=== PATIENT | female | born 2000 | race Caucasian/White ===

== ENCOUNTER 2022-11-09 03:56 | Emergency (ER) | payer OTHER, MEDICAID, SELFPAY ==
[2022-11-09 04:00] VITALS: BP 136/91; PULSE 86; RESP 16; TEMP 36.8; O2SAT 97; BMI 44.7
[2022-11-09] MEDS: FLUORESCEIN SODIUM 1 MG STRIP (04:51)
--- NOTE | 2022-11-09 05:26 | ED_ITS ---
HPI - General Adult General Chief complaint: Eye Problems Stated complaint: BWC, EYE FOREIGN BODY Time Seen by Provider: 11/09/22 05:06 Source: patient Mode of arrival: walk-in Limitations: no limitations History of Present Illness HPI narrative: Patient is a 22-year-old female who is presenting to the Emergency Room with chief concern of having fiberglass shavings in her eyes. 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 Patient was wearing her safety goggles. Patient feels like fiberglass pieces at the factory were blown into her eyes. Patient has very sharp sensation to both arise. Patient irrigated her eyes in the bathroom at work with eyewash and the water in the sink. Patient drove to the Emergency Room for evaluation. Patient was glasses and no contacts. Patient has no loss of vision, blurred vision or double vision. No other acute complaints. This is a worker's comp injury. No drainage or redness noted to the eyes. No obvious foreign bodies noted. Related Data Previous Rx's Medication Instructions Recorded erythromycin 5 mg/gram (0.5 %) eye 0.5 inch ophthalmic (eye) Q4H 1/2 11/09/22 ointment ribbon to each eye every 4 hours x 7-10 days #3.5 grams Allergies Allergy/AdvReac Type Severity Reaction Status Date / Time No Known Drug Allergies Allergy Verified 11/09/22 04:05 Review of Systems ROS Narrative All systems are negative except as noted/marked. All systems reviewed and otherwise negative. PFSH PFS Social History Smoking status: Never smoker Exam Narrative Exam Narrative: Nurses note and vital signs reviewed and patient is not hypoxic. General: The patient appears well and in no apparent distress. Patient is resting comfortably on cart. Patient is not toxic, lethargic, or listless Skin: Warm, dry, no pallor noted. There is no rash noted. No petechiae, purpura. Head: Normocephalic, atraumatic Eye: Normal conjunctiva, no drainage, EOMI. PERRL. see eye exam, see visual acuity chart. Ears, Nose, Mouth, and Throat: oral mucosa is moist. Cardiovascular: Regular Rate and Rhythm, no murmur, gallop, rub Respiratory: Patient is in no distress, no accessory muscle use, lungs are clear to auscultation, no wheezing, rales or rhonchi Musculoskeletal: Patient has full range of motion of all of the extremities, no motor, sensory, or focal neurological deficits Neurological: A&O x3, normal speech Psychiatric: Cooperative Constitutional Vital Signs - 24 hr 11/09/22 04:00 Temperature 98.3 F Pulse Rate [Monitor] 86 Respiratory Rate 16 Blood Pressure [Left Arm] 136/91 H Pulse Oximetry 97 Oxygen Delivery Method Room Air Course Vital Signs Vital signs: Vital Signs Temperature 98.3 F 11/09/22 04:00 Pulse Rate 86 11/09/22 04:00 Respiratory Rate 16 11/09/22 04:00 Blood Pressure 136/91 H 11/09/22 04:00 Pulse Oximetry 97 11/09/22 04:00 Oxygen Delivery Method Room Air 11/09/22 04:00 Temperature 98.3 F 11/09/22 04:00 Pulse Rate 86 11/09/22 04:00 Respiratory Rate 16 11/09/22 04:00 Blood Pressure 136/91 H 11/09/22 04:00 Pulse Oximetry 97 11/09/22 04:00 Oxygen Delivery Method Room Air 11/09/22 04:00 Medical Decision Making MDM Narrative Medical decision making narrative: See eye exam. Visual acuity showed no acute changes. Patient only wears glasses. Patient has no corneal abrasion, ulceration or abrasions noted. Patient was sent home with a home pack for erythromycin ointment. Patient has to drive back to work and the paperwork and then she is going home. Patient will apply eye ointment when she gets home before she goes the bed. Work restrictions were given. Patient will follow-up with occupational health And her own eye physician as well as needed. This is a Worker's Comp. case, patient was referred occupational health Discharge Plan Discharge Chief Complaint: Eye Problems Clinical Impression: Eye foreign bodies Patient Disposition: Home, Self-Care Condition: Fair Prescriptions / Home Meds: New erythromycin 5 mg/gram (0.5 %) ointment 0.5 inch ophthalmic (eye) Q4H Qty: 3.5 0RF Instructions: Eye Foreign Body (ED) Additional Instructions: Follow-up with occupational therapy, name and number provided on paperwork. Stand Alone Forms: Portal Instructions Referrals: Occupational health clinic, [facility] [Other] - As soon as possible Tino Laogs MD [Primary Care Provider] - 1 week Procedures ED Procedure Instructions Procedures Procedures: Eye exam: See visual acuity that was done. Patient had 3 drops of tetracaine placed to both eyes. Patient had good pain relief with tetracaine was placed. Patient had fluorescein stain to both eyes, no ulcerations or foreign bodies or abrasions were noted. Patient had 40 mL of normal saline that was used to flush each eye, Yasmin Godfrey RN was a bedside for assistance. Patient had a procedure well without difficulty. No foreign bodies were noted. No drainage. No redness to the eyes. Upper and lower eyelid were both inverted, no foreign bodies noted.
== END 2022-11-09 05:52 | disposition home or self-care (01) ==
PROVIDERS: Emergency Provider Emergency Medicine; PCP Family Medicine
DX: T15.92XA Foreign body on external eye, part unspecified, left eye, initial encounter (principal); T15.91XA Foreign body on external eye, part unspecified, right eye, initial encounter
CPT/HCPCS: 99283

== ENCOUNTER 2023-02-23 03:02 | Emergency (ER) | payer MEDICAID, SELFPAY ==
[2023-02-23] VITALS (11 sets, daily range): BP systolic 140; BP diastolic 90; PULSE 62–77; RESP 13–26; TEMP 36.5; O2SAT 97; BMI 39.3
--- NOTE | 2023-02-23 03:19 | ECG_ITS ---
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
--- NOTE | 2023-02-23 03:21 | ED.DIZZY1 ---
HPI - Dizziness General Chief Complaint: Dizziness Stated Complaint: n/a Time Seen by Provider: 02/23/23 03:19 Source: patient Mode of arrival: ambulance Limitations: no limitations History of Present Illness HPI Narrative: This 23-year-old female is brought to the emergency department by EMS from work. The patient states that she was feeling fine earlier tonight. She took her lunvh break earlier and went back to her job and then felt dizzy. 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 She states that every time she moves her head she feels dizzy. She does not have a headache. She is not a sore throat. She did have some indigestion type of chest pain. She denies any nausea or vomiting. She has no focal weakness numbness or tingling. She has not fallen. She has been at this job for the past 6 months. 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 She does not smoke. She is not on control. She has no abdominal pain. She has no upper or lower extremity pain or swelling. He has no headache or ear pain. She has not had any upper respiratory symptoms. Does have a history of anxiety and has medication to take if she feels like she is going to have an anxiety attack but states that she does not feel particularly anxious and she has never had an anxiety attack that included dizziness. MD elicited complaint: Reports dizziness Related Data Previous Rx's Medication Instructions Recorded erythromycin 5 mg/gram (0.5 %) eye 0.5 inch ophthalmic (eye) Q4H /2 11/09/22 ointment ribbon to each eye every 4 hours x 7-10 days #3.5 grams Allergies Allergy/AdvReac Type Severity Reaction Status Date / Time No Known Drug Allergies Allergy Verified 02/23/23 03:13 Review of Systems ROS Status of ROS 10 or more systems reviewed and unremarkable except as noted in history and below PFSH PFSH Social History Smoking status: Former smoker Exam Narrative Exam Narrative: Nurses note and vital signs reviewed and patient is not hypoxic. General: Overweight female resting comfortably on a stretcher, GCS 15, no respiratory distress Skin: Warm, dry, no pallor noted. There is no rash noted. Head: Normocephalic, atraumatic Eye: Normal conjunctiva, no drainage, EOMI. PERRL, Vision is grossly normal, no nystagmus noted however the patient did become dizzy with eye movement. Ears, Nose, Mouth, and Throat: oral mucosa is moist. Nares patent. No facial droop Cardiovascular: Regular Rate and Rhythm One S2, no murmurs rubs or gallops appreciated pulses are brisk and equal bilaterally Respiratory: Patient is in no distress, no accessory muscle use, lungs are clear to auscultation, no wheezing, rales or rhonchi Back: non-tender, no CVA tenderness bilaterally to percussion. GI: Normal bowel sounds, no tenderness to palpation, no masses appreciated. No rebound, guarding, or rigidity noted. 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 Psychiatric: Cooperative Constitutional Vital Signs, click to edit/add: Last Vital Signs Temp 97.7 F 02/23/23 03:13 Pulse 65 02/23/23 05:00 Resp 20 02/23/23 05:00 BP 140/90 02/23/23 03:13 Pulse Ox 97 02/23/23 03:13 O2 Del Method Room Air 02/23/23 03:13 Course Vital Signs Vital signs: Vital Signs Temperature 97.7 F 02/23/23 03:13 Pulse Rate 70 02/23/23 03:13 Respiratory Rate 18 02/23/23 03:13 Blood Pressure 140/90 02/23/23 03:13 Pulse Oximetry 97 02/23/23 03:13 Oxygen Delivery Method Room Air 02/23/23 03:13 Temperature 97.7 F 02/23/23 03:13 Pulse Rate 65 02/23/23 05:00 Respiratory Rate 20 02/23/23 05:00 Blood Pressure 140/90 02/23/23 03:13 Pulse Oximetry 97 02/23/23 03:13 Oxygen Delivery Method Room Air 02/23/23 03:13 MDM - Dizziness MDM Narrative Medical decision making narrative: This 23-year-old female with a history of anxiety is brought emergency department from work by EMS for evaluation of dizziness that started during her shift after her break. She complained of some mild left-sided chest pain that was nonradiating. There was no shortness of breath. She does not smoke. She is not on control. She had no nausea or vomiting. Her physical exam and neuro exam are normal. She did have dizziness upon sitting up when I was listening to her lungs and also when I was checking her extraocular muscles. Clinically she has a case of vertigo. She was medicated with IV fluids, meclizine and Valium. EKG done upon arrival was a normal sinus rhythm with no acute changes. Routine labs are ordered and are normal. On reevaluation she had developed hiccups but her dizziness was improving. She did recently see her doctor because she had fluid in her ears and was given a nasal spray likely Flonase. She was given a trial of ambulation but had recurrent room spinning sensation and was put back in the bed. We will remedicate her with zofran and an additional dose of meclizine and continue to monitor. On re-evaluation, she is feeling better still with mild dizziness with change of position, but otherwise feeling better, She will be discharged home with Rx for meclizine and zofran Lab Data Labs: Lab Results 02/23/23 Range/Units 03:40 WBC 10.7 (4.0-11.0) 10^3/uL RBC 4.92 (4.20-5.40) 10^6/uL Hgb 13.6 (12.0-16.0) g/dL Hct 41.3 (36.0-48.0) % MCV 83.9 (81.0-99.0) fL MCH 27.6 (26.7-34.0) pg MCHC 32.9 (29.9-35.2) g/dL RDW 13.0 (11.0-15.0) % Plt Count 281 (150-450) 10^3/uL MPV 10.0 (9.5-13.5) fL Neut % (Auto) 71.3 (43.0-75.0) % Lymph % (Auto) 21.3 (20.5-60.0) % [place] % (Auto) 5.6 (1.7-12.0) % Eos % (Auto) 0.6 L (0.9-7.0) % Baso % (Auto) 0.8 (0.2-2.0) % Neut # (Auto) 7.6 H (1.4-6.5) 10^3/uL Lymph # (Auto) 2.3 (1.2-3.8) 10^3/uL [place] # (Auto) 0.6 (0.3-0.8) 10^3/uL Eos # (Auto) 0.1 (0.0-0.7) 10^3/uL Baso # (Auto) 0.1 (0.0-0.1) 10^3/uL Abs Immat Gran (auto) 0.04 H (0.00-0.03) 10^3/uL Imm/Tot Granulo (auto) 0.4 (0.0-0.5) % Sodium 136 (136-145) mmol/L Potassium 4.0 (3.5-5.1) mmol/L Chloride 103 (98-107) mmol/L Carbon Dioxide 24.7 (21.0-32.0) mmol/L Anion Gap 12.3 BUN 17.0 (7.0-18.0) mg/dL Creatinine 0.68 (0.55-1.02) mg/dL Est GFR ( Amer) >60 (>=60) Est GFR (Non-Af Amer) >60 (>=60) BUN/Creatinine Ratio 25.0 Glucose 100 (74-106) mg/dL Calcium 8.8 (8.5-10.1) mg/dL Total Bilirubin 0.3 (0.2-1.0) mg/dL AST 26 (15-37) U/L ALT 50 (14-59) U/L Alkaline Phosphatase 59 (46-116) U/L Troponin I High Sens <4.0 L (4.0-51.3) pg/mL Total Protein 7.8 (6.4-8.2) g/dL Albumin 3.8 (3.4-5.0) g/dL Globulin 4.0 g/dL Albumin/Globulin Ratio 0.9 ECG Data Attestation: I personally reviewed and interpreted this ECG as follows: (Sinus rhythm at 70 beats for minute, normal axis, normal intervals, no acute ST segment elevation or T-wave inversion) Discharge Plan Discharge Chief Complaint: Dizziness Clinical Impression: Benign paroxysmal positional vertigo Patient Disposition: Home, Self-Care Time of Disposition Decision: 06:54 Prescriptions / Home Meds: No Action erythromycin 5 mg/gram (0.5 %) ointment 0.5 inch ophthalmic (eye) Q4H Qty: 3.5 0RF Stand Alone Forms: Portal Instructions Referrals: Tino Lagos MD [Primary Care Provider] - 1 week
[2023-02-23 03:46] LABS: Basophils Absolute Auto 0.1 10^3/uL (0.0-0.1); Basophils Percent Auto 0.8 % (0.2-2.0); Eosinophils Absolute Auto 0.1 10^3/uL (0.0-0.7); Eosinophils Percent Auto 0.6 % (0.9-7.0); Hematocrit 41.3 % (36.0-48.0); Hemoglobin 13.6 g/dL (12.0-16.0); Immature Granulocytes Abs Auto 0.04 10^3/uL (0.00-0.03); Immature Granulocytes Pct Auto 0.4 % (0.0-0.5); Lymphocytes Absolute Auto 2.3 10^3/uL (1.2-3.8); Lymphocytes Percent Auto 21.3 % (20.5-60.0); Mean Corpuscular HGB Conc 32.9 g/dL (29.9-35.2); Mean Corpuscular Hemoglobin 27.6 pg (26.7-34.0); Mean Corpuscular Volume 83.9 fL (81.0-99.0); Monocytes Absolute Auto 0.6 10^3/uL (0.3-0.8); Monocytes Percent Auto 5.6 % (1.7-12.0); Neutrophils Absolute Auto 7.6 10^3/uL (1.4-6.5); Neutrophils Percent Auto 71.3 % (43.0-75.0); Platelet Count 281 10^3/uL (150-450); Red Blood Count 4.92 10^6/uL (4.20-5.40); White Blood Count 10.7 10^3/uL (4.0-11.0)
[2023-02-23] MEDS: DIAZEPAM 5 MG TABLET PO (03:48)
[2023-02-23] MEDS: 0.9 % SODIUM CHLORIDE 1,000 ML 1000 ML IV (03:48)
[2023-02-23] MEDS: MECLIZINE HCL 12.5 MG TABLET 25 MG PO (03:49)
[2023-02-23 04:04] LABS: Anion Gap 12.3
[2023-02-23 04:05] LABS: Alanine Aminotransferase 50 U/L (14-59); Albumin Globulin Ratio 0.9; Albumin Level 3.8 g/dL (3.4-5.0); Alkaline Phosphatase 59 U/L (46-116); Aspartate Amino Transferase 26 U/L (15-37); Bilirubin Total 0.3 mg/dL (0.2-1.0); Calcium 8.8 mg/dL (8.5-10.1); Carbon Dioxide 24.7 mmol/L (21.0-32.0); Chloride 103 mmol/L (98-107); Estimated GFR (African America >60 (>=60); Estimated GFR (Non-African Ame >60 (>=60); Glucose 100 mg/dL (74-106); Sodium 136 mmol/L (136-145); Total Protein 7.8 g/dL (6.4-8.2); Troponin I High Sensitivity <4.0 pg/mL (4.0-51.3)
[2023-02-23] MEDS: MECLIZINE HCL 12.5 MG TABLET PO (06:09)
[2023-02-23] MEDS: ONDANSETRON PF 4 MG/2 ML VIAL IV (06:10)
== END 2023-02-23 07:08 | disposition home or self-care (01) ==
PROVIDERS: Emergency Provider Emergency Medicine; PCP Family Medicine
DX: H81.10 Benign paroxysmal vertigo, unspecified ear (principal); Z87.891 Personal history of nicotine dependence
CPT/HCPCS: 36415; 80053; 84484; 85025; 93005; 96361; 96374; 99285

== ENCOUNTER 2023-11-22 13:45 | Outpatient (OUT) | payer OTHER, SELFPAY ==
[2023-11-22 14:14] LABS: Basophils Absolute Auto 0.1 10^3/uL (0.0-0.1); Basophils Percent Auto 0.6 % (0.2-2.0); Eosinophils Absolute Auto 0.1 10^3/uL (0.0-0.7); Eosinophils Percent Auto 1.1 % (0.9-7.0); Hematocrit 39.8 % (36.0-48.0); Hemoglobin 12.8 g/dL (12.0-16.0); Immature Granulocytes Abs Auto 0.02 10^3/uL (0.00-0.03); Immature Granulocytes Pct Auto 0.2 % (0.0-0.5); Lymphocytes Absolute Auto 3.6 10^3/uL (1.2-3.8); Mean Corpuscular HGB Conc 32.2 g/dL (29.9-35.2); Mean Corpuscular Hemoglobin 26.9 pg (26.7-34.0); Mean Corpuscular Volume 83.8 fL (81.0-99.0); Mean Platelet Volume 9.8 fL (9.5-13.5); Monocytes Absolute Auto 0.8 10^3/uL (0.3-0.8); Monocytes Percent Auto 8.6 % (1.7-12.0); Neutrophils Absolute Auto 5.1 10^3/uL (1.4-6.5); Neutrophils Percent Auto 52.5 % (43.0-75.0); Platelet Count 276 10^3/uL (150-450); Red Blood Count 4.75 10^6/uL (4.20-5.40); Red Cell Distribution Width 13.2 % (11.0-15.0); White Blood Count 9.7 10^3/uL (4.0-11.0)
[2023-11-22 14:52] LABS: Estimated Average Glucose 111 mg/dL; Glycohemoglobin A1C 5.5 % (4.5-6.2)
[2023-11-22 16:13] LABS: Alanine Aminotransferase 44 U/L (14-59); Albumin Level 3.9 g/dL (3.4-5.0); Alkaline Phosphatase 57 U/L (46-116); Anion Gap 12.7; Aspartate Amino Transferase 22 U/L (15-37); BUN Creatinine Ratio 18.9; Bilirubin Direct 0.1 mg/dL (0.0-0.2); Bilirubin Total 0.4 mg/dL (0.2-1.0); Calcium 9.5 mg/dL (8.5-10.1); Carbon Dioxide 26.1 mmol/L (21.0-32.0); Chloride 104 mmol/L (98-107); Chol HDL Ratio 3.2; Cholesterol 139 mg/dL (<=200); Estimated GFR (African America >60 (>=60); Estimated GFR (Non-African Ame >60 (>=60); Globulin 3.9 g/dL; Glucose 90 mg/dL (74-106); HDL Cholesterol 44 mg/dL (40-60); LDL Cholesterol Calculated 79.4 mg/dL; Potassium 3.8 mmol/L (3.5-5.1); Sodium 139 mmol/L (136-145); Thyroid Stimulating Hormone 7.069 uIU/mL (0.358-3.740); Total Protein 7.8 g/dL (6.4-8.2); Triglycerides 78 mg/dL (<=150); VLDL CHOLESTEROL 15.6 mg/dL
== END 2023-11-22 13:46 | disposition home or self-care (01) ==
LOC: LAB 13:55
PROVIDERS: PCP Family Medicine; Visit Provider Family Medicine
DX: Z00.00 Encounter for general adult medical examination without abnormal findings (principal); E55.9 Vitamin D deficiency, unspecified
CPT/HCPCS: 36415; 80048; 80061; 80076; 82306; 83036; 84443; 85025

== ENCOUNTER 2024-08-14 14:16 | Outpatient (OUT) | payer BC, SELFPAY ==
[2024-08-14 15:10] LABS: Thyroid Stimulating Hormone 1.002 uIU/mL (0.358-3.740)
[2024-08-14 15:37] LABS: Free T4 0.94 ng/dL (0.76-1.46)
== END 2024-08-14 14:17 | disposition home or self-care (01) ==
PROVIDERS: PCP Family Medicine; Visit Provider Family Medicine
DX: E03.9 Hypothyroidism, unspecified (principal)
CPT/HCPCS: 36415; 84439; 84443

== ENCOUNTER 2024-12-25 11:24 | Outpatient (OUT) | payer BC, SELFPAY ==
--- OUTSIDE RECORDS SUMMARY | 2024-12-25 11:42 | XMS_ITS | CCD ---
Author Organization [facility] Care Team Providers Care Job Boss Name Role Phone DEANNE YE Admitting Unavailable DEANNE YE Consulting Unavailable NADEREReji, DR TINO Batista Primary Care Unavailable DEANNE YE Attending Unavailable LUPIS TORREZ Consulting Unavailable NADERER, DR TINO Batista Consulting Unavailable NADEREReji, DR TINO Batista Attending Unavailable NADERER, DR TINO Batista Admitting Unavailable NADERER, DR TINO Batista Primary Care Unavailable Elo Harmon Unavailable NILL, Willie Mendoza Attending Unavailable NILL, Willie Mendoza Admitting Unavailable NILL, Willie Mendoza Referring Unavailable NILL, Willie Mendoza Attending Unavailable NILL, Willie Mendoza Attending Unavailable NILL, Willie Mendoza Admitting Unavailable NILL, Willie Mendoza Referring Unavailable NILL, Willie Mendoza Attending Unavailable Tino Bowen MD Primary Care Provider Dmitriy VILLASEÑOR, Mark Attending Provider Tino Bowen MD Primary Care Provider [phone] Mark Perry MD Attending Provider Tino Bowen MD Primary Care Provider Mark Perry Attending Unavailable Tino Bowen Primary Care Unavailable Mark Perry Admitting Unavailable PerryMark grant Attending Unavailable Tino Bowen Primary Care Unavailable Mark Perry Admitting Unavailable Tino Bowen MD Unavailable TINO BOWEN Attending Unavailable MARK SHIPLEY Attending Unavailable TION BOWEN Referring Unavailable TINO BOWEN Attending Unavailable PERRYMARK BLANCO Attending Unavailable TINO BOWEN Attending Unavailable TINO BOWEN Attending Unavailable TINO BOWEN Attending Unavailable SANGEETA MILLIGAN Attending Unavailable SANGEETA MILLIGAN Attending Unavailable TINO BOWEN Referring Unavailable SRINI, SANGEETA Referring Unavailable JESSIKA ARMSTRONG Attending Unavailable TINO BOWEN Attending Unavailable TINO BOWEN Attending Unavailable Allergies Allergy Classification Reported Allergen(s) Allergy Type Date of Onset Reaction(s) Facility (2 sources) traMADol; Translations: [traMADol] Drug Allergy [facility] Repository (1 source) Naproxen; Translations: [naproxen] Drug Allergy [facility] Repository (20 sources) traMADol Drug Allergy 3 GI intolerance, Nausea Only [facility] (1 source) traMADol Drug Allergy 5 [facility] Repository Medications Current Medications Medication Drug Class(es) Dates Sig (Normalized) Sig (Original) acetaminophen 325 mg / HYDROcodone bitartrate 5 mg oral tablet (8 sources) Opioid Agonist Start: 08-15-2024 take 1 tablet by mouth every six hours as needed for pain Hydrocodone-Aceta minophen 5-325 mg tablet Active 1 TAB PO Q6H as needed for pain 30 12August 15, 2024 Start: 04-25-2024 End: 04-30-2024 take 1 tablet by mouth four times daily as needed for pain HYDROcodone-acetaminophen ([place]) 5-325 MG tablet Indications: Calculus of gallbladder without cholecystitis without obstruction Take 1 tablet by mouth 4 (four) times a day as needed for severe pain or moderate pain for up to 5 days 20 tablet 04/25/2024 04/30/2024 Active Start: 01-30-2024 End: 02-05-2024 take 1 tablet by mouth four times daily as needed for pain HYDROcodone-acetaminophen ([place]) 5-325 MG tablet Indications: Calculus of gallbladder without cholecystitis without obstruction Take 1 tablet by mouth 4 (four) times a day as needed for severe pain or moderate pain for up to 5 days 20 tablet 01/31/2024 02/05/2024 Active [id number] 200 actuat albuterol 0.09 mg/actuat metered dose inhaler (20 sources) beta2-Adrenergic Agonist Start: 08-01-2024 take 1 puff(s) by inhalation every four hours as needed for wheezing Albuterol Sulfate 90 mcg/actuation HFA aerosol inhaler Active 2 PUFF INHALATION Every 4 hours as needed for wheezing August 01, 2024 1:00am Start: 05-01-2024 End: 11-13-2024 take 2 puff(s) by inhalation every four hours for wheezing albuterol HFA 90 mcg/act inhaler Indications: SOB (shortness of breath) Inhale 2 puffs every 4 (four) hours if needed for wheezing 18 g 2 11/13/2024 Active allopurinol 300 mg oral tablet (20 sources) Xanthine Oxidase Inhibitor Start: 08-30-2023 End: 06-10-2024 take 1 tablet by mouth once daily allopurinol (Zyloprim) 300 MG tablet Indications: Gouty arthritis Take 1 tablet (300 mg) by mouth Daily 30 tablet 5 06/10/2024 Active take 1 tablet by mouth once naman y Allopurinol 300 MG TAKE 1 TABLET BY MOUTH EVERY DAY Oral for 30 Days Active ALPRAZolam 0.5 mg oral tablet (20 sources) Benzodiazepine Start: 08-08-2024 End: 12-23-2024 take 1 tablet by mouth three times daily as needed for anxiety ALPRAZolam (Xanax) 0.5 MG tablet Indications: MARIELOS (generalized anxiety disorder) Take 1 tablet (0.5 mg) by mouth 3 (three) times a day as needed for anxiety 60 tablet 1 11/13/2024 Active Start: 01-11-2024 End: 06-10-2024 take 1 tablet by mouth three times daily as needed for anxiety ALPRAZolam (Xanax) 0.5 MG tablet Indications: MARIELOS (generalized anxiety disorder) ([facility]) Take 1 tablet (0.5 mg) by mouth 3 (three) times a day as needed for anxiety for up to 20 days 60 tablet 1 01/11/2024 06/10/2024 Discontinued bacillus coagulans [id number] unt / inulin 250 mg oral capsule (2 sources) Start: 12-25-2024 take 1 capsule by mouth once daily Bacillus Coagulans-Inulin (Probiotic) 1-250 BILLION-MG capsule Indications: Functional diarrhea Take 1 capsule by mouth Daily 30 capsule 5 12/25/2024 Active Start: 12-25-2024 take 1 capsule by mo [facility] once daily Bacillus Coagulans-Inulin (Probiotic) 1-250 BILLION-MG capsule Indications: Functional diarrhea Take 1 capsule by mouth Daily 30 capsule 5 12/25/2024 Active cefdinir 300 mg oral capsule (3 sources) Cephalosporin Antibacterial Start: 06-03-2024 End: 06-13-2024 take 1 capsule by mouth in the morning cefdinir (Omnicef) 300 MG capsule Indications: Upper respiratory tract infection, unspecified type Take 1 capsule (300 mg) by mouth in the morning and 1 capsule (300 mg) before bedtime. Do all this for 10 days. 20 capsule 06/03/2024 06/10/2024 Discontinued cholecalciferol 0.05 mg oral tablet (20 sources) Vitamin D Start: 01-03-2024 End: 11-13-2024 take 1 tablet by mouth once daily cholecalciferol (Vitamin D-3) 50 MCG (2000 UT) tablet Indications: Vitamin D deficiency Take 1 tablet (50 mcg) by mouth Daily 30 tablet 5 11/13/2024 Active cholestyramine resin 4000 mg powder for oral suspension (2 sources) Bile Acid Sequestrant Start: 12-25-2024 take 1 dose by mouth in the morning cholestyramine (Questran) 4 GM/DOSE powder Indications: Functional diarrhea Take 1 packet (4 g) by mouth in the morning and 1 packet (4 g) in the evening. Take with meals. 60 packet 5 12/25/2024 Active Start: 12-25-2024 take 1 dose by mouth in the morning cholestyramine (Questran) 4 GM/DOSE powder Indications: Functional diarrhea Take 1 packet (4 g) by mouth in the morning and 1 packet (4 g) in the evening. Take with meals. 60 packet 5 12/25/2024 Active esomeprazole 40 mg delayed release oral capsule (2 sources) Proton Pump Inhibitor Start: 04-27-2024 End: 07-11-2024 take 1 capsule by mouth once daily esomeprazole (NexIUM) [address] capsule Take 40 mg by mouth Daily 04/27/2024 07/11/2024 Discontinued etonogestrel 68 mg drug implant (20 sources) Progestin Start: 01-18-2024 End: 01-17-2027 etonogestrel-eluti ng 68 mg contraceptive implant 1 each fluticasone propionate 0.05 mg/actuat metered dose nasal spray (1 source) Corticosteroid take 2 spray(s) nasal route once daily Fluticasone Propionate 50 MCG/ACT USE 2 SPRAYS IN EACH NOSTRIL DAILY Nasal for 30 Days Active hydrOXYzine hydrochloride 25 mg oral tablet (3 sources) Antihistamine Start: 08-01-2024 take 1 tablet by mouth four times daily as needed Hydroxyzine Hcl 25 mg tablet Active 25 MG PO Four times daily as needed for anxiety August 01, 2024 1:00am FreeTextSig: TAKE 1 TABLET BY MOUTH FOUR TIMES A DAY NEEDED Oral; Note: Source Status: Taking; Refills: 1; Qty: 60 Each; Provider: JESSI HOPE take 1 tablet by brandi th four times daily as needed hydrOXYzine HCl 25 MG TAKE 1 TABLET BY OUT FOUR TIMES A DAY NEEDED Oral for 15 Days Active levoFLOXacin 750 mg oral tablet (2 sources) Quinolone Antimicrobial Start: 06-10-2024 End: 06-17-2024 take 1 tablet by mouth once daily levoFLOXacin (Levaquin) 750 MG tablet Indications: Upper respiratory tract infection, unspecified type Take 1 tablet (750 mg) by mouth Daily for 7 days 7 tablet 06/10/2024 06/17/2024 Active levothyroxine sodium 0.075 mg oral tablet (20 sources) l-Thyroxine Start: 11-23-2023 End: 11-13-2024 take 1 tablet by mouth before mealtime levothyroxine (Synthroid) 75 MCG tablet Indications: Adult hypothyroidism Take 1 tablet (75 mcg) by mouth in the morning. Take before meals. 30 tablet 3 11/13/2024 Active LORazepam 0.5 mg oral tablet (3 sources) Benzodiazepine Start: 08-01-2024 take 1 tablet by mouth three times daily as needed Lorazepam 0.5 mg tablet Active 0.5 MG PO Three times daily as needed for anxiety August 01, 2024 1:00am FreeTextSig: TAKE 1 TABLET BY MOUTH THREE TIMES A DAY NEEDED Oral; Note: Source Status: Taking; Refills: 0; Qty: 30 Each; Provider: JESSI HOPE take 1 tablet by brandi th three times daily as needed LORazepam 0.5 MG TAKE 1 TABLET BY MOUTH THREE TIMES A DAY NEEDED Oral for 10 Days Active meclizine hydrochloride 25 mg oral tablet (5 sources) Antiemetic take 1 tablet by mouth three times daily as needed for dizziness meclizine (Antivert) 25 MG tablet Take 25 mg by mouth 3 (three) times a day as needed for dizziness Active montelukast 10 mg oral tablet (14 sources) Leukotriene Receptor Antagonist Start: End: take 1 tablet by mouth at bedtime montelukast (Singulair) 10 MG tablet Indications: Chronic rhinosinusitis Take 1 tablet (10 mg) by mouth at bedtime 30 tablet 5 07/11/2024 11/13/2024 Discontinued Multi For Her (1 source) Multi For Her Ac tive Multivitamin (Daily Multi-Vitamin) tablet (1 source) Start: take 1 tablet by mouth once daily Multivitamin (Daily Multi-Vitamin) tablet Active 1 TAB PO Daily August 15, 2024 12:00am pantoprazole 40 mg delayed release oral tablet (20 sources) Proton Pump Inhibitor Start: End: take 1 tablet by mouth in the morning pantoprazole (Protonix) 40 MG EC tablet Indications: Hiatal hernia with GERD and esophagitis Take 1 tablet (40 mg) by mouth in the morning and 1 tablet (40 mg) before bedtime. Do not crush, chew, or split. 60 tablet 5 11/13/2024 Active PARoxetine hydrochloride 40 mg oral tablet (1 source) Serotonin Reuptake Inhibitor take 1 tablet by mouth once daily PARoxetine HCl 40 MG TAKE 1 TABLET BY MOUTH EVERY DAY Oral for 30 Days Active phentermine hydrochloride 37.5 mg oral tablet (20 sources) Sympathomimetic Amine Anorectic Start: take 40-44.9 tablets by mouth before mealtime phentermine (Adipex-P) 37.5 MG tablet Indications: Class 3 severe obesity due to excess calories with serious comorbidity and body mass index (BMI) of 40.0 to 44.9 in adult ([facility]) Take 1 tablet (37.5 mg) by mouth in the morning. Take before meals. 30 tablet 12/25/2024 Active Start: 12-25-2024 take 40-44.9 tablets by mouth before mealtime phentermine (Adipex-P) 37.5 MG tablet Indications: Class 3 severe obesity due to excess calories with serious comorbidity and body mass index (BMI) of 40.0 to 44.9 in adult ([facility]) Take 1 tablet (37.5 mg) by mouth in the morning. Take before meals. 30 tablet 12/25/2024 Active Start: 01-03-2024 End: 12-25-2024 take 40-44.9 tablets by mouth before mealtime phentermine (Adipex-P) 37.5 MG tablet Indications: Class 3 severe obesity due to excess calories with serious comorbidity and body mass index (BMI) of 40.0 to 44.9 in adult (CMS-HCC) Take 1 tablet (37.5 mg) by mouth in the morning. Take before meals. 30 tablet 11/13/2024 12/25/2024 Discontinued (Reorder) predniSONE 50 mg oral tablet (3 sources) Start: 07-11-2024 End: 07-17-2024 take 1 tablet by mouth once daily predniSONE (Deltasone) 50 MG tablet Indications: Chronic rhinosinusitis Take 1 tablet (50 mg) by mouth Daily for 6 days 6 tablet 07/11/2024 07/17/2024 Active Start: 10-11-2022 take 1 tablet by brandi th every twelve hours predniSONE 20 MG 1 tablet Orally bid for 5 day(s) October, Active sertraline 50 mg oral tablet (20 sources) Serotonin Reuptake Inhibitor Start: 12-25-2024 take 1 tablet by mouth once daily sertraline (Zoloft) 50 MG tablet Indications: MARIELOS (generalized anxiety disorder) Take 1 tablet (50 mg) by mouth Daily 30 tablet 5 12/25/2024 Active Start: 12-25-2024 take 1 tablet by brandi th once daily sertraline (Zoloft) 50 MG tablet Indications: MARIELOS (generalized anxiety disorder) Take 1 tablet (50 mg) by mouth Daily 30 tablet 5 12/25/2024 Active Start: 08-08-2024 End: 12-25-2024 take 1 tablet by mouth once daily sertraline (Zoloft) 25 MG tablet Indications: MARIELOS (generalized anxiety disorder) Take 1 tablet (25 mg) by mouth Daily 30 tablet 3 11/13/2024 12/25/2024 Discontinued (Reorder) Start: 11-23-2023 End: 06-10-2024 take 1 tablet by mouth once daily sertraline (Zoloft) 25 MG tablet Indications: MDD (major depressive disorder), single episode, mild (HCC) (CMS/HCC) Take 1 tablet (25 mg) by mouth Daily 30 tablet 3 11/23/2023 06/10/2024 Discontinued triamcinolone acetonide 0.055 mg/actuat metered dose nasal spray (7 sources) Corticosteroid Start: 08-08-2024 End: 11-13-2024 take 2 spray(s) nasal route once daily triamcinolone (Nasacort) 55 MCG/ACT nasal inhaler Indications: Chronic rhinosinusitis Administer 2 sprays into each nostril Daily 16.5 g 3 08/08/2024 11/13/2024 Discontinued Completed/Discontinued Medications Medication Drug Class(es) Dates Sig (Normalized) Sig (Original) Toradol 30 mg/ml (1 source) Start: 10-11-2022 Toradol 30 mg/ml October, 30 mg Problems Active Problems Problem Classification Problem Date Documented Da te Episodic/Chronic Abdominal hernia (20 sources) Gastroesophageal reflux disease with hiatal hernia; Translations: [Diaphragmatic hernia without obstruction or gangrene] Onset: 5 06-10-2024 Episodic Abdominal pain (20 sources) Right upper quadrant pain; Translations: [Right upper quadrant pain] Onset: 4 Resolved: 5 03-04-2024 Episodic Anxiety disorders (20 sources) Generalized anxiety disorder; Translations: [Generalized anxiety disorder] Onset: 4 08-28-2023 Chronic Gout and other crystal arthropathies (20 sources) Gouty arthropathy; Translations: [Gout, unspecified] Onset: 4 08-28-2023 Chronic Menstrual disorders (20 sources) Dysmenorrhea; Translations: [Dysmenorrhea, unspecified] Onset: 4 09-26-2023 Chronic Miscellaneous mental health disorders (20 sources) Primary insomnia; Translations: [Primary insomnia] Onset: 4 08-28-2023 Chronic Mood disorders (20 sources) Mild major depression, single episode; Translations: [Major depressive disorder, single episode, mild] Onset: 4 08-28-2023 Chronic Nutritional deficiencies (20 sources) Vitamin D deficiency; Translations: [Vitamin D deficiency, unspecified] Onset: 4 08-28-2023 Chronic Other aftercare (2 sources) Long-term current use of drug therapy; Translations: [Other termite control technician (current) drug therapy] 12-25-2024 Episodic Other gastrointestinal disorders (2 sources) Functional diarrhea; Translations: [Functional diarrhea] 12-25-2024 Episodic Other gastrointestinal disorders (2 sources) Diarrhea; Translations: [Diarrhea, unspecified] Onset: 5 12-25-2024 Episodic Other lower respiratory disease (7 sources) Dyspnea; Translations: [Shortness of breath] Onset: 5 11-13-2024 Episodic Other nervous system disorders (1 source) Acute postoperative pain; Translations: [Other acute postprocedural pain] 08-15-2024 Episodic Other non-traumatic joint disorders (1 source) Pain in right shoulder Episodic Other nutritional; endocrine; and metabolic disorders (13 sources) Morbid obesity; Translations: [Morbid (severe) obesity due to excess calories] Onset: 4 03-28-2024 Chronic Other nutritional; endocrine; and metabolic disorders (20 sources) Severe obesity; Translations: [Class 3 severe obesity due to excess calories with serious comorbidity and body mass index (BMI) of 40.0 to 44.9 in adult ([facility])] Onset: 4 06-10-2024 Chronic Other upper respiratory disease (15 sources) Allergic rhinitis due to pollen; Translations: [Allergic rhinitis due to pollen] Onset: 4 08-28-2023 Chronic Other upper respiratory infections (19 sources) Chronic sinusitis, unspecified; Translations: [Chronic rhinitis] Onset: 4 07-11-2024 Chronic Other upper respiratory infections (2 sources) Upper respiratory infection; Translations: [Acute upper respiratory infection, unspecified] 06-10-2024 Episodic Sprains and strains (1 source) Strain of unspecified muscle, fascia and tendon at shoulder and upper arm level, right arm, initial encounter Episodic Thyroid disorders (20 sources) Hypothyroidism; Translations: [Hypothyroidism, unspecified] Onset: 4 11-23-2023 Chronic Unclassified (1 source) CONTACT W/AND (SUSP) EXPOS COVID-19; Translations: [CONTACT W/AND (SUSP) EXPOS COVID-19] Onset: 2 Past or Other Problems Problem Classification Problem Date Documented Date Episodic/Chronic Biliary tract disease (20 sources) Cholelithiasis without obstruction; Translations: [Calculus of gallbladder without cholecystitis without obstruction] Onset: 01-30-2024 Resolved: 11-13-2024 01-30-2024 Episodic Conditions associated with dizziness or vertigo (20 sources) Labyrinthitis of bilateral inner ears; Translations: [Labyrinthitis, bilateral] Onset: 09-26-2023 Resolved: 11-23-2023 11-23-2023 Episodic Fever of unknown origin (1 source) Fever, unspecified; Translations: [FEVER UNSPECIFIED] Onset: 05-10-2022 Episodic Nonspecific chest pain (4 sources) Other chest pain; Translations: [OTHER CHEST PAIN] Onset: 05-09-2022 Episodic Other skin disorders (20 sources) Acne vulgaris; Translations: [Acne vulgaris] Onset: 08-28-2023 08-28-2023 Episodic Other upper respiratory disease (1 source) Acute bronchospasm; Translations: [ACUTE BRONCHOSPASM] Onset: 05-10-2022 Episodic Results Test Name Value Interpretation Reference Range Facility Alkaline Phosphataseon 08-15 ALP [Catalytic activity/Vol] 54 U/L Normal 34-104 [facility] Comment on above: Performed By: #### B ILTD, ALP, LIPASE, RODNEY #### [facility] [address] Alkaline phosphataseon 08-15 ALP [Catalytic activity/Vol] 54 U/L 34 - 104 U/L [facility] Alkaline phosphatase [Enzyma tic activity/volume] in Serum or PlasmaOrdered By: Mark Perry on 08-15-2024 ALP [Catalytic activity/Vol] Alkaline phosphatase [Enzymatic activity/volume] in Serum or Plasma 34-104 [facility] Amylaseon 08-15-2024 Amylase [Catalytic activity/Vol] 37 U/L 29 - 103 U/L [facility] Amylase [Catalytic activity/Vol] 37 U/L Normal 29-103 [facility] Comment on above: Performed By: #### B ILTD, ALP, LIPASE, RODNEY #### [facility] [address] Amylase [Enzymatic activity/ volume] in Serum or PlasmaOrdered By: Mark Perry on 08-15-2024 Amylase [Catalytic activity/Vol] Amylase [Enzymatic activity/volume] in Serum or Plasma 29-103 [facility] Bilirubin, Total and Directo n 08-15-2024 Bilirubin [Mass/Vol] 0.4 mg/dL Normal 0.3-1.0 [facility] Comment on above: Performed By: #### B ILTD, ALP, LIPASE, RODNEY #### [facility] [address] Bilirubin,Indirect 0.3 mg/dL Normal [facility] Comment on above: Performed By: #### B ILTD, ALP, LIPASE, RODNEY #### [facility] [address] Bilirubin.indirect [Mass/Vol] 0.10 mg/dL Normal 0.03-0.18 [facility] Comment on above: Performed By: #### B ILTD, ALP, LIPASE, RODNEY #### [facility] [address] Bilirubin, total and directo n 08-15-2024 Bilirubin [Mass/Vol] 0.4 mg/dL 0.3 - 1 .0 mg/dL [facility] Bilirubin.indirect [Mass/Vol] 0.1 mg/dL 0.03 - 0.18 mg/dL [facility] Magnesium [Mass/Vol] 0.3 mg/dL [facility] Bilirubin.direct [Mass/volum e] in Serum or PlasmaOrdered By: Mark Perry on 08-15-2024 Bilirubin.direct [Mass/Vol] Bilirubin.direct [Mass/volume] in Serum or Plasma 0.03-0.18 [facility] Bilirubin.total [Mass/volume ] in Serum or PlasmaOrdered By: Mark Perry on 08-15-2024 Bilirubin [Mass/Vol] Bilirubin.total [Mass/volume] in Serum or Plasma 0.3-1.0 [facility] HCG ( test) Tony gore Ql (U)Ordered By: NEGRO BRINK on 08-15-2024 HCG ( test) Ql (U) Urine human chorionic gonadotropin (hCG) detection by immunoassay [facility] HCG,Urineon 08-15-2024 Beta HCG ( test) Ql (U) Negative Normal [facility] Comment on above: Result Comment: PERF ORMED BY: [facility] [address] [id number] PATHOLOGIST SENIOR STAFF ACCOUNTANT TRACI BEARDEN M.D. Performed By: #### U HCG #### [facility] [address] [place] [id number] [facility] 08-15-2024 L ---- Specimen: [id number] Received: 08/16/24 Status: ECHO Joseph Num: [id number] Spec Type: Surgical Subm Dr: Mark Perry MD Tissues: A Gallbladder (GALLBLADDER) Procedures: Annabel MILNER/Raza L3 Age/ Patient Sex Location Account Attending Physician Armando Mcrae / [place] [id number] Mark Perry MD SPEC NUM: [id number] RECD: 08/16/24 STATUS: ECHO JOSEPH NUM: [id number] ROBIN: 08/15/24 [facility] DR: Mark Perry MD ENTERED: 08/16/[address] [facility] [address]: JOEL TYPE: Surgical DEPT: S ORDERED: HE, Gross/Micro L3 ORDERED: HE, Gross/Micro L3 Pathological Diagnosis Gallbladder, cholecystectomy: -Severe cholelithiasis with mildly associated calculus chronic cholecystitis -Severe cholesterolosis -Occasional mild pyloric metaplasia, otherwise without malignancy, intestinal metaplasia, or glandular dysplasia identified Clinical Information Cholelithiasis Gross Description Part A is received in formalin labeled with the patients name, date of , and gallbladder is a collapsed and disrupted gallbladder, 6.3 x 2.8 x 1.3 cm, with a 0.3 cm in greatest dimension cystic duct closed by a silver metallic staple. A periductal lymph node is not identified. The serosa is rosas-blue, smooth and glistening; the hepatic bed is rough and irregular with a 0.4 cm in greatest dimension transmural defect. The gallbladder is open to exude a obrien-green, viscous bile with 4 obrien-yellow, multifaceted calculi, ranging from 0.7 to 1 cm in greatest dimension. The mucosa is obrien-green and velvety with yellow striations. The wall the gallbladder ranges from 0.1 to 0.2 cm in thickness. Saw Straightener sections are submitted in a single cassette. (1, , [id number]) BENJAMIN Specimen: [id number] Received: 08/16/24 Status: ECHO Joseph Num: [id number] Spec Type: Surgical Subm Dr: Mark Perry MD Tissues: A Gallbladder (GALLBLADDER) Procedures: Annabel MILNER/Raza L3 Patient: ThorArmando L [id number] (Continued) Specimen: [id number] Received: 08/16/24 (Continued) Signed (signature on file) Yadi Almonte MD 08/19/24 1534 Specimen: [id number] Received: 08/16/24 Status: ECHO Joseph Num: [id number] Spec Type: Surgical Subm Dr: Mark Perry MD Tissues: A Gallbladder (GALLBLADDER) Procedures: Krys MILNER Patient: Armando Mcrae [id number] (Continued) Specimen: [id number] Received: 08/16/24 (Continued) Microscopic Description Microscopic examination is performed CPT Codes 09022 Specimen: [id number] Received: 08/16/24 Status: ECHO Joseph Num: [id number] Spec Type: Surgical Subm Dr: Mark Perry MD Tissues: A Gallbladder (GALLBLADDER) Procedures: ANNIA, Gross/Micro L3 Patient: Armando Mcrae [id number] (Continued) Signed (signature on file) Henrique-Kalyan Almonte MD 08/19/24 1534 Normal [facility] Lipaseon 08-15-2024 Lipase [Catalytic activity/Vol] 14 U/L 11.0 - 82.0 U/L [facility] Lipase [Catalytic activity/Vol] 14.0 U/L Normal 11.0-82.0 [facility] Comment on above: Result Comment: PERF ORMED BY: [place] [address] PATHOLOGIST SENIOR STAFF ACCOUNTANT TRACI BEARDEN M.D. Performed By: #### B ILTD, ALP, LIPASE, RODNEY #### [facility] [address] Lipase [Enzymatic activity/v olume] in Serum or PlasmaOrdered By: Mark Perry on 08-15-2024 Lipase [Catalytic activity/Vol] Lipase [Enzymatic activity/volume] in Serum or Plasma 11.0-82.0 [facility] No Panel Informationon 08-15 [facility] Serum or plasma non-glucuron idated bilirubin measurement (mass/volume)Ordered By: Mark Perry on 08-15-2024 Bilirubin.indirect [Mass/Vol] Serum or plasma non-glucuronidated bilirubin measurement (mass/volume) [facility] ALL THYROID STIM HORMONEon 0 08-14-2024 TSH Qn 1.002 m[IU]/L [facility] CLINISYNC [facility] Ambulatory Visit Summaryon 1 Ambulatory Visit Summary Ambulatory Visit Summary ARMANDO MCRAE :2000 Visit Date:03/19/2024 Ambulatory Visit Instructions Your Diagnosis Hiatal hernia with GERD and esophagitis Gastro-esophageal reflux disease with esophagitis, without bleeding Your Care Team Attending Physician - EMERSON VILLASEÑOR, Willie Mendoza Primary Care Physician - JESSI VILLASEÑOR, TINO This Is Your Medications List Contact prescribing physician if questions or concerns allopurinol (allopurinol 300 mg Tab) alprazolam (alprazolam 0.5 mg Tab) etonogestrel (Nexplanon) levothyroxine (levothyroxine 75 mcg (0.075 mg) Tab) pantoprazole (Protonix 40 mg Tab-DR) phentermine (Adipex-P 37.5 mg Tab) sertraline (Zoloft 25 mg Tab) Procedures Performed EGD - esophagogastroduodenosco py (03/08/2024). Medications What How Much When Why Instructions Unchanged allopurinol (allopurinol 300 mg Tab) 1 Tablets By Mouth Every day Contact prescribing physician if questions or concerns Unchanged alprazolam (alprazolam 0.5 mg Tab) 1 Tablets By Mouth 3 times a day as needed for for anxiety Contact prescribing physician if questions or concerns Unchanged etonogestrel (Nexplanon) Contact prescribing physician if questions or concerns Unchanged levothyroxine (levothyroxine 75 mcg (0.075 mg) Tab) 1 Tablets By Mouth Every day Contact prescribing physician if questions or concerns Unchanged pantoprazole (Protonix 40 mg Tab-DR) 1 Tablets By Mouth Every day Hiatal hernia with gastroesophageal reflux disease and esophagitis Contact prescribing physician if questions or concerns Unchanged phentermine (Adipex-P 37.5 mg Tab) 1 Tablets By Mouth Every day Contact prescribing physician if questions or concerns Unchanged sertraline (Zoloft 25 mg Tab) 1 Tablets By Mouth Every day Contact prescribing physician if questions or concerns Allergies naproxen (Gastrointestinal upset) traMADol (Nausea) Problems Ongoing - Any problem that you are currently receiving treatment for. Acne vulgaris Benign paroxysmal positional vertigo BMI 40.0-44.9, adult Cholelithiasis Epigastric pain MARIELOS (generalized anxiety disorder) Gouty arthritis Hiatal hernia with GERD and esophagitis Hypothyroidism Insomnia MDD (major depressive disorder) Morbid obesity Right upper quadrant pain Seasonal allergic reaction Historical - Any problem that you are no longer receiving treatment for. None Patient Survey You may receive a survey via text or e-mail asking about your office visit. Please share your experience with us by completing your survey. We appreciate your feedback and thank you for choosing us for your care. Normal [facility] CT Abdomen/Pelvis w/ Contras ton 03-19-2024 CT Abdomen/Pelvis w/ Contrast Exam Date/Time: 03/13/2024 11:11 EDT Reason for Exam: R10.13;Pain Report IMPRESSION: NO ACUTE FINDINGS. CT of the abdomen and pelvis with intravenous contrast medium. History: Pain, R10.13. . Hernia. Technical Factors: CT imaging of the abdomen and pelvis were obtained and formatted as 5 mm contiguous axial images from the domes of the diaphragm to the symphysis pubis. Sagittal and coronal reconstructions were also obtained. Oral contrast medium: Barium sulfate, 900 mL. Intravenous contrast medium: Isovue-300, 100 mL. Comparison: None Findings: Lower chest cardiac size normal. No pericardial effusion. No coronary artery calcification. Lung bases clear. No hiatal hernia. Liver: Normal in size, shape, and attenuation. Bile Ducts: Normal in caliber. Gallbladder: No stones or wall thickening. Pancreas: Normal without masses, cysts, ductal dilatation or calcification. Spleen: Normal in size without masses or calcifications. No splenules. Kidneys: Normal in size and enhancement. No hydronephrosis, masses, or stones. Adrenals: Normal. Small bowel: Normal in caliber. Appendix: Normal. Colon: Normal in caliber. Peritoneum: No ascites, free air, or fluid collections. Vessels: Aorta normal in course and caliber. Portal vein, splenic vein, superior Report mesenteric vein are patent. Lymph nodes: Retroperitoneal: No enlarged retroperitoneal lymph nodes. Mesenteric: No enlarged mesenteric lymph nodes. Pelvic: No enlarged pelvic lymph nodes. Ureters: Normal in course and caliber. No calcifications. Bladder: No wall thickening. Reproductive organs: No pelvic masses. Abdominal Wall: No hernia identified. No diastasis of rectus musculature. No edema or masses. Bones: No bone lesions. No degenerative changes. No post operative changes. All CT scans at this facility use dose modulation, iterative reconstruction, and/or weight based dosing when appropriate to reduce radiation dose to as low as reasonably achievable. Ordering Provider: Willie ALEX FINAL REPORT Dictated: 03/19/2024 12:13 pm Jude Solis MD Signed (Electronic Signature): 03/19/2024 12:13 pm Signed by: Jude Solis MD Transcribed by: BEAU Technologist: OMAR Technical Comments GFR (mL/min/1/73m2) age Contrast: Isovue 300 Contrast amount in ml's: 100 Oral contrast amount in ml's: 900 Normal [facility] General Surgery Office/Clini c Noteon 03-19-2024 General Surgery Office/Clinic Note General Surgery Office/Clinic Note Chief Complaint post operative follow up HPI Staff 11 day post operative follow up post EGD. Prescribed Protonix 40mg daily, she believes this is causing nausea and headaches. CT ABD/pelvis completed 03/13. History of Present Illness s/p EGD due to upper abd pain; evidence of small sliding hiatal hernia and moderate distal esophagitis; no ulcers or gastritis; begun on Protonix daily; patient reports headaches with Protonix and intermittent nausea; no emesis; pain improved; abd/pelvic ct scan completed, not read; images reviewed, gallbladder without distension, no inflammation or ductal dilation. possible thickening of distal small bowel. Review of Systems ROS - Provider Constitutional: no fever, no sweats, no weight loss. Eyes: no glasses, no blurred vision, no visual loss. ENMT: no dentures, no hoarseness, no swallowing difficulties, no hearing loss, no ear infection(s), no nose bleeds. Cardiovascular: normal blood pressure, no chest pain, regular heartbeat, no heart murmur. Respiratory: no shortness of breath, no cough, no asthma, no wheezing. Gastrointestinal: no nausea, no vomiting, no diarrhea, no constipation, no blood in stool, no change in bowel habits, no abdominal pain, no hepatitis. Genitourinary: no kidney stones, no urine infection, no dysuria. Musculoskeletal: no pain, no weakness. Skin: no changing moles, no rash, no skin lumps. Neurologic: no seizures, no epilepsy, no headache. Psychiatric: no emotional or psychiatric problem. Heme/Lymph: no bleeding problems, no anemia, no blood clots, no transfusions. Allergy/Immunologic: no swollen lymph nodes/glands, no IV drug abuse. Other: Additional ROS info: Except as noted in the above Review of Systems and in the History of Present Illness, all other systems have been reviewed and are negative or noncontributory. Assessment/Plan 1. Hiatal hernia with GERD and esophagitis (K44.9: Diaphragmatic hernia without obstruction or gangrene) will change PPI to Nexium daily; will call patient with abd/pelvic ct scan results; no evidence of acute gallbladder problem; symptoms not consistent with biliary colic; call sooner if problems/questions. Ordered: esomeprazole, 40 mg, Oral, Daily, Pharmacy may substitue PPI covered by insurance [employer], X 3 months, # 30 cap(s), Refills(s) 3, Pharmacy: [facility], 165, cm, 03/08/24 7:49:00 EDT, Height/Length Dosing, 113.9, kg, 03/08/24 7:49:00 EDT, Weight Dosing 2. Epigastric pain (R10.13: Epigastric pain) see # 1 3. Right upper quadrant pain (R10.11: Right upper quadrant pain) see # 1 Gastro-esophageal reflux disease with esophagitis, without bleeding (K21.00: Gastro-esophageal reflux disease with esophagitis, without bleeding) Ordered: esomeprazole, 40 mg, Oral, Daily, Pharmacy may substitue PPI covered by insurance [employer], X 3 months, # 30 cap(s), Refills(s) 3, Pharmacy: [facility], 165, cm, 03/08/24 7:49:00 EDT, Height/Length Dosing, 113.9, kg, 03/08/24 7:49:00 EDT, Weight Dosing Follow-up No qualifying data available Problem List/Past Medical History Ongoing Acne vulgaris Benign paroxysmal positional vertigo BMI 40.0-44.9, adult Cholelithiasis Epigastric pain MARIELOS (generalized anxiety disorder) Gouty arthritis Hiatal hernia with GERD and esophagitis Hypothyroidism Insomnia MDD (major depressive disorder) Morbid obesity Right upper quadrant pain Seasonal allergic reaction Historical None Procedure/Surgical History EGD - esophagogastroduodenosco py (03/08/2024). Medications Adipex-P 37.5 mg Tab, 37.5 mg= 1 tab(s), Oral, Daily allopurinol 300 mg Tab, 300 mg= 1 tab(s), Oral, Daily alprazolam 0.5 mg Tab, 0.5 mg= 1 tab(s), Oral, TID, PRN levothyroxine 75 mcg (0.075 mg) Tab, 75 mcg= 1 tab(s), Oral, Daily Nexium 40 mg Cap-EC, 40 mg, Oral, Daily, 3 refills Nexplanon Protonix 40 mg Tab-DR, 40 mg= 1 tab(s), Oral, Daily, 1 refills Zoloft 25 mg Tab, 25 mg= 1 tab(s), Oral, Daily Allergies naproxen (Gastrointestinal upset) traMADol (Nausea) Social History Alcohol - Denies Alcohol Use, 09/14/2011 Substance Abuse - Denies Substance Abuse, 09/14/2011 Tobacco - Denies Tobacco Use, 09/14/2011 Former smoker, quit more than 30 days ago Tobacco Use:. Smokeless tobacco user within last 30 days Smokeless Tobacco Use:. Cigarettes, Vaping, Started age 20.0 Years. Stopped age 21 Years., 02/22/2024 Family History Asthma: Brother. Immunizations Vaccine Date Status SARS-CoV-2 (COVID-19) mRNA-1273 vaccine 12/17/2020 Recorded SARS-CoV-2 (COVID-19) mRNA-1273 vaccine 11/19/[address] [facility] Comment on above: Result Comment: Elec tronically Signed By: Willie ALEX MD\.br\Date and Time Signed: 03/19/24 10:52 EDT Main OR Intraoperative Recor don 03-12-2024 Main OR Intraoperative Record Main OR Intraoperative Record IntraOp Document Type FT Summary Primary Physician: Willie ALEX MD Finalized Date/Time: 03/12/24 08:34:10 Pt. Name: ARMANDO MCRAE D.O.B./Sex: 2000 Female Med Rec #: [id number] Physician: Willie ALEX MD Financial #: [id number] Pt. 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 - Primary Registered Nurse Step Down - Primary Time In 03/08/24 08:54:00 03/08/24 08:54:00 03/08/24 08:54:00 Time Out 03/08/24 09:04:00 03/08/24 09:04:00 03/08/24 09:04:00 Procedure EGD(.) EGD(.) EGD(.) Comments Last Modified By: Henry HOGAN, Maria Luisa Figueroa RN, Maria Luisa Barksdale RN 03/08/24 09:04:46 03/08/24 09:04:46 03/08/24 09:04:46 Entry 4 Case Attendee Mohinder Barrett Role Performed Scrub - Primary Time In 03/08/24 08:54:00 Time Out 03/08/24 09:04:00 Procedure EGD(.) Comments Last Modified By: Maria Luisa Figueroa RN 03/08/24 09:04:46 Perioperative Protocols FT Pre-Care Text: Implements protective measures prior to operative or invasive procedure, confirms identity before the operative or invasive procedure, verifies operative procedure, surgical site, and laterality Entry 1 Procedure(s) EGD(.) Patient Identity Birthday, ID Band Verified (select at Check, Patient least 2): Participation Consents / H and P Anesthesia Consent, Operative Site N/A Verified H&P, Surgery/Procedure Marking Verified Consent Surgical Site No Laterality Verified n/a Verified Procedure Verified Yes Correct Patient Yes Position Verified Availability Equipment, Medication Prep Dry n/a Verified (If Applicable) PreOp Antibiotic No Time Out Lynn BANSAL CRNA, EMERSON Pozo MD, Henry Gaitan RN, Nena Glass Micala E Time Out Complete 03/08/24 08:56:00 Outcomes Met? Yes Last Modified By: Maria Luisa Figueroa RN 03/08/24 08:57:31 Post-Care Text: The patient is free from signs and symptoms of injury caused by extraneous objects Allergy Information FT Pre-Care Text: Verifies allergies Entry 1 Allergies Reviewed? Yes Allergies Reviewed Self/Patient With Outcomes Met? Yes Last Modified By: Maria Luisa Figueroa RN 03/08/24 08:58:00 Post-Care Text: The patient received appropriate medication(s) safely administered during the perioperative period Surgical Procedures FT Entry 1 Procedure Description Procedure EGD Modifiers . Surgeon Description EGD Primary Procedure Yes Primary Surgeon Willie ALEX MD Start 03/08/24 08:58:00 Stop 03/08/24 09:02:00 Anesthesia Type General Surgical Service General Wound Class 2 - Clean-Contaminated Last Modified By: Maria Luisa Fgiueroa RN 03/08/24 09:02:42 General Case Data FT Pre-Care Text: Classifies surgical wound, implements aseptic technique, initiates traffic control Entry 1 Case Information OR ENDO 2 FT Case Level Level 2 Wound Class 2 - Clean-Contaminated Specialty General ASA Class 3 Preop Diagnosis RUQ PAIN Postop Same As Preop No Postop Diagnosis Small hiatal hernia, Outcomes Met? Yes esophagitis Last Modified By: Maria Luisa Figueroa RN 03/08/24 09:02:57 Post-Care Text: The patient is free from signs and symptoms of infection Skin Assessment (Pre Procedure) FT Pre-Care Text: Implements protective measures to prevent skin/ tissue injury due to thermal or mechanical sources Evaluates for signs and symptoms of physical injury to skin and tissue Entry 1 Skin Integrity Intact, Boley, Warm, & Skin Abnormality No Dry Outcomes Met? Yes Last Modified By: Maria Luisa Figueroa RN 03/08/24 09:03:03 Post-Care Text: The patient is free from signs and symptoms of injury caused by extraneous objects Patient Positioning FT Pre-Care Text: Identifies physical alterations that require additional precautions for procedure-specific positioning, verifies presence of prosthetics or corrective devices, positions the patient, evaluates the patient for signs and symptoms of injury as a result of positioning Entry 1 Procedure EGD(.) Body Position Lateral, right side up Feet Uncrossed? Yes Left Arm Position Resting at Side Right Arm Position Resting at Side Left Leg Position Extended Right Leg Position Extended Positioning Device Safety Strap, Pillow Under Head Large Press Points Checked Yes By Maria Luisa Figueroa RN Outcomes Met? Yes Last Modified By: Maria Luisa Figueroa RN 03/08/24 09:03:10 Post-Care Text: The (more content not included)... Normal [facility] Discharge Instructionson Discharge Instructions Discharge Instrjohn bonilla ARMANDO MCRAE :2000 Visit Date:03/08/2024 Inpatient Discharge Instructions Your Care Team Admitting Physician - Willie ALEX MD Referring Physician - EMERSON VILLASEÑOR, Willie Mendoza Reason for Your Visit RUQ PAIN Your Diagnosis Gastro-esophageal reflux disease with esophagitis, without bleeding Hiatal hernia with gastroesophageal reflux disease and esophagitis This Is Your Medications List allopurinol (allopurinol 300 mg Tab) alprazolam (alprazolam 0.5 mg Tab) etonogestrel (Nexplanon) levothyroxine (levothyroxine 75 mcg (0.075 mg) Tab) pantoprazole (Protonix 40 mg Tab-DR) phentermine (Adipex-P 37.5 mg Tab) sertraline (Zoloft 25 mg Tab) Procedure History None. Discharge Vitals Temperature (Temporal Artery) 37.1 ?C Heart Rate (Monitored) 123 Respiratory Rate 12 Blood Pressure 139/89 Height 165 cm Weight 113.9 kg BMI 41.84 What to do next Instructions From Your Doctor Event Name Event Result Discharge Activity Resume normal activities in 24 hours, Arrange for a responsible adult supervision for 24 hours Discharge Restrictions No driving for 24 hrs, Do not operate machinery or tools, Do not make important decisions for 24 hours, Do not drink alcoholic beverages for 24 hours Discharge Diet(s) Regular Call Your Doctor For Persistent or heavy bleeding, Temperature above 101.5 degrees, Redness, swelling, or pus at operative site, Severe pain at the operative site, Persistent vomiting Discharge Instructions Discharge Instructions Previously Scheduled Follow-Up Appointments Monday 11:00 AM EDT Where: [facility] New Follow Up Appointments after Discharge Follow Up with Willie ALEX When: Within 1 to 2 weeks Where: [facility] [place], [address] [address]- Business (1) Medications What How Much When Why Instructions Next Dose New pantoprazole (Protonix 40 mg Tab-DR) 1 Tablets By Mouth Every day Hiatal hernia with gastroesophageal reflux disease and esophagitis Refills: [address] [facility] Unchanged allopurinol (allopurinol 300 mg Tab) 1 Tablets By Mouth Every day Unchanged alprazolam (alprazolam 0.5 mg Tab) 1 Tablets By Mouth 3 times a day as needed for for anxiety Unchanged etonogestrel (Nexplanon) Unchanged levothyroxine (levothyroxine 75 mcg (0.075 mg) Tab) 1 Tablets By Mouth Every day Unchanged phentermine (Adipex-P 37.5 mg Tab) 1 Tablets By Mouth Every day Unchanged sertraline (Zoloft 25 mg Tab) 1 Tablets By Mouth Every day Pharmacy Information [facility]: [address] [place], [place] [id number] [phone] Test Results No qualifying data available. Allergies naproxen (Gastrointestinal upset) traMADol (Nausea) Problems Ongoing - Any problem that you are currently receiving treatment for. Acne vulgaris Benign paroxysmal positional vertigo BMI 40.0-44.9, adult Cholelithiasis Epigastric pain MARIELOS (generalized anxiety disorder) Gouty arthritis Hypothyroidism Insomnia MDD (major depressive disorder) Morbid obesity Right upper quadrant pain Seasonal allergic reaction Historical - Any problem that you are no longer receiving treatment for. None Education Materials Hiatal Hernia A hiatal hernia occurs when part of the stomach slides above the muscle that separates the abdomen from the chest (diaphragm). A person can be born with a hiatal hernia (congenital), or it may develop over time. In almost all cases of hiatal hernia, only the top part of the stomach pushes through the diaphragm. Many people have a hiatal hernia with no symptoms. The larger the hernia, the more likely it is that you will have symptoms. In some cases, a hiatal hernia allows stomach acid to flow back into the tube that carries food from your mouth to your stomach (esophagus). This may cause heartburn symptoms. The development of heartburn symptoms may mean that you have a condition called gastroesophageal reflux disease (GERD). What are the causes? This condition is caused by a weakness in the opening (hiatus) where the esophagus passes through the diaphragm to attach to the upper part of the stomach. A person may be born with a weakness in the hiatus, or a weakness can develop over time. What increases the risk? This condition is more likely to develop in: ? Older people. Age is a major risk factor for a hiatal hernia, especially if you are over the age of 50. ? women. ? People who are overweight. ? People who have frequent constipation. What are the signs or symptoms? Symptoms of this condition usually develop in the form of GERD symptoms. Symptoms include: ? Heartburn. ? Upset stomach (indigestion). ? Trouble swallowing. ? Coughing or wheezing. Wheezing is making high-pitched whistling sounds when you breathe. ? Sore thro (more content not included)... Normal [facility] Comment on above: Result Comment: Elec tronically Signed By: Alis HOGAN, Amanda\.br\Date and Time Signed: 03/08/24 09:26 EDT EGDon 03-08-2024 Esophagogastroduodenosc opy EGD Patient: ARMANDO MCRAE Age: 24 years Sex: Female : 2000 Associated Diagnoses: None Author: Willie ALEX MD Pre-Procedure Procedure Date 03/08/2024 09:10:00 . Procedure Type: Esophagogastroduodenosco py. Procedure provider Performed by Willie ALEX MD. Current history and physical Documented on chart. Pre-procedure diagnosis: Dyspepsia. Epigastric pain. ASA Classification: Class III. . Monitoring: See anesthesia record. . Procedure The procedure was performed in the hospital. See anesthesia record for sedation given during procedure. The patient was positioned starting in the left lateral decubitus position. Endoscope type used was an adult-size, introduced orally, advanced to the 2nd portion of the duodenum. No difficulty was encountered during the procedure. Views were excellent. The patient tolerated the procedure well. Findings The esophagitis was located at the distal esophagus. The affected area was exhibiting linear furrowing. Severity. The squamocolumnar junction appeared irregular. The hernia is described as a sliding hernia, small. Examination of the duodenum revealed a normal duodenum. Images Procedure images: esophagitis distal esophagus [id number] antrum duodenum . Post-Procedure Complications: none. Estimated blood loss: none. Devices/ implants: none left in place. Impression and Plan EGD: Diagnosis: Hiatal hernia with gastroesophageal reflux disease and esophagitis (AYW32-HF K44.9, Discharge, Medical). Course: Progressing as expected. Education and Follow-up: Counseled: Family. Normal [facility] Comment on above: Other Comment: Zully bautista Attachment - attachment storage system not supported [id number] Can be viewed in source system Missing Attachment - attachment storage system not supported [id number] Can be viewed in source system Missing Attachment - attachment storage system not supported [id number] Can be viewed in source system Missing Attachment - attachment storage system not supported [id number] Can be viewed in source system Missing Attachment - attachment storage system not supported [id number] Can be viewed in source system Inpatient Patient Summaryon 03-08-2024 Inpatient Patient Summary Inpatient Patient Summary [place] [id number] [facility] Clinical Discharge Instructions PERSON INFORMATION Name: ARMANDO MCRAE PHYSICIANS Admitting Physician: Willie ALEX MD Attending Physician: Willie ALEX MD PCP: TINO BOWEN MD Discharge Diagnosis: Gastro-esophageal reflux disease with esophagitis, without bleeding; Hiatal hernia with gastroesophageal reflux disease and esophagitis Comment: PATIENT EDUCATION INFORMATION Instructions: Medication Leaflets: Follow up: With: Address: When: Willie LAEX [address], [address], [place] [id number] Business (1) Within 1 to 2 weeks Type Location Start Finish State CT Abdomen/Pelvis Combo (FT) FT.CAT SCAN 03/13/2024 11:00 AM 03/13/2024 11:45 AM Confirmed MEDICATION LIST New Medications [facility], [address] [place] [phone], [phone] pantoprazole (Protonix 40 mg Tab-DR) 1 Tablets By Mouth every day. Refills: 1. Medications to Continue with No Changes Other Medications allopurinol (allopurinol 300 mg Tab) 1 Tablets By Mouth every day. alprazolam (alprazolam 0.5 mg Tab) 1 Tablets By Mouth 3 times a day as needed for anxiety. etonogestrel (Nexplanon) levothyroxine (levothyroxine 75 mcg (0.075 mg) Tab) 1 Tablets By Mouth every day. phentermine (Adipex-P 37.5 mg Tab) 1 Tablets By Mouth every day. sertraline (Zoloft 25 mg Tab) 1 Tablets By Mouth every day. Comment: Bharat [facility] Main OR PACU II Recordon Main OR PACU II Record Main OR PACU II R ecord PACU Phase II Document Type FT Summary Primary Physician: Willie ALEX MD Finalized Date/Time: 03/08/24 12:50:31 Pt. Name: THORARMANDO/Sex: 2000 Female Med Rec #: [id number] Physician: Willie ALEX MD Financial #: [id number] Pt. Type: O Room/Bed: / Admit/Disch: 03/08/24 07:34:25 - Institution: Case Times PACU II FT Pre-Care Text: Identifies barriers to communication and implements measures to provide psychological support and determines knowledge level Develops individualized plan of care, and ensures continuity of care Maintains patient's dignity and privacy, and maintains patient confidentiality Identifies and reports philosophical, cultural, and spiritual beliefs and values Identifies individual values and wishes concerning care administers prescribed antibiotic therapy and immunizing agents as ordered, Evaluates postoperative tissue perfusion Implements thermoregulation measures, and monitors body temperature Evaluates postoperative respiratory status Evaluates postoperative cardiac status Evaluates postoperative neurological status Assesses pain control, collaborated in initiating patient-controlled analgesia and implements alternative methods of pain control Verifies allergies, administers prescribed medications and solutions, evaluates response to medications Entry 1 In PACU II 03/08/24 09:06:00 Discharge from PACU 03/08/24 09:40:00 II Outcomes Met? Yes Last Modified By: Amanda Snell RN 03/08/24 12:50:25 Post-Care Text: The patient demonstrates knowledge of the expected response to the operative or invasive procedure The patient's care is consistent with the individualized perioperative plan of care The patient's right to privacy is maintained The patient's value system, lifestyle, ethnicity, and culture are considered, respected, and incorporated into the perioperative plan of care The patient participates in decisions affecting his or her perioperative plan of care. The patient is free from signs and symptoms of infection The patient has wound/tissue perfusion consistent with or improved from baseline levels established preoperatively The patient is at or returning to normothermia at the conclusion of the immediate postoperative period The patient's respiratory function is consistent with or improved from baseline levels established preoperatively The patient's cardiovascular status is consistent with or improved from baseline levels established preoperatively The patient's neurological status is consistent with or improved from baseline levels established preoperatively The patient demonstrates and/or reports adequate pain control throughout the perioperative period The patient received appropriate medication(s), safely administered during the perioperative period Finalized By: Amanda Snell RN Document Signatures Signed By: Amanda Snell RN 03/08/24 12:[address] [facility] Main OR Preoperative Recordo n 03-08-2024 Main OR Preoperative Record Main OR Preoperative Record Holding Area Document Type FT Summary Primary Physician: Willie ALEX MD Finalized Date/Time: 03/08/24 07:53:08 Pt. Name: ARMANDO MCRAE Norbert RodriguezB./Sex: 2000 Female Med Rec #: [id number] Physician: Willie ALEX MD Financial #: [id number] Pt. Type: O Room/Bed: / Admit/Disch: 03/08/24 07:34:25 - Institution: Case Times Holding FT Pre-Care Text: Verifies consent for planned procedure, identifies individual values and wishes concerning care, includes family members in perioperative teaching Secures patient's records' belongings, and valuables, maintains patient's dignity and privacy, and maintains patient confidentiality Entry 1 In Holding 03/08/24 07:43:00 Outcomes Met? Yes Last Modified By: Honey Garcia RN 03/08/24 07:52:08 Post-Care Text: The patient participates in decisions affecting his or her perioperative plan of care The patient's right to privacy is maintained Surgery Checklist FT Entry 1 Patient Birthday, ID Band Procedure Blood Consent, Surgical Identification: Check, Patient Verification: Consent, With Family Participation NPO after Midnight: Yes Personal Items: Jewelry Personal Items tounge ring Limitations: no Comment: Complaints of Pain: No Pain Comment: no Operative Site n/a Marked By: n/a Marking: Availability Equipment Verified: Does Patient Smoke No Patient states Yes Comment - Adult Brother postop adult Supervision supervision available Case Cancelled in No Holding Area see comments below for reason Last Modified By: Honey Garcia RN 03/08/24 07:53:06 Finalized By: Honey Garcia RN Document Signatures Signed By: Honey Garcia RN 03/08/24 07:[address] [facility] Outpatient Surgery Discharge Instructionon 03-08-2024 Outpatient Surgery Discharge Instruction Outpatient Surgery Discharge Instruction [place] [id number] Patient Discharge Instructions PERSON INFORMATION Name: ARMANDO MCRAE Date of : 2000 Current Date: 03/08/2024 09:07:37 PHYSICIANS Admitting Physician: Willie ALEX MD Discharge Diagnosis: Gastro-esophageal reflux disease with esophagitis, without bleeding; Hiatal hernia with gastroesophageal reflux disease and esophagitis KALLIEGISEL ARMANDO Tuossaint has been given the following list of follow-up instructions, prescriptions, and patient education materials: PATIENT FOLLOW-UP INFORMATION Diet: Regular Discharge Activity: Resume normal activities in 24 hours, Arrange for a responsible adult supervision for 24 hours Discharge Restrictions: No driving for 24 hrs, Do not operate machinery or tools, Do not make important decisions for 24 hours, Do not drink alcoholic beverages for 24 hours Call Your Doctor For: Persistent or heavy bleeding, Temperature above 101.5 degrees, Redness, swelling, or pus at operative site, Severe pain at the operative site, Persistent vomiting IF UNABLE TO CONTACT YOUR PHYSICIAN AND YOU FEEL IT IS AN EMERGENCY, GO TO THE NEAREST EMERGENCY ROOM OR CALL 911 I, ARMANDO MCRAE, have received the attached patient education materials/instructions and have verbalized understanding: May we do a follow up call? Yes No I was present when discharge instructions were given Patient Signature Date Clinican/Nurse Signature Date Follow up: With: Address: When: Willie Lundberg, [address], [facility] [address] [place] [address] Business (1) Within 1 to 2 weeks Type Location Start Finish State CT Abdomen/Pelvis Combo (FT) FT.CAT SCAN 03/13/2024 11:00 AM 03/13/2024 11:45 AM Confirmed Pharmacy Information: You may receive a survey from [facility] asking you to rate your care experience. Your feedback is important and will help us understand what we do well and how we can improve the quality of care we provide to you, your loved ones and our community. It?s an honor to serve you. Thank you for choosing [facility] HERE ARE THE MEDICATION CHANGES THAT OCCURRED DURING YOUR HOSPITAL STAY New Medications [facility], [address] [place] [id number], [phone] pantoprazole (Protonix 40 mg Tab-DR) 1 Tablets By Mouth every day. Refills: 1. Medications to Continue with No Changes Other Medications allopurinol (allopurinol 300 mg Tab) 1 Tablets By Mouth every day. alprazolam (alprazolam 0.5 mg Tab) 1 Tablets By Mouth 3 times a day as needed for anxiety. etonogestrel (Nexplanon) levothyroxine (levothyroxine 75 mcg (0.075 mg) Tab) 1 Tablets By Mouth every day. phentermine (Adipex-P 37.5 mg Tab) 1 Tablets By Mouth every day. sertraline (Zoloft 25 mg Tab) 1 Tablets By Mouth every day. PATIENT EDUCATION INFORMATION Instructions: Medication Leaflets: Bharat [facility] US PELVISon 01-26-2024 US PELVIS EXAM: Pelvic Ultraso und, Transabdominal. REASON FOR EXAM: Nexplanon. COMPARISON: None. TECHNIQUE: Grayscale and color Doppler ultrasound of the pelvis performed with spectral analysis. Transabdominal scanning. FINDINGS: The bladder is normal in configuration. Uterus/Endometrium: The uterus and endometrium are not remarkable. Endometrium is normal in thickness. Cervix: Normal. Ovaries: Normal in size with normal vascularity by Doppler US. Peritoneum: No free fluid visualized. Measurements: Uterus: 9.8 x 4.1 x 4.1 cm Endometrium: 1.1 cm Right Ovary: 4.2 x 3.1 x 1.6 cm Left Ovary: 3.0 x 2.3 x 2.2 cm IMPRESSION: Normal Pelvic Ultrasound *This report is generated using voice recognition reporting ([employer]). On occasion [employer] erroneously drops words from the report or replaces the spoken word with similar sounding words. Please call with any questions/concerns regarding this report.* Dictated and transcribed 01/26/2024/ This report has been electronically signed and approved by the interpreting radiologist. Electronically Signed Jose Serrano D.O. 2024-01-29 09:58:21 Normal Not Available Comment on above: Order Comment: Megan gould's last menstrual period was 01/05/2024. 5' 5 247 lb US RUQon 01-19-2024 US RUQ EXAM: Abdominal Ultrasound, Limited. REASON FOR EXAM: Epigastric pain. REASON FOR EXAM: No comparison. TECHNIQUE: Real-time ultrasonographic evaluation of the abdomen performed with color flow Doppler and Doppler spectral analysis. FINDINGS: Liver: The liver is of appropriate size. Increased hepatic parenchymal echotexture. There is normal hepatopetal blood flow in the portal vein by Doppler spectral analysis. Biliary tract: The gallbladder is present. It contains dependent stones measuring up to 1.1 cm. Negative for gallbladder wall thickening and no evidence of pericholecystic fluid. The common bile duct diameter is normal and there is no evidence of intrahepatic or extrahepatic biliary dilatation. Pancreas: What is seen of the pancreas is unremarkable. The tail is obscured by overlying bowel gas. Right kidney: Renal parenchymal echotexture normal. Negative for hydronephrosis, retroperitoneal mass, fluid collection or stone. Peritoneal cavity: Negative for ascites. Measurements: CBD: 0.59 cm GB wall: 0.15 cm Right kidney: 10.9 cm Liver: 17.6 cm IMPRESSION: 1. Cholelithiasis. 2. Hepatic steatosis. 3. No significant biliary ductal dilatation. *This report is generated using voice recognition reporting ([employer]). On occasion [employer] erroneously drops words from the report or replaces the spoken word with similar sounding words. Please call with any questions/concerns regarding this report.* Dictated and transcribed 01/19/2024/ This report has been electronically signed and approved by the interpreting radiologist. Electronically Signed Ava Brennan M.D. 2024-01-19 11:24:23 Normal Not Available XR shoulder RT min 2V*on XR shoulder RT min 2V* [facility] Matter and Form Other XR shoulder RT min 2V* [facility] Main [facility] Matter and Form Other XR shoulder RT min 2V* [address] [place] [address] Matter and Form Other XR shoulder RT min 2V* [place] [address] [facility] Matter and Form Other XR shoulder RT min 2V* XRay Report N [facility] Matter and Form Other XR shoulder RT min 2V* Signed [facility] Other XR shoulder RT min 2V* Patient: Armando Mcrae MR#: [id number] [facility] Matter and Form Other XR shoulder RT min 2V* 300 No rt [employer] Other XR shoulder RT min 2V* : 2000 Acct:[id number] VOYAA Other XR shoulder RT min 2V* Age/Sex: 22 / F A DM Date: 10/11/22 VOYAA Other XR shoulder RT min 2V* Loc: XDUCLY Room: Type: [facility] VOYAA Other XR shoulder RT min 2V* Attending Dr: Angy HERNANDEZ VOYAA Other XR shoulder RT min 2V* Copies to: [facility] VOYAA Other XR shoulder RT min 2V* Ordering Provider : [facility] VOYAA Other XR shoulder RT min 2V* Date of Service: 10/11/22 VOYAA Other XR shoulder RT min 2V* XR/XR shoulder RT min 2V*: Acute pain of right shoulder VOYAA Other XR shoulder RT min 2V* XR shoulder RT mi n 2V* 10/11/2022 4:18 PM VOYAA Other XR shoulder RT min 2V* SIGNS AND SYMPTOM S: Right shoulder pain VOYAA Other XR shoulder RT min 2V* PROTOCOL: Frontal , Grashey, and scapular Y views of the right shoulder VOYAA Other XR shoulder RT min 2V* COMPARISON: None VOYAA Other XR shoulder RT min 2V* FINDINGS: No rt [employer] Other XR shoulder RT min 2V* The acromioclavic ular joint and glenohumeral joint are preserved. There is no evidence of fracture VOYAA Other XR shoulder RT min 2V* or dislocation. T he visualized right hemithorax is grossly intact. VOYAA Other XR shoulder RT min 2V* 4 XR/XR shoulder RT min 2V* VOYAA Other XR shoulder RT min 2V* IMPRESSION: N [employer] Other XR shoulder RT min 2V* No acute bony inj ury or significant degenerative change. VOYAA Other XR shoulder RT min 2V* Impression dictat ed by: Ava Haro M.D.10/11/2022 4:39 PM VOYAA Other XR shoulder RT min 2V* Dictation Locatio n: RADIO-PC-13 VOYAA Other XR shoulder RT min 2V* Transcribed By: Medina LIM 10/11/22 163 VOYAA Other XR shoulder RT min 2V* Dictated By: Ava Haro II, MD 10/11/22 [facility] VOYAA Other XR shoulder RT min 2V* Signed By: No rt [employer] Other XR shoulder RT min 2V* 10/11/22 1639 VOYAA Other INSULINon 08-09-2022 Insulin 19.0 uIU/mL Normal 2.6-24.9 [facility] Comment on above: Performed By: #### I NSULIN ####[facility] [id number] [place], [place] [address]JmDr. Nestor Almonte CBC AUTO DIFFon 08-08-2022 BASO # 0.1 103/ul Normal 0.0-0.1 [facility] Comment on above: Performed By: #### C BC #### [facility] [address] [place], [place] [address] Dr. Nestor Almonte Basophils/100 WBC (Bld) 0.5 % Normal 0.2-2.0 [facility] Comment on above: Performed By: #### C BC #### [facility] [address] [place] [address] Dr. Nestor Almonte EO # 0.1 103/ul Normal 0.0-0.7 [facility] Comment on above: Performed By: #### C BC #### [facility] [address] [place] [address] Dr. Nestor Almonte Eosinophils/100 WBC (Bld) 1.3 % Normal 0.9-7.0 [facility] Comment on above: Performed By: #### C BC #### [facility] [address] [place] [address] Dr. Nestor Almonte Erythrocyte distribution width (RBC) [Ratio] 13.6 % Normal 11.0-15.0 [facility] Comment on above: Performed By: #### C BC #### [facility] [address] [place] [address] Dr. Nestor Almonte Hematocrit (Bld) [Volume fraction] 40.4 % Normal 36.0-48.0 [facility] Comment on above: Performed By: #### C BC #### [facility] [address] [place] [address] Dr. Nestor Almonte Hemoglobin (Bld) [Mass/Vol] 13.3 g/dL Normal 12.0-16.0 [facility] Comment on above: Performed By: #### C BC #### [facility] [address] [place] [address] Dr. Nestor Almonte IG # 0.02 10e3/ul Normal 0.00-0.03 [facility] Comment on above: Performed By: #### C BC #### [facility] [address] [place] [address] Dr. Nestor Almonte IG % 0.2 % Normal 0.0-0.5 [facility] Comment on above: Performed By: #### C BC #### [facility] [address] [place] [address] Dr. Nestor Almonte LYMPH # 3.1 103/ul Normal 1.2-3.8 [facility] Comment on above: Performed By: #### C BC #### [facility] [address] [place] [address] Dr. Nestor Almonte Lymphocytes/100 WBC (Bld) 31.9 % Normal 20.5-60.0 [facility] Comment on above: Performed By: #### C BC #### [facility] [address] [place] [address] Dr. Nestor Almonte MANUAL DIFF REQ NO Normal [facility] Comment on above: Performed By: #### C BC #### [facility] [address] [place] [address] Dr. Nestor Almonte MCH (RBC) [Entitic mass] 26.7 pg Normal 26.7-34.0 [facility] Comment on above: Performed By: #### C BC #### [facility] [address] [place] [address] Dr. Nestor Almonte MCHC (RBC) [Mass/Vol] 32.9 g/dL Normal 29.9-35.2 [facility] Comment on above: Performed By: #### C BC #### [facility] [address] [place] [address] Dr. Nestor Almonte MCV (RBC) [Entitic vol] 81.0 fL Normal 81.0-99.0 [facility] Comment on above: Performed By: #### C BC #### [facility] [address] [place] [address] Dr. Nestor Almonte MONO # 0.6 103/ul Normal 0.3-0.8 [facility] Comment on above: Performed By: #### C BC #### [facility] [address] [place] [address] Dr. Nestor Almonte Monocytes/100 WBC (Bld) 6.7 % Normal 1.7-12.0 [facility] Comment on above: Performed By: #### C BC #### [facility] [address] [place] [address] Dr. Nestor Almonte NEUT # 5.7 103/ul Normal 1.4-6.5 [facility] Comment on above: Performed By: #### C BC #### [facility] [address] [place] [address] Dr. Nestor Almonte Neutrophils/100 WBC (Bld) 59.4 % Normal 43.0-75.0 [facility] Comment on above: Performed By: #### C BC #### [facility] [address] [place] [address] Dr. Nestor Almonte Platelet mean volume (Bld) [Entitic vol] 9.4 fL Critically low 9.5-13.5 [facility] Comment on above: Performed By: #### C BC #### [facility] [address] [place] [address] Dr. Nestor Almonte PLT 333 103/ul Normal 150-450 [facility] Comment on above: Performed By: #### C BC #### [facility] [address] [place] [address] Dr. Nestor Almonte RBC 4.99 106/ul Normal 4.20-5.40 [facility] Comment on above: Performed By: #### C BC #### [facility] [address] [place] [address] Dr. Nestor Almonte WBC 9.6 103/ul Normal 4.0-11.0 [facility] Comment on above: Performed By: #### C BC #### [facility] [address] [place] [address] Dr. Nestor Almonte GLYCOHEMOGLOBIN A1Con 2022 ADA RECOMMENDATION SEE BELOW Normal [facility] Comment on above: Result Comment: ADA RECOMMENDED LIMIT 4.0 - 6.0 ADA THERAPEUTIC TARGET < 7.0 ACTION SUGGESTED > 7.0 Performed By: #### A 1C #### [facility] [address] [place] [address] Dr. Nestor Almonte Glucose [Mass/Vol] 117 mg/dL Normal [facility] Comment on above: Performed By: #### A 1C #### [facility] [address] [place] [address] Dr. Nestor Almonte HbA1c (Bld) [Mass fraction] 5.7 % Normal 4.5-6.2 [facility] Comment on above: Performed By: #### A 1C #### [facility] [address] [place] [address] Dr. Nestor Almonte LIPID PROFILEon 08-08-2022 CHOL-HDL RATIO NORM SEE BELOW Normal [facility] Comment on above: Result Comment: 3.3 - 4.4 LOW RISK 4.4 - 7.1 AVERAGE RISK 7.1 - 11.0 MODERATE RISK >11.0 HIGH RISK Performed By: #### B MP, LIPID, TSH, LIVER #### [facility] [address] [place] [address] Dr. Nestor Almonte Cholesterol [Mass/Vol] 155 mg/dL Normal <=200 Th [facility] Comment on above: Performed By: #### B MP, LIPID, TSH, LIVER #### [facility] [address] [place] [address] Dr. Nestor Almonte Cholesterol in HDL [Mass/Vol] 35 mg/dL Critically low 40-60 [facility] Comment on above: Performed By: #### B MP, LIPID, TSH, LIVER #### [facility] [address] [place] [address] Dr. Nestor Almonte Cholesterol in LDL [Mass/Vol] 92.2 mg/dL Normal [facility] Comment on above: Performed By: #### B MP, LIPID, TSH, LIVER #### [facility] [address] [place] [address] Dr. Nestor Almonte Cholesterol.total/Pascale sterol in HDL [Mass ratio] 4.4 {ratio} Normal [facility] Comment on above: Performed By: #### B MP, LIPID, TSH, LIVER #### [facility] [address] [place] [address] Dr. Nestor Almonte HDL NORMAL > or = 60 mg/dl - LO W CARDIOVASCULAR RISK <40 mg/dl - HIGH CARDIOVASCULAR RISK Normal [facility] Comment on above: Performed By: #### B MP, LIPID, TSH, LIVER #### [facility] [address] [place] [address] Dr. Nestor Almonte LDL CALC NORMAL SEE BELOW Normal [facility] Comment on above: Result Comment: <100 mg/dl OPTIMAL 100 - 129 mg/dl NEAR OR ABOVE OPTIMAL 130 - 159 mg/dl BORDERLINE HIGH 160 - 189 mg/dl HIGH >190 mg/dl VERY HIGH Performed By: #### B MP, LIPID, TSH, LIVER #### [facility] [address] [place] [address] [address] Nestor Almonte Triglyceride [Mass/Vol] 139 mg/dL Normal <=150 T [facility] Comment on above: Performed By: #### B MP, LIPID, TSH, LIVER #### [facility] [address] [place] [address] [address] Nestor Almonte VLDL CALC 27.8 mg/dL Normal [facility] Comment on above: Performed By: #### B MP, LIPID, TSH, LIVER #### [facility] [address] [place] [address] Dr. Nestor Almonte LIVER PROFILEon 08-08-2022 Albumin [Mass/Vol] 3.9 g/dL Normal 3.4-5.0 [facility] Comment on above: Performed By: #### B MP, LIPID, TSH, LIVER #### [facility] [address] [place] [address] [address] Nestor Almonte Albumin/Globulin [Mass ratio] 1.1 {ratio} Normal [facility] Comment on above: Performed By: #### B MP, LIPID, TSH, LIVER #### [facility] [address] [place] [address] [address] Nestor Almonte ALP [Catalytic activity/Vol] 66 U/L Normal 46-116 [facility] Comment on above: Performed By: #### B MP, LIPID, TSH, LIVER #### [facility] [address] [place] [address] [address] Nestor Almonte ALT [Catalytic activity/Vol] 55 U/L Normal 14-59 [facility] Comment on above: Performed By: #### B MP, LIPID, TSH, LIVER #### [facility] [address] [place] [address] [address] Nestor Almonte AST [Catalytic activity/Vol] 36 U/L Normal 15-37 [facility] Comment on above: Performed By: #### B MP, LIPID, TSH, LIVER #### [facility] [address] [place] [address] Dr. Nestor Almonte BILI, CONJUGATED 0.1 mg/dL Normal 0.0-0.2 [facility] Comment on above: Performed By: #### B MP, LIPID, TSH, LIVER #### [facility] [address] [place] [address] Dr. Nestor Almonte Bilirubin [Mass/Vol] 0.5 mg/dL Normal 0.2-1.0 [facility] Comment on above: Performed By: #### B MP, LIPID, TSH, LIVER #### [facility] [address] [place] [address] Dr. Nestor Almonte Globulin (S) [Mass/Vol] 3.5 g/dL Normal T [facility] Comment on above: Performed By: #### B MP, LIPID, TSH, LIVER #### [facility] [address] [place] [address] Dr. Nestor Almonte Protein [Mass/Vol] 7.4 g/dL Normal 6.4-8.2 [facility] Comment on above: Performed By: #### B MP, LIPID, TSH, LIVER #### [facility] [address] [place] [address] Dr. Nestor Almonte PROF CHEM 8 (BAS METB)on Anion gap [Moles/Vol] 12.1 mmol/L Normal [facility] Comment on above: Performed By: #### B MP, LIPID, TSH, LIVER #### [facility] [address] [place] [address] Dr. Nestor Almonte Calcium [Mass/Vol] 9.1 mg/dL Normal 8.5-10.1 [facility] Comment on above: Performed By: #### B MP, LIPID, TSH, LIVER #### [facility] [address] [place] [address] Dr. Nestor Almonte Chloride [Moles/Vol] 105 mmol/L Normal 98-107 [facility] Comment on above: Performed By: #### B MP, LIPID, TSH, LIVER #### [facility] [address] [address] [address] Nestor Almonte CO2 [Moles/Vol] 27.7 mmol/L Normal 21.0-32.0 [facility] Comment on above: Performed By: #### B MP, LIPID, TSH, LIVER #### [facility] [address] [address] [address] Nestor Almonte Creatinine [Mass/Vol] 0.68 mg/dL Normal 0.55-1.02 [facility] Comment on above: Performed By: #### B MP, LIPID, TSH, LIVER #### [facility] [address] [address] [address] Nestor Almonte EGFR-AF HONDURAN >60 Normal >=60 [facility] Comment on above: Performed By: #### B MP, LIPID, TSH, LIVER #### [facility] [address] [place] [address] Dr. Nestor Almonte EGFR-NON AF HONDURAN >60 Normal >=60 [facility] Comment on above: Performed By: #### B MP, LIPID, TSH, LIVER #### [facility] [address] [address] [address] Nestor Almonte Glucose [Mass/Vol] 92 mg/dL Normal 74-106 [facility] Comment on above: Performed By: #### B MP, LIPID, TSH, LIVER #### [facility] [address] [address] [address] Nestor Almonte Potassium [Moles/Vol] 3.8 mmol/L Normal 3.5-5.1 [facility] Comment on above: Performed By: #### B MP, LIPID, TSH, LIVER #### [facility] [address] [place] [address] Dr. Nestor Almonte Sodium [Moles/Vol] 141 mmol/L Normal 136-145 [facility] Comment on above: Performed By: #### B MP, LIPID, TSH, LIVER #### [facility] [address] [address] [address] Nestor Almonte Urea nitrogen [Mass/Vol] 5.0 mg/dL Critically low 7.0-18.0 [facility] Comment on above: Performed By: #### B MP, LIPID, TSH, LIVER #### [facility] [address] [place] [address] Dr. Nestor Almonte Urea nitrogen/Creatinine [Mass ratio] 7.4 mg/mg Normal [facility] Comment on above: Performed By: #### B MP, LIPID, TSH, LIVER #### [facility] [address] [place] [address] Dr. Nestor Almonte TSHon 08-08-2022 TSH 1.959 uIU/mL Normal 0.358-3.74 0 [facility] Comment on above: Performed By: #### B MP, LIPID, TSH, LIVER #### [facility] [address] [place] [address] Dr. Nestor Almonte CARDIAC AVA 3-6on 2 CK [Catalytic activity/Vol] 150 U/L Normal 26-192 [facility] Comment on above: Performed By: #### C MREP #### [facility] [address] [place] [address] Dr. Nestor Almonte CK.MB [Mass/Vol] ng/mL Normal <=3.60 [facility] Comment on above: Performed By: #### C MREP #### [facility] [address] [place] [address] Dr. Nestor Almonte HSTROP <4.0 Normal 4.0-51.3 [facility] Comment on above: Result Comment: CUT- OFF POINTS HAVE BEEN ESTABLISHED BASED ON THE FOURTH UNIVERSAL DEFINITIONS OF MYOCARDIAL INFARCTION. THE UPPER REFERENCE LIMIT (URL) OF TROPONIN, DEFINED THE 99TH PERCENTILE OF cTnI DISTRIBUTION IN A REFERENCE POPULATION, HAS BEEN CONFIRMED THE DECISION THRESHOLD FOR OR DIAGNOSIS. Performed By: #### C MREP #### [facility] [address] [place] [address] Dr. Nestor Almonte CARDIAC AVA ADMITon 022 CK [Catalytic activity/Vol] 165 U/L Normal 26-192 [facility] Comment on above: Performed By: #### C MADM ####[facility] [id number] [id number] Almonte CK.MB [Mass/Vol] ng/mL Normal <=3.60 [facility] Comment on above: Performed By: #### C MADM ####[facility] [id number] [address]Dr. Nestor Almonte HSTROP 4.1 pg/mL Normal 4.0-51.3 [facility] Comment on above: Result Comment: CUT- OFF POINTS HAVE BEEN ESTABLISHED BASED ON THE FOURTH UNIVERSAL DEFINITIONS OF MYOCARDIAL INFARCTION. THE UPPER REFERENCE LIMIT (URL) OF TROPONIN, DEFINED THE 99TH PERCENTILE OF cTnI DISTRIBUTION IN A REFERENCE POPULATION, HAS BEEN CONFIRMED THE DECISION THRESHOLD FOR OR DIAGNOSIS. Performed By: #### C MADM ####[facility] [id number] [address]DrNenita Almonte SHREYA 43 ng/mL Normal 9-82 [facility] Comment on above: Performed By: #### C MADM ####[facility] [id number] [address]Dr. Nestor Almonte CBC AUTO DIFFon 05-09-2022 BASO # 0.1 103/ul Normal 0.0-0.1 [facility] Comment on above: Performed By: #### C BC #### [facility] [address] [address] [address] Nestor Almonte Basophils/100 WBC (Bld) 0.6 % Normal 0.2-2.0 [facility] Comment on above: Performed By: #### C BC #### [facility] [address] [address] [address] Nestor Almonte EO # 0.1 103/ul Normal 0.0-0.7 [facility] Comment on above: Performed By: #### C BC #### [facility] [address] [address] [address] Nestor Almonte Eosinophils/100 WBC (Bld) 0.7 % Critically low 0.9-7.0 [facility] Comment on above: Performed By: #### C BC #### [facility] [address] [place] [address] Dr. Nestor Almonte Erythrocyte distribution width (RBC) [Ratio] 13.2 % Normal 11.0-15.0 [facility] Comment on above: Performed By: #### C BC #### [facility] [address] [place] [address] Dr. Nestor Almonte Hematocrit (Bld) [Volume fraction] 41.1 % Normal 36.0-48.0 [facility] Comment on above: Performed By: #### C BC #### [facility] [address] [place] [address] Dr. Nestor Almonte Hemoglobin (Bld) [Mass/Vol] 13.5 g/dL Normal 12.0-16.0 [facility] Comment on above: Performed By: #### C BC #### [facility] [address] [place] [address] Dr. Nestor Almonte IG # 0.02 10e3/ul Normal 0.00-0.03 [facility] Comment on above: Performed By: #### C BC #### [facility] [address] [place] [address] Dr. Nestor Almonte IG % 0.2 % Normal 0.0-0.5 [facility] Comment on above: Performed By: #### C BC #### [facility] [address] [place] [address] Dr. Nestor Almonte LYMPH # 1.0 103/ul Critically low 1.2-3.8 [facility] Comment on above: Performed By: #### C BC #### [facility] [address] [place] [address] Dr. Nestor Almonte Lymphocytes/100 WBC (Bld) 12.6 % Critically low 20.5-60.0 [facility] Comment on above: Performed By: #### C BC #### [facility] [address] [place] [address] Dr. Nestor Almonte MANUAL DIFF REQ NO Normal [facility] Comment on above: Performed By: #### C BC #### [facility] [address] [place] [address] Dr. Nestor Almonte MCH (RBC) [Entitic mass] 26.8 pg Normal 26.7-34.0 [facility] Comment on above: Performed By: #### C BC #### [facility] [address] [place] [address] Dr. Nestor Almonte MCHC (RBC) [Mass/Vol] 32.8 g/dL Normal 29.9-35.2 [facility] Comment on above: Performed By: #### C BC #### [facility] [address] [place] [address] Dr. Nestor Almonte MCV (RBC) [Entitic vol] 81.7 fL Normal 81.0-99.0 [facility] Comment on above: Performed By: #### C BC #### [facility] [address] [place] [address] Dr. Nestor Almonte MONO # 0.9 103/ul Critically high 0.3-0.8 [facility] Comment on above: Performed By: #### C BC #### [facility] [address] [place] [address] Dr. Nestor Almonte Monocytes/100 WBC (Bld) 11.4 % Normal 1.7-12.0 [facility] Comment on above: Performed By: #### C BC #### [facility] [address] [place] [address] Dr. Nestor Almonte NEUT # 6.0 103/ul Normal 1.4-6.5 [facility] Comment on above: Performed By: #### C BC #### [facility] [address] [place] [address] Dr. Nestor Almonte Neutrophils/100 WBC (Bld) 74.5 % Normal 43.0-75.0 [facility] Comment on above: Performed By: #### C BC #### [facility] [address] [place] [address] Dr. Nestor Almonte Platelet mean volume (Bld) [Entitic vol] 9.5 fL Normal 9.5-13.5 [facility] Comment on above: Performed By: #### C BC #### [facility] [address] [place] [address] Dr. Nestor Almonte PLT 271 103/ul Normal 150-450 [facility] Comment on above: Performed By: #### C BC #### [facility] [address] [address] [address] Nestor Almonte RBC 5.03 106/ul Normal 4.20-5.40 [facility] Comment on above: Performed By: #### C BC #### [facility] [address] [id number] [address] Nestor Almonte WBC 8.1 103/ul Normal 4.0-11.0 [facility] Comment on above: Performed By: #### C BC #### [facility] [address] [address] [address] Nestor Almonte Covid-19 PCR ([facility])on SARS-CoV-2 (COVID-19) RNA JORGITO+probe Ql (Unsp spec) Not detected Normal NOT DETECTED [facility] Comment on above: Result Comment: When diagnostic testing is negative, the possibility of a false negative should be considered in the context of a patient's recent exposures and the presence of clinical signs and symptoms consistent with SARS-CoV-2. This test is not yet approved or cleared by the [place] FDA. When there are no FDA-approved or cleared tests available, and other criteria are met, FDA can make tests available under an emergency access mechanism called an Emergency Use Authorization (EUA). The EUA for this test is supported by the [employer] of Health and Human Service's declaration that circumstances exist to justify the emergency use of in vitro diagnostics for the detection and/or diagnosis of the virus that causes COVID-19. This EUA will remain in effect for the duration of the COVID-19 declaration justifying emergency of IVDs, unless it is terminated or revoked by the FDA (after which the test may no longer be used). Performed By: #### C VDTBH ####[facility] [id number] [id number]. Nestor Almonte INFLUENZA A AND B AGon 05-09 INFLUANEGH SEE BELOW Normal [facility] Comment on above: Result Comment: Nega tive for Flu A protein angiten. Infection due to Flu A cannot be ruled out. Flu A angiten in the sample may be below the detection limit of the test. Performed By: #### I NFLUAB ####[facility] [id number] [address]Dr. Nestor Almonte INFLUBNEGH SEE BELOW Normal [facility] Comment on above: Result Comment: Nega tive for Flu B protein antigen. Infection due to Flu B cannot be ruled out. Flu B antigen in the sample may be below the detection limit of the test. Performed By: #### I NFLUAB ####[facility] [id number] [address]Dr. Nestor Almonte INFLUENZA A AG Negative Normal NEGATIVE SEE COMMENT [facility] Comment on above: Performed By: #### I NFLUAB ####[facility] [id number] [place], [place] [address]Dr. Nestor Almonte INFLUENZA B AG Negative Normal NEGATIVE SEE COMMENT [facility] Comment on above: Performed By: #### I NFLUAB ####[facility] [address] [place], [place] [address]Dr. Nestor Almonte INTERNAL CONTROLS Within Normal Limits Normal Wi thin Normal Limits [facility] Comment on above: Performed By: #### I NFLUAB ####[facility] [address] [place], [place] [address]Dr. Nestor Almonte PROF CHEM 8 (BAS METB)on Anion gap [Moles/Vol] 13.3 mmol/L Normal [facility] Comment on above: Performed By: #### B MP #### [facility] [address] [place] [address] Dr. Nestor Almonte Calcium [Mass/Vol] 9.0 mg/dL Normal 8.5-10.1 [facility] Comment on above: Performed By: #### B MP #### [facility] [address] [place] [address] Dr. Nestor Almonte Chloride [Moles/Vol] 100 mmol/L Normal 98-107 [facility] Comment on above: Performed By: #### B MP #### [facility] [address] [address] [address] Nestor Almonte CO2 [Moles/Vol] 25.4 mmol/L Normal 21.0-32.0 [facility] Comment on above: Performed By: #### B MP #### [facility] [address] [address] [address] Nestor Almonte Creatinine [Mass/Vol] 0.76 mg/dL Normal 0.55-1.02 [facility] Comment on above: Performed By: #### B MP #### [facility] [address] [address] [address] Nestor Almonte EGFR-AF HONDURAN >60 Normal >=60 [facility] Comment on above: Performed By: #### B MP #### [facility] [address] [place] [address] Dr. Nestor Almonte EGFR-NON AF HONDURAN >60 Normal >=60 [facility] Comment on above: Performed By: #### B MP #### [facility] [address] [address] [address] Nestor Almonte Glucose [Mass/Vol] 103 mg/dL Normal 74-106 [facility] Comment on above: Performed By: #### B MP #### [facility] [address] [address] [address] Nestor Almonte Potassium [Moles/Vol] 3.7 mmol/L Normal 3.5-5.1 [facility] Comment on above: Performed By: #### B MP #### [facility] [address] [address] [address] Nestor Almonte Sodium [Moles/Vol] 135 mmol/L Critically low 136-145 [facility] Comment on above: Performed By: #### B MP #### [facility] [address] [place] [address] Dr. Nestor Almonte Urea nitrogen [Mass/Vol] 10.0 mg/dL Normal 7.0-18.0 [facility] Comment on above: Performed By: #### B MP #### [facility] [address] [place] [address] Dr. Nestor Almonte Urea nitrogen/Creatinine [Mass ratio] 13.2 mg/mg Normal [facility] Comment on above: Performed By: #### B #### [facility] [address] [address] [address] Nestor Almonte XR CHEST 1 Von 05-09-2022 XR CHEST 1 V EXAM: XR CHEST 1 V 05/09/2022 12:38 AM EST OH001 CLINICAL STATEMENT: COUGH COMPARISON: No prior studies are available at the time of dictation. TECHNIQUE: Single AP radiograph of the chest is submitted. FINDINGS: There is no acute airspace disease. Enlarged cardiac silhouette. The costophrenic recesses are sharp. No pneumothorax. The bony elements are unremarkable. IMPRESSION: No acute airspace disease. Enlarged cardiac silhouette. FOLLOW-UP: Follow-up as clinically indicated. Electronically authenticated by: LUPIS TORREZ Date: 2022-05-09 01:17 Normal [facility] Vital Signs Date Time Vital Sign Value Performing Clinician Facility 12-25-2024 09:19-0400 Body height 161.3 cm Tino Bowen MD Work Phone: [facility] 12-25-2024 09:19-0400 Body mass index (BMI) [Ratio] 44.29 kg/m2 Tino Bowen MD Work Phone: [facility] 12-25-2024 09:19-0400 Body temperature 97.5 [degF] Tino Bowen MD Work Phone: [facility] 12-25-2024 09:19-0400 Body weight 115.21 kg Tino Bowen MD Work Phone: [facility] 12-25-2024 09:19-0400 Diastolic blood pressure 76 mm[Hg] Tino Bowen MD Work Phone: [facility] 12-25-2024 09:19-0400 Heart rate 68 /min Tino Bowen MD Work Phone: [facility] 12-25-2024 09:19-0400 Respiratory rate 20 /min Tino Bowne MD Work Phone: [facility] 12-25-2024 09:19-0400 SaO2% (BldA) [Mass fraction] 90 % Tino Bowen MD Work Phone: [facility] 12-25-2024 09:19-0400 Systolic blood pressure 128 mm[Hg] Tino Bowen MD Work Phone: [facility] 11-13-2024 08:50-0400 Body height 161.3 cm Tino Bowen MD Work Phone: [facility] 11-13-2024 08:50-0400 Body mass index (BMI) [Ratio] 44.64 kg/m2 Tino Bowen MD Work Phone: [facility] 11-13-2024 08:50-0400 Body temperature 97.81 [degF] Tino Bowen MD Work Phone: [facility] 11-13-2024 08:50-0400 Body weight 116.12 kg Tino Bowen MD Work Phone: [facility] 11-13-2024 08:50-0400 Diastolic blood pressure 92 mm[Hg] Tino Bowen MD Work Phone: [facility] 11-13-2024 08:50-0400 Heart rate 66 /min Tino Bowen MD Work Phone: [facility] 11-13-2024 08:50-0400 Respiratory rate 22 /min Tino Bowen MD Work Phone: [facility] 11-13-2024 08:50-0400 SaO2% (BldA) [Mass fraction] 99 % Tino Bowen MD Work Phone: [facility] 11-13-2024 08:50-0400 Systolic blood pressure 150 mm[Hg] Tino Bowen MD Work Phone: [facility] 08-15-2024 15:35-0400 Diastolic blood pressure 35 mm[Hg] Tino Bowen MD Work Phone: [facility] 08-15-2024 15:35-0400 Heart rate 94 /min Tino Bowen MD Work Phone: [facility] 08-15-2024 15:35-0400 Respiratory rate 16 /min Tino Bowen MD Work Phone: [facility] 08-15-2024 15:35-0400 SaO2% (BldA) [Mass fraction] 94 % Tino Bowen MD Work Phone: [facility] 08-15-2024 15:35-0400 Systolic blood pressure 104 mm[Hg] Tino Bowen MD Work Phone: [facility] 08-15-2024 14:15-0400 Body temperature 98 [degF] Tino Bowen MD Work Phone: [facility] 08-15-2024 14:15-0400 Inhaled oxygen flow rate 8 L/min Tino Bowen MD Work Phone: [facility] 08-15-2024 10:51-0400 Body height 162.56 cm Tino Bowen MD Work Phone: [facility] 08-15-2024 10:51-0400 Body weight 112.03 kg Tino Bowen MD Work Phone: [facility] 08-08-2024 09:29-0500 Body mass index (BMI) [Ratio] 43.94 kg/m2 Tino Bowen MD Work Phone: [facility] 08-08-2024 09:29-0500 Body temperature 98.1 [degF] Tino Bowen MD Work Phone: [facility] 08-08-2024 09:29-0500 Body weight 114.31 kg Tino Bowen MD Work Phone: [facility] 08-08-2024 09:29-0500 Diastolic blood pressure 82 mm[Hg] Tino Bowen MD Work Phone: [facility] 08-08-2024 09:29-0500 Heart rate 74 /min Tino Bowen MD Work Phone: [facility] 08-08-2024 09:29-0500 SaO2% (BldA) [Mass fraction] 99 % Tino Bowen MD Work Phone: [facility] 08-08-2024 09:29-0500 Systolic blood pressure 130 mm[Hg] Tino Bowen MD Work Phone: [facility] 07-24-2024 10:33-0500 Body height 161.3 cm Mark Zhang MD Work Phone: [facility] 07-24-2024 10:33-0500 Body mass index (BMI) [Ratio] 43.24 kg/m2 Mark Zhang MD Work Phone: [facility] 07-24-2024 10:33-0500 Body weight 112.49 kg Mark Zhang MD Work Phone: [facility] 07-24-2024 10:33-0500 Diastolic blood pressure 96 mm[Hg] Mark Zhang MD Work Phone: [facility] 07-24-2024 10:33-0500 Systolic blood pressure 138 mm[Hg] Mark Zhang MD Work Phone: [facility] 07-11-2024 09:30-0500 Body height 162.6 cm Tino Bowen MD Work Phone: [facility] 07-11-2024 09:30-0500 Body mass index (BMI) [Ratio] 44.11 kg/m2 Tino Bowen MD Work Phone: [facility] 07-11-2024 09:30-0500 Body temperature 99.81 [degF] Tino Bowen MD Work Phone: [facility] 07-11-2024 09:30-0500 Body weight 116.57 kg Tino Bowen MD Work Phone: [facility] 07-11-2024 09:30-0500 Diastolic blood pressure 78 mm[Hg] Tino Bowen MD Work Phone: [facility] 07-11-2024 09:30-0500 Heart rate 117 /min Tino Bowen MD Work Phone: [facility] 07-11-2024 09:30-0500 Respiratory rate 22 /min Tino Bowen MD Work Phone: [facility] 07-11-2024 09:30-0500 SaO2% (BldA) [Mass fraction] 99 % Tino Bowen MD Work Phone: [facility] 07-11-2024 09:30-0500 Systolic blood pressure 140 mm[Hg] Tino Bowen MD Work Phone: [facility] 06-10-2024 08:20-0500 Body height 165.1 cm Tino Bowen MD Work Phone: [facility] 06-10-2024 08:20-0500 Body mass index (BMI) [Ratio] 41.93 kg/m2 Tino Bowen MD Work Phone: [facility] 06-10-2024 08:20-0500 Body temperature 97.81 [degF] Tino Bowen MD Work Phone: [facility] 06-10-2024 08:20-0500 Body weight 114.31 kg Tino Bowen MD Work Phone: [facility] 06-10-2024 08:20-0500 Diastolic blood pressure 72 mm[Hg] Tino Bowen MD Work Phone: [facility] 06-10-2024 08:20-0500 Heart rate 103 /min Tino Bowen MD Work Phone: [facility] 06-10-2024 08:20-0500 Respiratory rate 20 /min Tino Bowen MD Work Phone: [facility] 06-10-2024 08:20-0500 SaO2% (BldA) [Mass fraction] 99 % Tino Bowen MD Work Phone: [facility] 06-10-2024 08:20-0500 Systolic blood pressure 126 mm[Hg] Tino Bowen MD Work Phone: [facility] 03-04-2024 10:02-0400 Body height 165.1 cm Tino Bowen MD Work Phone: [facility] 03-04-2024 10:02-0400 Body mass index (BMI) [Ratio] 41.77 kg/m2 Tino Bowen MD Work Phone: [facility] 03-04-2024 10:02-0400 Body temperature 97.3 [degF] Tino Bowen MD Work Phone: [facility] 03-04-2024 10:02-0400 Body weight 113.85 kg Tino Bowen MD Work Phone: [facility] 03-04-2024 10:02-0400 Diastolic blood pressure 76 mm[Hg] Tino Bowen MD Work Phone: [facility] 03-04-2024 10:02-0400 Heart rate 61 /min Tino Bowen MD Work Phone: [facility] 03-04-2024 10:02-0400 Respiratory rate 18 /min Tino Bowen MD Work Phone: [facility] 03-04-2024 10:02-0400 SaO2% (BldA) [Mass fraction] 99 % Tino Bowen MD Work Phone: [facility] 03-04-2024 10:02-0400 Systolic blood pressure 140 mm[Hg] Tino Bowen MD Work Phone: [facility] 01-31-2024 09:49-0400 Body height 165.1 cm Jessika Maxwellett Work Phone: [facility] 01-31-2024 09:49-0400 Body mass index (BMI) [Ratio] 40.77 kg/m2 Jessika Armstrong Work Phone: [facility] 01-31-2024 09:49-0400 Body weight 111.13 kg Jessika Wirama Work Phone: [facility] [employer] 01-31-2024 09:49-0400 Diastolic blood pressure 68 mm[Hg] Jessika [employer] DO Work Phone: [facility] [employer] 01-31-2024 09:49-0400 Heart rate 68 /min Jessika Wirama Work Phone: [facility] [employer] 01-31-2024 09:49-0400 Respiratory rate 16 /min Jessika Wirama Work Phone: [facility] [employer] 01-31-2024 09:49-0400 SaO2% (BldA) [Mass fraction] 99 % Jessika Wirama Work Phone: [facility] [employer] 01-31-2024 09:49-0400 Systolic blood pressure 118 mm[Hg] Jessika Wirama Work Phone: [facility] [employer] 10-11-2022 16:55-0400 Body height 165.1 cm Elo Cookmond Other [facility] Other 10-11-2022 16:55-0400 Body mass index (BMI) [Ratio] 42.3 kg/m2 Elo Eden Other [facility] Other 10-11-2022 16:55-0400 Body temperature 98.6 [degF] Elo Eden Other [facility] Other 10-11-2022 16:55-0400 Body weight 115.31 kg Elo Eden Other [facility] Other 10-11-2022 16:55-0400 Diastolic blood pressure 80 mm[Hg] Elo Eden Other [facility] Other 10-11-2022 16:55-0400 Respiratory rate 18 /min Elo Eden Other [facility] Other 10-11-2022 16:55-0400 SaO2% (BldA) [Mass fraction] 99 % Elo Harmon Other [facility] Other 10-11-2022 16:55-0400 Systolic blood pressure 127 mm[Hg] Elo Harmon Other [facility] Other Encounters Encounter Date Encounter Type Care Provider Facility Start: 12-25-2024 End: 12-25-2024 Bamboo DLCheet Tino Bowen MD Work Phone: [facility] Start: 12-25-2024 End: 12-25-2024 Wonderloopheet Tino Bowen MD Work Phone: [facility] Start: 12-25-2024 End: 12-25-2024 Office outpatient visit 25 minutes Tino Bowen MD Work Phone: [facility] Comment on above: Generalized abdomina l pain (Primary Dx); Functional diarrhea; MDD (major depressive disorder), single episode, mild ; MARIELOS (generalized anxiety disorder) ; Hiatal hernia with GERD and esophagitis; Gouty arthritis; Class 3 severe obesity due to excess calories with serious comorbidity and body mass index (BMI) of 40.0 to 44.9 in adult ([facility]); Encounter for long-term (current) use of medications; Adult hypothyroidism Start: 11-13-2024 End: 11-13-2024 Bamboo flowsheet Tino Bowen MD Work Phone: [facility] Start: 11-13-2024 End: 11-13-2024 BamLessonLabo DLCheet Tino Bowen MD Work Phone: [facility] Start: 11-13-2024 End: 11-13-2024 Office outpatient visit 25 minutes Tino Bowen MD Work Phone: [facility] Comment on above: MDD (major depressiv e disorder), single episode, mild (HCC) (CMS/HCC) (Primary Dx); MARIELOS (generalized anxiety disorder) (CMS/HCC); Gouty arthritis; Hiatal hernia with GERD and esophagitis; Adult hypothyroidism (CMS/HCC); SOB (shortness of breath); Vitamin D deficiency; Class 3 severe obesity due to excess calories with serious comorbidity and body mass index (BMI) of 40.0 to 44.9 in adult Start: 11-13-2024 End: 11-13-2024 ambulatory TINO BOWEN Not Available Start: 08-23-2024 End: 08-23-2024 ambulatory MARK PERRY V Not Available Start: 08-15-2024 End: 08-15-2024 External Result Encounter Mark Perry MD Work Phone: [facility]solicited Start: 08-15-2024 End: 08-15-2024 External Result Encounter Mark Zhang MD Work Phone: [facility] Unsolicited Start: 08-15-2024 End: 08-15-2024 Admission to same day surgery center Tino Bowen MD Work Phone: [facility] [place] Start: 08-15-2024 End: 08-15-2024 ambulatory Tino Bowen MD Work Phone: [facility] Work Phone: Start: 08-14-2024 End: 08-14-2024 Clinisync Result Encounter Tino Bowen MD Work Phone: [facility] Unsolicited Start: 08-14-2024 End: 08-14-2024 Clinisync Result Encounter Tino Bowen MD Work Phone: [facility] Unsolicited Start: 08-08-2024 End: 08-08-2024 Bamboo flowsheet Tino Bowen MD Work Phone: [facility] Start: 08-08-2024 End: 08-08-2024 Bamboo flowsheet Tino Bowen MD Work Phone: [facility] Start: 08-08-2024 End: 08-08-2024 Office outpatient visit 25 minutes iTno Bowen MD Work Phone: [facility] Comment on above: MARIELOS (generalized anx iety disorder) ([facility]) (Primary Dx); Chronic rhinosinusitis; Adult hypothyroidism ([facility]); Gouty arthritis; Hiatal hernia with GERD and esophagitis; Calculus of gallbladder without cholecystitis without obstruction; Class 3 severe obesity due to excess calories with serious comorbidity and body mass index (BMI) of 40.0 to 44.9 in adult ([facility]) Start: 08-08-2024 End: 08-08-2024 ambulatory TINO BOWEN Not Available Start: 08-01-2024 End: 08-01-2024 Departed Referred Tino Bowen MD Work Phone: [facility] [employer] [facility] Work Phone: Start: 08-01-2024 End: 08-01-2024 Patient encounter procedure Tino Bowen MD Work Phone: [facility] [employer] Work Phone: Start: 08-01-2024 End: 08-01-2024 ambulatory Tino Bowen MD Work Phone: [facility] Work Phone: Start: 07-24-2024 End: 07-24-2024 Office outpatient new 45 minutes Mark Perry MD Work Phone: [facility] Comment on above: Calculus of gallblad miguelina with chronic cholecystitis without obstruction Start: 07-24-2024 End: 07-24-2024 ambulatory MARK PERRY V Not Available Start: 07-11-2024 End: 07-11-2024 Bamboo flowsheet Tino Bowen MD Work Phone: [facility] Start: 07-11-2024 End: 07-11-2024 Bamboo flowsheet Tino Bowen MD Work Phone: [facility] Start: 07-11-2024 End: 07-11-2024 ambulatory TINO BOWEN Not Available Start: 07-11-2024 End: 07-11-2024 Office outpatient visit 25 minutes Tino Bowen MD Work Phone: [facility] Comment on above: Hiatal hernia with G ERD and esophagitis (Primary Dx); Calculus of gallbladder without cholecystitis without obstruction; Gouty arthritis; Class 3 severe obesity due to excess calories with serious comorbidity and body mass index (BMI) of 40.0 to 44.9 in adult ([facility]); Adult hypothyroidism ([facility]); Chronic rhinosinusitis Start: 06-10-2024 End: 06-10-2024 GuilleLessonLabkm DLCheet Tino Bowen MD Work Phone: [facility] Start: 06-10-2024 End: 06-10-2024 Margaret DLCheet Tino Bowen MD Work Phone: [facility] Start: 06-10-2024 End: 06-10-2024 ambulatory TINO BOWEN Not Available Start: 06-10-2024 End: 06-10-2024 Office outpatient visit 25 minutes Tino Bowen MD Work Phone: [facility] Comment on above: Hiatal hernia with G ERD and esophagitis (Primary Dx); Gouty arthritis; MDD (major depressive disorder), single episode, mild (HCC) ([facility]); MARIELOS (generalized anxiety disorder) ([facility]); Calculus of gallbladder without cholecystitis without obstruction; Class 3 severe obesity due to excess calories with serious comorbidity and body mass index (BMI) of 40.0 to 44.9 in adult ([facility]); Vitamin D deficiency; Adult hypothyroidism ([facility]); Upper respiratory tract infection, unspecified type Start: 04-25-2024 End: 04-25-2024 Refill Tino Bowen MD Work Phone: [facility] Comment on above: Calculus of gallblad miguelina without cholecystitis without obstruction Start: 03-28-2024 End: 03-28-2024 Refill Tino Bowen MD Work Phone: [facility] Comment on above: Morbid obesity due t o excess calories (CMS/HCC) Start: 03-19-2024 End: 03-19-2024 ambulatory Willie R NILL Facility:[facility] Start: 03-13-2024 End: 03-13-2024 ambulatory Willie R NILL [facility] Start: 03-08-2024 End: 03-08-2024 ambulatory Willie R NILL Facility[place] Start: 03-04-2024 End: 03-04-2024 Bamboo flowsheet Tino Bowen MD Work Phone: [facility] Start: 03-04-2024 End: 03-04-2024 Bamboo flowsheet Tino Bowen MD Work Phone: [facility] Start: 03-04-2024 End: 03-04-2024 Office outpatient visit 25 minutes Tino Bowen MD Work Phone: [facility] Comment on above: Calculus of gallblad miguelina without cholecystitis without obstruction (Primary Dx); Right upper quadrant abdominal pain; MDD (major depressive disorder), single episode, mild (HCC) (CMS/HCC); MARIELOS (generalized anxiety disorder) (CMS/HCC) Start: 03-04-2024 End: 03-04-2024 ambulatory TINO BOWEN Not Available Start: 02-22-2024 End: 02-22-2024 ambulatory Willie R NILL Facility:[facility] Start: 02-16-2024 ambulatory Willie NILL Facility:[facility] Start: 02-02-2024 ambulatory Willie NILL Facility:[facility] Start: 01-31-2024 End: 01-31-2024 Bamboo flowsheet Jessika Nathaniel DO Work Phone: [facility] Start: 01-31-2024 End: 01-31-2024 Bamboo flowsheet Jessika Nathaniel DO Work Phone: [facility] Start: 01-31-2024 End: 01-31-2024 Refill Tino Bowen MD Work Phone: [facility] Comment on above: Calculus of gallblad miguelina without cholecystitis without obstruction Start: 01-31-2024 End: 01-31-2024 Office outpatient new 45 minutes Jessika Nathaniel Work Phone: [facility] Comment on above: Biliary colic (Prima ry Dx); Symptomatic cholelithiasis Start: 01-31-2024 End: 01-31-2024 Orders Only Tino Bowen MD Work Phone: [facility] Comment on above: Calculus of gallblad miguleina without cholecystitis without obstruction (Primary Dx) Start: 01-29-2024 End: 01-29-2024 Telephone encounter Tino Bowen MD Work Phone: [facility] Start: 01-26-2024 End: 01-26-2024 ambulatory SANGEETA SRINI Not Available Start: 01-19-2024 End: 01-19-2024 ambulatory TINO BOWEN Not Available Start: 01-18-2024 End: 01-18-2024 ambulatory SANGEETA SRINI Not Available Start: 01-11-2024 End: 01-11-2024 ambulatory SANGEETA SRINI Not Available Start: 01-03-2024 End: 01-03-2024 ambulatory TINO BOWEN Not Available Start: 11-23-2023 End: 11-23-2023 ambulatory TINO BOWEN Not Available Start: 08-28-2023 Patient encounter procedure Tino Bowen MD Work Phone: [facility] Start: 10-11-2022 End: 10-11-2022 ambulatory Elo Harmon Other [facility] Other Start: 10-11-2022 Office outpatient vi sit 15 minutes Elo Harmon [facility] Start: 08-09-2022 Encounter for genera l adult medical examination without abnormal findings DR TINO BOWEN [facility] Start: 08-08-2022 End: 08-09-[address] TINO BOWEN Facility: Start: 08-08-2022 End: 08-09-2022 Encounter for general adult medical examination without abnormal findings DR TINO BOWEN Facility:[facility] Start: 05-09-2022 End: 05-09-2022 ambulatory DEANNE CASSI Facility:[facility] Procedures Date Procedure Procedure Detail Performing Clinician Start: 08-15-2024 Laparoscopic cholecystectomy Tino Bowen MD Work Phone: Start: 08-15-2024 Assay of amylase Mark Perry MD Work Phone: Start: 08-14-2024 ALL THYROID STIM HORMONE Tino Bowen MD Work Phone: Plan of Treatment Date Care Activity Detail Author Start: 02-05-2025 End: 02-05-2025 Patient encounter procedure 02/05/2025 8:30 AM EDT Office Visit [facility] [address] [place] [phone] Tino Bowen MD [address] [place] [phone] [facility] Start: 02-03-2025 Influenza vaccination [facility] Start: 12-25-2024 End: 12-25-2025 Amylase [Enzymatic activity/volume] in Serum or Plasma Amylase Lab Routine Generalized abdominal pain Expected: 12/25/2024 (Approximate), Expires: 12/25/2025 [facility] Comment on above: Expected: 12/25/2024 (Approximate), Expires: 12/25/2025 Start: 12-25-2024 End: 12-25-2025 Basic metabolic 1998 panel - Serum or Plasma Basic metabolic panel Lab Routine Encounter for long-term (current) use of medications Expected: 12/25/2024 (Approximate), Expires: 12/25/2025 [facility] Comment on above: Expected: 12/25/2024 (Approximate), Expires: 12/25/2025 Start: 12-25-2024 End: 12-25-2025 CBC W Auto Differential panel - Blood CBC and differential Lab Routine Encounter for long-term (current) use of medications Expected: 12/25/2024 (Approximate), Expires: 12/25/2025 [facility] Comment on above: Expected: 12/25/2024 (Approximate), Expires: 12/25/2025 Start: 12-25-2024 End: 12-25-2025 Hemoglobin A1c/Hemoglobin.total in Blood Hemoglobin A1c Lab Routine Class 3 severe obesity due to excess calories with serious comorbidity and body mass index (BMI) of 40.0 to 44.9 in adult ([facility]) Expected: 12/25/2024 (Approximate), Expires: 12/25/2025 [facility] Work Phone: Comment on above: Expected: 12/25/2024 (Approximate), Expires: 12/25/2025 Start: 12-25-2024 End: 12-25-2025 Hepatic function 2000 panel - Serum or Plasma Hepatic function panel Lab Routine Generalized abdominal pain Expected: 12/25/2024 (Approximate), Expires: 12/25/2025 [facility] Comment on above: Expected: 12/25/2024 (Approximate), Expires: 12/25/2025 Start: 12-25-2024 End: 12-25-2025 Lipase [Enzymatic activity/volume] in Serum or Plasma Lipase Lab Routine Generalized abdominal pain Expected: 12/25/2024 (Approximate), Expires: 12/25/2025 [facility] Comment on above: Expected: 12/25/2024 (Approximate), Expires: 12/25/2025 Start: 12-25-2024 End: 12-25-2025 Lipid 1996 panel - Serum or Plasma Lipid panel Lab Routine Class 3 severe obesity due to excess calories with serious comorbidity and body mass index (BMI) of 40.0 to 44.9 in adult ([facility]) Expected: 12/25/2024 (Approximate), Expires: 12/25/2025 [facility] Comment on above: Expected: 12/25/2024 (Approximate), Expires: 12/25/2025 Start: 12-25-2024 End: 12-25-2025 Thyrotropin [Units/volume] in Serum or Plasma TSH Lab Routine Adult hypothyroidism Expected: 12/25/2024 (Approximate), Expires: 12/25/2025 [facility] Comment on above: Expected: 12/25/2024 (Approximate), Expires: 12/25/2025 Start: 12-25-2024 End: 12-25-2025 Thyroxine (T4) free [Mass/volume] in Serum or Plasma T4, free Lab Routine Adult hypothyroidism Expected: 12/25/2024 (Approximate), Expires: 12/25/2025 [facility] Comment on above: Expected: 12/25/2024 (Approximate), Expires: 12/25/2025 Start: 12-25-2024 End: 12-25-2024 Patient encounter procedure [facility] Comment on above: Arrived Start: 11-13-2024 End: 11-13-2024 Patient encounter procedure [facility] Comment on above: Arrived Start: 08-23-2024 End: 08-23-2024 Patient encounter procedure 08/23/2024 10:30 AM EDT Office Visit [facility] [address] [phone] Mark Perry MD [address] [facility] [address] [place] [address] [facility] Start: 08-15-2024 [facility] Start: 08-15-2024 [facility] Start: 08-08-2024 End: 08-08-2024 Patient encounter procedure [facility] Comment on above: Arrived Start: 07-11-2024 End: 07-11-2024 Patient encounter procedure 07/11/2024 9:15 AM EST Office Visit [facility] [address] [place] [address] Tino Bowen MD [address] [place] [address] [facility] Start: 06-10-2024 End: 06-10-2025 Thyrotropin [Units/volume] in Serum or Plasma TSH Lab Routine Adult hypothyroidism (CMS/HCC) Expected: 06/10/2024 (Approximate), Expires: 06/10/2025 [facility] Work Phone: Comment on above: Expected: 06/10/2024 (Approximate), Expires: 06/10/2025 Start: 06-10-2024 End: 06-10-2025 Thyroxine (T4) free [Mass/volume] in Serum or Plasma T4, free Lab Routine Adult hypothyroidism (CMS/HCC) Expected: 06/10/2024 (Approximate), Expires: 06/10/2025 [facility] Comment on above: Expected: 06/10/2024 (Approximate), Expires: 06/10/2025 Start: 06-10-2024 End: 06-10-2024 Patient encounter procedure 06/10/2024 8:00 AM EST [facility] [address] [place] [address] Tino Bowen MD [address] [place] [phone] [facility] Start: 03-04-2024 End: 03-04-2024 Patient encounter procedure [facility] Comment on above: Arrived Start: 02-04-2024 Influenza vaccination Influenza Vacc ine (#1) [facility] Patient Education Hydrocodone an d Acetaminophen Cholecystectomy - Discharge instructions Know your Meds [facility] Work Phone: Patient referral [facility] Work Phone: Immunizations Immunization Date Immunization Notes Care Provider Fa cility 12-17-2020 COVID-19 mRNA-1273 (Moderna) Tino Bowen MD Work Phone: [facility] 11-19-2020 COVID-19 mRNA-1273 (Moderna) Tino Bowen MD Work Phone: [facility] Payers Date Payer Category [facility] [id number] 2024 Unknown [id number] 2023 Private Health Insurance [id number] 2023 Private Health Insurance [id number] 2022 Medicaid [id number] 2000 Unknown [id number] 2.16.840.1.204230.3.579. 2.593 2000 Unknown [id number] 2.16.840.1.065123.3.579. 2.593 2000 Unknown [id number] 2.16.840.1.049709.3.579. 2.727 2000 Unknown [id number] 2.16.840.1.824856.3.579. 2.727 2000 Unknown [id number] 2.16.840.1.127764.3.579. 2.727 2000 Unknown [id number] 2.16.840.1.846123.3.579. 2.727 2000 Unknown [id number] 2.16.840.1.818181.3.579. 2.1259 2000 Unknown [id number] 2.16.840.1.524019.3.579. 2.1259 2000 Unknown [id number] 2.16.840.1.715505.3.579. 2.1259 2000 Unknown [id number] 2.16.840.1.006101.3.579. 2.1259 2000 Unknown [id number] 2.16.840.1.233608.3.579. 2.9 2000 Unknown [id number] 2.16.840.1.165241.3.579. 2.1258 2000 Unknown [id number] 2.16.840.1.980438.3.579. 2.1258 2000 Unknown [id number] 2.16.840.1.971478.3.579. 2.1258 2000 Unknown [id number] 2.16.840.1.425890.3.579. 2.1258 2000 Unknown [id number] 2.16.840.1.702293.3.579. 2.1258 2000 Unknown [id number] 2.16.840.1.676903.3.579. 2.1258 2000 Unknown [id number] 2.16.840.1.875950.3.579. 2.1258 2000 Unknown [id number] 2.16.840.1.834754.3.579. 2.1258 2000 Unknown [id number] 2.16.840.1.436219.3.579. 2.9 1959 Self-pay Medicaid [employer] [id number] Unknown [id number] 2.16.840.1.513710.3.579. 2.531 Unknown [id number] 2.16.840.1.711821.3.579. 2.531 Social History Date Type Detail Facility Start: 03-04-2024 End: 12-25-2024 Sex Assigned At [facility] Other Start: 08-28-2023 End: 08-15-2024 Tobacco smoking status MTIS Never smoked tobacco [facility] Start: 08-28-2023 Tobacco use and exposure Smokeless tobacco non-user [facility] Start: 03-04-2024 End: 12-25-2024 History of Social function [facility] Start: 2000 Sex assigned at Not on file [facility] Start: 08-02-2024 End: 08-15-2024 Sex Female (finding) [facility] Start: 2000 Sex Assigned At Female [facility] Goals Date Patient Goal Desired Activity /State Clinical Notes 10-11-2022 to 12-25-2024 Tino Bowen MD - 12/25/2024 10:08 AM EDCynthia Bowen MD - 12/25/2024 10:08 AM Brian Bowen MD - 12/25/2024 10:08 AM EDCynthia Bowen MD - 12/25/2024 10:08 AM EDT Note Date & Type Note Facility 12-25-2024 History of Present illness Narrative Associated Problem(s): MDD (major depressive disorder), single episode, mild Symptoms slightly better but still present and increase zoloft. Warned will take 2-3 weeks to notice improvement in mood. Associated Problem(s): Hiatal hernia with GERD and esophagitis Symptoms improved with protonix and continue. Associated Problem(s): Gouty arthritis No flares and continue allopurinol. Associated Problem(s): Generalized abdominal pain Frequent pain and check labs. Associated Problem(s): MARIELOS (generalized anxiety disorder) Symptoms slightly better but still present and increase zoloft. Warned will take 2-3 weeks to notice improvement in mood. Use xanax PRN. Associated Problem(s): Diarrhea Frequent diarrhea since gallbladder surgery. Try cholestyramine and probiotic. Associated Problem(s): Class 3 severe obesity due to excess calories with serious comorbidity and body mass index (BMI) of 40.0 to 44.9 in adult ([facility]) Patient doing well with adipex and lost 2 pounds in first month. Tolerating well with only mild dry mouth. Continue with dietary changes and less calories. Need to limit snacking and smaller portions. Continue healthier choices. Need regular aerobic exercise 30 minutes at a time 5-6 days a week. Refill for another month. OARRS reviewed. Continue meds as prescribed. If develop new or worsening symptoms contact office. Images from the original note were not included. Subjective Patient ID: Armando Mcrae is a 24 y.o. female who presents for Follow-up (1m f/u). Follow up depression, anxiety, GERD, gout, and weight. Abdominal pain and symptoms returned several weeks ago. C/o severe pain and discomfort after eating. Once eat feels full and develops pain and cramping. Bowels irregular since cholecystectomy and frequent diarrhea. Depression slightly better with zoloft but still symptoms. Down, sad, and no motivation. Not want to do things or be around others. Not want to leave house. Anxiety stable. Not as stressed out or overwhelmed. Not as nervous or worry as much. Not as aguilera or irritable. Using xanax PRN and helps. GERD controlled with protonix. Denies epigastric pain or burning and not waking up with symptoms. Gout controlled with allopurinol. No joint pain or stiffness. No swelling or erythema. Taking adipex and down 2 pounds. Tolerating medication without side effects except mild dry mouth. Not as hungry with medication. Smaller portions and not snacking. Increased fruits and vegetables. Tries to limit total daily calories. Increased activity and walking almost daily. Review of Systems Respiratory: Negative for cough, shortness of breath and wheezing. Cardiovascular: Negative for chest pain and palpitations. Gastrointestinal: Negative for abdominal pain, diarrhea, nausea and vomiting. Genitourinary: Negative for dysuria. Objective Physical Exam Constitutional: General: She is not in acute distress. Appearance: Normal appearance. HENT: Head: Normocephalic. Right Ear: Tympanic membrane normal. Left Ear: Tympanic membrane normal. Eyes: Extraocular Movements: Extraocular movements intact. Pupils: Pupils are equal, round, and reactive to light. Cardiovascular: Rate and Rhythm: Normal rate and regular rhythm. Heart sounds: No murmur heard. No friction rub. No gallop. Pulmonary: Effort: Pulmonary effort is normal. Breath sounds: Normal breath sounds. No wheezing, rhonchi or rales. Abdominal: General: Bowel sounds are normal. There is no distension. Palpations: Abdomen is soft. Tenderness: There is no abdominal tenderness. There is no guarding or rebound. Musculoskeletal: Cervical back: Neck supple. Right lower leg: No edema. Left lower leg: No edema. Neurological: Mental Status: She is alert. Assessment/Plan Problem List Items Addressed This Visit MARIELOS (generalized anxiety disorder) Symptoms slightly better but still present and increase zoloft. Warned will take 2-3 weeks to notice improvement in mood. Use xanax PRN. Relevant Medications sertraline (Zoloft) 50 MG tablet Gouty arthritis No flares and continue allopurinol. MDD (major depressive disorder), single episode, mild Symptoms slightly better but still present and increase zoloft. Warned will take 2-3 weeks to notice improvement in mood. Class 3 severe obesity due to excess calories with serious comorbidity and body mass index (BMI) of 40.0 to 44.9 in adult ([facility]) Patient doing well with adipex and lost 2 pounds in first month. Tolerating well with only mild dry mouth. Continue with dietary changes and less calories. Need to limit snacking and smaller portions. Continue healthier choices. Need regular aerobic exercise 30 minutes at a time 5-6 days a week. Refill for another month. OARRS reviewed. Continue meds as prescribed. If develop new or worsening symptoms contact office. Relevant Medications phentermine (Adipex-P) 37.5 MG tablet Other Relevant Orders Hemoglobin A1c Lipid panel Adult hypothyroidism Relevant Orders TSH T4, free Hiatal hernia with GERD and esophagitis Symptoms improved with protonix and continue. Generalized abdominal pain - Primary Frequent pain and check labs. Relevant Orders Hepatic function panel Amylase Lipase Diarrhea Frequent diarrhea since gallbladder surgery. Try cholestyramine and probiotic. Relevant Medications cholestyramine (Questran) 4 GM/DOSE powder Bacillus Coagulans-Inulin (Probiotic) 1-250 BILLION-MG capsule Other Visit Diagnoses Encounter for long-term (current) use of medications Relevant Orders Basic metabolic panel CBC and differential documented in this encounter [facility] 11-13-2024 History of Present illness Narrative Associated Problem(s): MDD (major depressive disorder), single episode, mild (HCC) (CMS/HCC) Symptoms much worse without zoloft and resume. Warned will take 2-3 weeks to notice improvement in mood. Associated Problem(s): Hiatal hernia with GERD and esophagitis Symptoms worse without protonix and refill. Associated Problem(s): Gouty arthritis Recent flare and resume allopurinol. Associated Problem(s): MARIELOS (generalized anxiety disorder) ([facility]) Symptoms much worse without zoloft and resume. Warned will take 2-3 weeks to notice improvement in mood. Use xanax PRN. Associated Problem(s): Class 3 severe obesity due to excess calories with serious comorbidity and body mass index (BMI) of 40.0 to 44.9 in adult Patient overweight and difficult time losing weight. Discussed proper diet and regular aerobic exercise. Recommend Weight Watchers and need to limit calories and smaller portions. Need to increase activity and regular aerobic exercise several days a week for 30 minutes at a time. Interested in adipex and warned of potential cardiac side effects. Script written for first month and will need to recheck weight in 1 month. OARRS reviewed. Continue medications as prescribed. Associated Problem(s): Adult hypothyroidism (CMS/HCC) Resume synthroid. Images from the original note were not included. Subjective Patient ID: Armando Mcrae is a 24 y.o. female who presents for Follow-up (3m). Follow up abdominal pain, depression, anxiety, GERD, gout, and weight. Patient had lap choly few months ago and symptoms mostly resolved. Minimal abdominal pain since and doing well. Patient had problems with insurance and stopped all medication for the past few months. Mood much worse without zoloft. Down, sad, and crying. No motivation and not want to do things or be around others. Not want to leave house. Severe anxiety. Nervous and worry all the time. Stressed out and overwhelmed. Thought racing and hard to clear mind. Aguilera, irritable and snapping at others. Easily upset and overreact. GERD worse without protonix. Increased epigastric pain and burning. Frequently waking up with symptoms. Patient had gouty flare with pain in foot few days after surgery. Weight up 8 pounds. Previously did well with adipex and wants to resume. Review of Systems Respiratory: Negative for cough, shortness of breath and wheezing. Cardiovascular: Negative for chest pain and palpitations. Gastrointestinal: Negative for abdominal pain, diarrhea, nausea and vomiting. Genitourinary: Negative for dysuria. Objective Physical Exam Constitutional: General: She is not in acute distress. Appearance: Normal appearance. HENT: Head: Normocephalic. Right Ear: Tympanic membrane normal. Left Ear: Tympanic membrane normal. Eyes: Extraocular Movements: Extraocular movements intact. Pupils: Pupils are equal, round, and reactive to light. Cardiovascular: Rate and Rhythm: Normal rate and regular rhythm. Heart sounds: No murmur heard. No friction rub. No gallop. Pulmonary: Effort: Pulmonary effort is normal. Breath sounds: Normal breath sounds. No wheezing, rhonchi or rales. Abdominal: General: Bowel sounds are normal. There is no distension. Palpations: Abdomen is soft. Tenderness: There is no abdominal tenderness. There is no guarding or rebound. Musculoskeletal: Cervical back: Neck supple. Right lower leg: No edema. Left lower leg: No edema. Neurological: Mental Status: She is alert. Assessment/Plan Problem List Items Addressed This Visit MARIELOS (generalized anxiety disorder) (CMS/HCC) Symptoms much worse without zoloft and resume. Warned will take 2-3 weeks to notice improvement in mood. Use xanax PRN. Relevant Medications sertraline (Zoloft) 25 MG tablet ALPRAZolam (Xanax) 0.5 MG tablet Gouty arthritis Recent flare and resume allopurinol. MDD (major depressive disorder), single episode, mild (HCC) (CMS/HCC) - Primary Symptoms much worse without zoloft and resume. Warned will take 2-3 weeks to notice improvement in mood. Class 3 severe obesity due to excess calories with serious comorbidity and body mass index (BMI) of 40.0 to 44.9 in adult Patient overweight and difficult time losing weight. Discussed proper diet and regular aerobic exercise. Recommend Weight Watchers and need to limit calories and smaller portions. Need to increase activity and regular aerobic exercise several days a week for 30 minutes at a time. Interested in adipex and warned of potential cardiac side effects. Script written for first month and will need to recheck weight in 1 month. OARRS reviewed. Continue medications as prescribed. Relevant Medications phentermine (Adipex-P) 37.5 MG tablet Vitamin D deficiency Relevant Medications cholecalciferol (Vitamin D-3) 50 MCG (1999 UT) tablet Adult hypothyroidism (CMS/HCC) Resume synthroid. Relevant Medications levothyroxine (Synthroid) 75 MCG tablet Hiatal hernia with GERD and esophagitis Symptoms worse without protonix and refill. Relevant Medications pantoprazole (Protonix) 40 MG EC tablet SOB (shortness of breath) Relevant Medications albuterol HFA 90 mcg/act inhaler documented in this encounter [facility] 08-08-2024 History of Present illness Narrative Associated Problem(s): Hiatal hernia with GERD and esophagitis Continue protonix. Associated Problem(s): Gouty arthritis No flares and continue allopurinol. Associated Problem(s): MARIELOS (generalized anxiety disorder) ([facility]) Worsening symptoms and resume zoloft. Warned will take 2-3 weeks to notice improvement in mood. Use xanax PRN. Associated Problem(s): Class 3 severe obesity due to excess calories with serious comorbidity and body mass index (BMI) of 40.0 to 44.9 in adult ([facility]) Patient doing well with adipex and lost 5 pounds in first month. Tolerating well with only mild dry mouth. Continue with dietary changes and less calories. Need to limit snacking and smaller portions. Continue healthier choices. Need regular aerobic exercise 30 minutes at a time 5-6 days a week. Refill for another month. OARRS reviewed. Continue meds as prescribed. If develop new or worsening symptoms contact office. Associated Problem(s): Chronic rhinosinusitis Continued symptoms and try nasacort. Associated Problem(s): Calculus of gallbladder without cholecystitis without obstruction Scheduled for surgery. Associated Problem(s): Adult hypothyroidism ([facility]) No signs of low thyroid and repeat labs. Take medication daily. Images from the original note were not included. Subjective Patient ID: Armando Mcrae is a 24 y.o. female who presents for Follow-up. Follow up abdominal pain, GERD, gout, sinuses, thyroid, and weight. Seen by surgeon and scheduled for lap choly 08/15. GERD controlled with protonix. Denies epigastric pain or burning and not waking up with symptoms. Gout controlled with allopurinol. No joint pain or stiffness. No swelling or erythema. Taking synthroid daily and no signs of low thyroid. Denies fatigue, cold intolerance, or changes to hair, nails, or skin. Taking adipex daily and weight down 5 pounds. Tolerating medication without side effects except mild dry mouth. Not as hungry with medication. Smaller portions and not snacking. Increased fruits and vegetables. Tries to limit total daily calories. Working more but no exercise. C/o worsening anxiety. Severe stress and not handling well. Nervous and worry all the time. Stressed out and overwhelmed. Thought racing and hard to clear mind. Aguilera, irritable and snapping at others. Easily upset and overreact. Previously on medication but not for months. Review of Systems Respiratory: Negative for cough, shortness of breath and wheezing. Cardiovascular: Negative for chest pain and palpitations. Gastrointestinal: Negative for abdominal pain, diarrhea, nausea and vomiting. Genitourinary: Negative for dysuria. Objective Physical Exam Constitutional: General: She is not in acute distress. Appearance: Normal appearance. HENT: Head: Normocephalic. Right Ear: Tympanic membrane normal. Left Ear: Tympanic membrane normal. Eyes: Extraocular Movements: Extraocular movements intact. Pupils: Pupils are equal, round, and reactive to light. Cardiovascular: Rate and Rhythm: Normal rate and regular rhythm. Heart sounds: No murmur heard. No friction rub. No gallop. Pulmonary: Effort: Pulmonary effort is normal. Breath sounds: Normal breath sounds. No wheezing, rhonchi or rales. Abdominal: General: Bowel sounds are normal. There is no distension. Palpations: Abdomen is soft. Tenderness: There is no abdominal tenderness. There is no guarding or rebound. Musculoskeletal: Cervical back: Neck supple. Right lower leg: No edema. Left lower leg: No edema. Neurological: Mental Status: She is alert. Assessment/Plan Problem List Items Addressed This Visit MARIELOS (generalized anxiety disorder) ([facility]) - Primary Worsening symptoms and resume zoloft. Warned will take 2-3 weeks to notice improvement in mood. Use xanax PRN. Relevant Medications ALPRAZolam (Xanax) 0.5 MG tablet sertraline (Zoloft) 25 MG tablet Gouty arthritis No flares and continue allopurinol. Class 3 severe obesity due to excess calories with serious comorbidity and body mass index (BMI) of 40.0 to 44.9 in adult ([facility]) Patient doing well with adipex and lost 5 pounds in first month. Tolerating well with only mild dry mouth. Continue with dietary changes and less calories. Need to limit snacking and smaller portions. Continue healthier choices. Need regular aerobic exercise 30 minutes at a time 5-6 days a week. Refill for another month. OARRS reviewed. Continue meds as prescribed. If develop new or worsening symptoms contact office. Relevant Medications phentermine (Adipex-P) 37.5 MG tablet Chronic rhinosinusitis Continued symptoms and try nasacort. Relevant Medications triamcinolone (Nasacort) 55 MCG/ACT nasal inhaler Adult hypothyroidism ([facility]) No signs of low thyroid and repeat labs. Take medication daily. Calculus of gallbladder without cholecystitis without obstruction Scheduled for surgery. Hiatal hernia with GERD and esophagitis Continue protonix. Relevant Medications pantoprazole (Protonix) 40 MG EC tablet documented in this encounter [facility] 07-24-2024 History of Present illness Narrative Images from the original note were not included. Armando Mcrae 2000 Armando Mcrae is a 24 y.o. female presents with chief complaint of Consult (Gallbladder- Saw Dr Armstrong. Started back in Jan. Really bad stomach pains. Insurance did not cover previous surgeon. Saw [place] surgeon with [facility] [place] E[place] and further testing. Said she just had acid reflux and did not want to do any surgery. PCP than sent patient here. Currently about 25-30min. After eats the pain flares up. No nausea or vomiting.) HPI: Armando Mcrae is a 24 year old F who presents with gallbladder pain. She stated that the pain started January 2024 and that this was the first time this has been happening. She states the pain is located in her RUQ and radiates to her back. She describes the pain as an aching pain that hurts when she eats. She denies pain during inspiration. Patient states pain is present all the time but is worse shortly after eating. The types of foods do not seem to matter. Patient has normal bowel movements and denies changes to her stool. Patient also denies blood in her stool. Patient denies vomiting. Patient denies previous abdominal surgery. Patient did have a gallbladder ultrasound which showed gallstones. SUBJECTIVE: MEDICATIONS: ALLERGIES Current Outpatient Medications Medication Instructions albuterol HFA 90 mcg/act inhaler 2 puffs, Inhalation, Every 4 hours PRN allopurinol (ZYLOPRIM) 300 mg, Oral, Daily cholecalciferol (VITAMIN D-3) 50 mcg, Oral, Daily levothyroxine (SYNTHROID) 75 mcg, Oral, Daily before breakfast montelukast (SINGULAIR) 10 mg, Oral, Nightly pantoprazole (PROTONIX) 40 mg, Oral, 2 times daily, Do not crush, chew, or split. phentermine (ADIPEX-P) 37.5 mg, Oral, Daily before breakfast Allergies Allergen Reactions Tramadol GI intolerance and Nausea Only PAST MEDICAL HISTORY: SOCIAL HISTORY SURGICAL HISTORY: Past Medical History: Diagnosis Date Acne vulgaris Dysmenorrhea MARIELOS (generalized anxiety disorder) ([facility]) Gout, arthropathy Insomnia, persistent MDD (major depressive disorder), single episode, mild (HCC) ([facility]) Seasonal allergic rhinitis due to pollen Vitamin D deficiency Social History Tobacco Use Smoking status: Never Smokeless tobacco: Never No past surgical history on file. REVIEW OF SYMPTOMS: Review of Systems Constitutional: Negative for chills, fatigue and fever. Respiratory: Negative for cough, shortness of breath and wheezing. Cardiovascular: Negative for chest pain, palpitations and leg swelling. Gastrointestinal: Positive for abdominal pain. Negative for blood in stool, nausea and vomiting. Genitourinary: Negative for difficulty urinating, frequency, hematuria and urgency. Neurological: Negative for dizziness, tremors and numbness. OBJECTIVE: Visit Vitals BP (!) 138/96 Ht 5' 3.5 Wt 248 lb BMI 43.24 kg/m OB Status Having periods Smoking Status Never BSA 2.24 m Physical Exam HENT: Head: Atraumatic. Eyes: General: No scleral icterus. Pupils: Pupils are equal, round, and reactive to light. Cardiovascular: Rate and Rhythm: Normal rate and regular rhythm. Heart sounds: No murmur heard. No friction rub. No gallop. Pulmonary: Effort: Pulmonary effort is normal. Breath sounds: No wheezing, rhonchi or rales. Abdominal: Palpations: Abdomen is soft. Tenderness: There is abdominal tenderness. There is no guarding. Comments: Rt upper quadrant tenderness Skin: General: Skin is warm. Coloration: Skin is not jaundiced. Findings: No erythema. Neurological: General: No focal deficit present. Mental Status: She is alert. ASSESSMENT AND PLAN: Assessment/Plan Diagnoses and all orders for this visit: Calculus of gallbladder with chronic cholecystitis without obstruction - Ambulatory referral to General Surgery Plan will be to perform a laparoscopic cholecystectomy. Procedure, benefits, risks including risks of bleeding, infection, need for open surgery, bile duct injury possibly requiring transfer to Tertiary Care, bile leak, diarrhea, DVT, neuroma, hernia were discussed. The booklet on gallbladder surgery was reviewed with the patient. documented in this encounter [facility] 07-11-2024 History of Present illness Narrative Associated Problem(s): Chronic rhinosinusitis Continued symptoms and treat with prednisone. Start singulair. Associated Problem(s): Hiatal hernia with GERD and esophagitis Start protonix. Associated Problem(s): Gouty arthritis No flares and continue allopurinol. Associated Problem(s): Class 3 severe obesity due to excess calories with serious comorbidity and body mass index (BMI) of 40.0 to 44.9 in adult ([facility]) Patient overweight and difficult time losing weight. Discussed proper diet and regular aerobic exercise. Recommend Weight Watchers and need to limit calories and smaller portions. Need to increase activity and regular aerobic exercise several days a week for 30 minutes at a time. Interested in adipex and warned of potential cardiac side effects. Script written for first month and will need to recheck weight in 1 month. OARRS reviewed. Continue medications as prescribed. Associated Problem(s): Calculus of gallbladder without cholecystitis without obstruction Continued pain and refer to surgeon. Associated Problem(s): Adult hypothyroidism ([facility]) Not on medication and resume. Repeat labs in 6 weeks. Images from the original note were not included. Subjective Patient ID: Armando Mcrae is a 24 y.o. female who presents for Follow-up (1 m). Follow up abdominal pain, gout, thyroid, and weight. No change in abdominal pain. Initially seen by surgeon and wanted to remove gallbladder but insurance was not accepted at hospital. Seen different surgeon and had EGD which showed hiatal hernia with gastritis. Given PPI but no change. Continued pain. Now new insurance and wanted to return to original surgeon but he left the area. Gout controlled with allopurinol. No joint pain or stiffness. No swelling or erythema. Weight up 5 pounds and was not able to start adipex. Trying to increase activity and change diet. Continues to c/o ears plugged and postnasal drip. Pressure in both ears. Mild congestion. Feels like phlegm in back of throat. Tried OTC xyzal but no change. Review of Systems Respiratory: Negative for cough, shortness of breath and wheezing. Cardiovascular: Negative for chest pain and palpitations. Gastrointestinal: Negative for abdominal pain, diarrhea, nausea and vomiting. Genitourinary: Negative for dysuria. Objective Physical Exam Constitutional: General: She is not in acute distress. Appearance: Normal appearance. HENT: Head: Normocephalic. Right Ear: Tympanic membrane normal. Left Ear: Tympanic membrane normal. Eyes: Extraocular Movements: Extraocular movements intact. Pupils: Pupils are equal, round, and reactive to light. Cardiovascular: Rate and Rhythm: Normal rate and regular rhythm. Heart sounds: No murmur heard. No friction rub. No gallop. Pulmonary: Effort: Pulmonary effort is normal. Breath sounds: Normal breath sounds. No wheezing, rhonchi or rales. Abdominal: General: Bowel sounds are normal. There is no distension. Palpations: Abdomen is soft. Tenderness: There is no abdominal tenderness. There is no guarding or rebound. Musculoskeletal: Cervical back: Neck supple. Right lower leg: No edema. Left lower leg: No edema. Neurological: Mental Status: She is alert. Assessment/Plan Problem List Items Addressed This Visit Gouty arthritis No flares and continue allopurinol. Class 3 severe obesity due to excess calories with serious comorbidity and body mass index (BMI) of 40.0 to 44.9 in adult (CMS/HCC) Patient overweight and difficult time losing weight. Discussed proper diet and regular aerobic exercise. Recommend Weight Watchers and need to limit calories and smaller portions. Need to increase activity and regular aerobic exercise several days a week for 30 minutes at a time. Interested in adipex and warned of potential cardiac side effects. Script written for first month and will need to recheck weight in 1 month. OARRS reviewed. Continue medications as prescribed. Relevant Medications phentermine (Adipex-P) 37.5 MG tablet Chronic rhinosinusitis Continued symptoms and treat with prednisone. Start singulair. Relevant Medications predniSONE (Deltasone) 50 MG tablet montelukast (Singulair) 10 MG tablet Adult hypothyroidism (CMS/HCC) Not on medication and resume. Repeat labs in 6 weeks. Relevant Medications levothyroxine (Synthroid) 75 MCG tablet Calculus of gallbladder without cholecystitis without obstruction Continued pain and refer to surgeon. Relevant Orders Ambulatory referral to General Surgery Hiatal hernia with GERD and esophagitis - Primary Start protonix. Relevant Medications pantoprazole (Protonix) 40 MG EC tablet documented in this encounter [facility] 06-10-2024 History of Present illness Narrative Associated Problem(s): MDD (major depressive disorder), single episode, mild (HCC) (CMS/HCC) Occasional symptoms but tolerable without medication and monitor. Associated Problem(s): Hiatal hernia with GERD and esophagitis Start protonix. Associated Problem(s): Gouty arthritis No flares and continue allopurinol. Associated Problem(s): MARIELOS (generalized anxiety disorder) ([facility]) Occasional symptoms but tolerable without medication and monitor. Associated Problem(s): Class 3 severe obesity due to excess calories with serious comorbidity and body mass index (BMI) of 40.0 to 44.9 in adult (CMS/HCC) Patient overweight and difficult time losing weight. Discussed proper diet and regular aerobic exercise. Recommend Weight Watchers and need to limit calories and smaller portions. Need to increase activity and regular aerobic exercise several days a week for 30 minutes at a time. Interested in adipex and warned of potential cardiac side effects. Script written for first month and will need to recheck weight in 1 month. OARRS reviewed. Continue medications as prescribed. Associated Problem(s): Calculus of gallbladder without cholecystitis without obstruction Continued pain and return to surgeon. Associated Problem(s): Adult hypothyroidism ([facility]) Repeat labs. Images from the original note were not included. Subjective Patient ID: Armando Mcrae is a 24 y.o. female who presents for Follow-up (3m). Follow up abdominal pain, depression, anxiety, gout, and weight. No change in abdominal pain. Initially seen by surgeon and wanted to remove gallbladder but insurance was not accepted at hospital. Seen different surgeon and had EGD which showed hiatal hernia with gastritis. Given PPI but no change. Continued pain. Now new insurance and wants to return to original surgeon. Gout controlled with allopurinol. No joint pain or stiffness. No swelling or erythema. Mood stable without medication. Occasional symptoms and at times down, sad, and no motivation. Anxiety stable. Not as stressed out or overwhelmed. Not as nervous or worry as much. Not as aguilera or irritable. Feels like doing well without medication. Weight unchanged and wants to resume adipex. Review of Systems Respiratory: Negative for cough, shortness of breath and wheezing. Cardiovascular: Negative for chest pain and palpitations. Gastrointestinal: Negative for abdominal pain, diarrhea, nausea and vomiting. Genitourinary: Negative for dysuria. Objective Physical Exam Constitutional: General: She is not in acute distress. Appearance: Normal appearance. HENT: Head: Normocephalic. Right Ear: Tympanic membrane normal. Left Ear: Tympanic membrane normal. Eyes: Extraocular Movements: Extraocular movements intact. Pupils: Pupils are equal, round, and reactive to light. Cardiovascular: Rate and Rhythm: Normal rate and regular rhythm. Heart sounds: No murmur heard. No friction rub. No gallop. Pulmonary: Effort: Pulmonary effort is normal. Breath sounds: Normal breath sounds. No wheezing, rhonchi or rales. Abdominal: General: Bowel sounds are normal. There is no distension. Palpations: Abdomen is soft. Tenderness: There is no abdominal tenderness. There is no guarding or rebound. Musculoskeletal: Cervical back: Neck supple. Right lower leg: No edema. Left lower leg: No edema. Neurological: Mental Status: She is alert. Assessment/Plan Problem List Items Addressed This Visit MARIELOS (generalized anxiety disorder) (CMS/[facility]) Occasional symptoms but tolerable without medication and monitor. Gouty arthritis No flares and continue allopurinol. Relevant Medications allopurinol (Zyloprim) 300 MG tablet MDD (major depressive disorder), single episode, mild (HCC) (CMS/HCC) Occasional symptoms but tolerable without medication and monitor. Class 3 severe obesity due to excess calories with serious comorbidity and body mass index (BMI) of 40.0 to 44.9 in adult (CMS/HCC) Patient overweight and difficult time losing weight. Discussed proper diet and regular aerobic exercise. Recommend Weight Watchers and need to limit calories and smaller portions. Need to increase activity and regular aerobic exercise several days a week for 30 minutes at a time. Interested in adipex and warned of potential cardiac side effects. Script written for first month and will need to recheck weight in 1 month. OARRS reviewed. Continue medications as prescribed. Relevant Medications phentermine (Adipex-P) 37.5 MG tablet Vitamin D deficiency Relevant Medications cholecalciferol (Vitamin D-3) 50 MCG (1999) tablet Adult hypothyroidism (CMS/HCC) Repeat labs. Relevant Orders TSH T4, free Calculus of gallbladder without cholecystitis without obstruction Continued pain and return to surgeon. Hiatal hernia with GERD and esophagitis - Primary Start protonix. Relevant Medications pantoprazole (Protonix) 40 MG EC tablet Other Visit Diagnoses Upper respiratory tract infection, unspecified type Relevant Medications levoFLOXacin (Levaquin) 750 MG tablet documented in this encounter [facility] 03-08-2024 Note Progress Note-Physic tom Patient: ARMANDO MCRAE Age: 24 years Sex: Female : 2000 Associated Diagnoses: None Author: Lynn BANSAL, KD, Queen Suha Postoperative Information Postoperative disposition: Postoperative disposition: To PACU. Optimetrix number: Optimetrix number [id number]. Anesthetic utilized: General. Physical Examination Vital Signs 03/08/2024 9:35 EDT Heart Rate Monitored 75 bpm Respiratory Rate Monitored 18 br/min Systolic Blood Pressure 117 mmHg Diastolic Blood Pressure 85 mmHg Mean Arterial Pressure, Cuff 96 mmHg SpO2 93 % 03/08/2024 9:10 EDT Heart Rate Monitored 74 bpm Respiratory Rate Monitored 23 br/min Systolic Blood Pressure 129 mmHg Diastolic Blood Pressure 86 mmHg Mean Arterial Pressure, Cuff 100 mmHg SpO2 98 % 03/08/2024 9:06 EDT Temperature Temporal Artery 36.6 DegC Heart Rate Monitored 71 bpm Respiratory Rate Monitored 23 br/min Systolic Blood Pressure 119 mmHg Diastolic Blood Pressure 59 mmHg Mean Arterial Pressure, Cuff 79 mmHg SpO2 97 % Pain Assessment: pain controlled. General: Awake, Alert, pt able to ambulate with asst. pt able to void w/o diff. Respiratory: Adequate air exchange. Cardiovascular: Normal peripheral perfusion. Neurological: Normal sensory function. Assessment Anesthetic outcome No anesthetic complications noted. Review / Management Condition: Stable. Plan Transfer/Discharge: Transfer/Discharge Discharge when meets criteria ( To home ). [facility] Comment on above: Result Comment: Elec tronically Signed By: Lynn BANSAL, KD, Queen Suha\.br\Date and Time Signed: 03/08/24 15:13 EDT 03-08-2024 Note Patient Education - Text Gastroenterology Hiatal Hernia A hiatal hernia occurs when part of the stomach slides above the muscle that separates the abdomen from the chest (diaphragm). A person can be born with a hiatal hernia (congenital), or it may develop over time. In almost all cases of hiatal hernia, only the top part of the stomach pushes through the diaphragm. Many people have a hiatal hernia with no symptoms. The larger the hernia, the more likely it is that you will have symptoms. In some cases, a hiatal hernia allows stomach acid to flow back into the tube that carries food from your mouth to your stomach (esophagus). This may cause heartburn symptoms. The development of heartburn symptoms may mean that you have a condition called gastroesophageal reflux disease (GERD). What are the causes? This condition is caused by a weakness in the opening (hiatus) where the esophagus passes through the diaphragm to attach to the upper part of the stomach. A person may be born with a weakness in the hiatus, or a weakness can develop over time. What increases the risk? This condition is more likely to develop in: ? Older people. Age is a major risk factor for a hiatal hernia, especially if you are over the age of 50. ? women. ? People who are overweight. ? People who have frequent constipation. What are the signs or symptoms? Symptoms of this condition usually develop in the form of GERD symptoms. Symptoms include: ? Heartburn. ? Upset stomach (indigestion). ? Trouble swallowing. ? Coughing or wheezing. Wheezing is making high-pitched whistling sounds when you breathe. ? Sore throat. ? Chest pain. ? Nausea and vomiting. How is this diagnosed? This condition may be diagnosed during testing for GERD. Tests that may be done include: ? X-rays of your stomach or chest. ? An upper gastrointestinal (GI) series. This is an X-ray exam of your GI tract that is taken after you swallow a chalky liquid that shows up clearly on the X-ray. ? Endoscopy. This is a procedure to look into your stomach using a thin, flexible tube that has a tiny camera and light on the end of it. How is this treated? This condition may be treated by: ? Dietary and lifestyle changes to help reduce GERD symptoms. ? Medicines. These may include: ? Janq-yoi-nceolmg antacids. ? Medicines that make your stomach empty more quickly. ? Medicines that block the production of stomach acid (H2 blockers). ? Stronger medicines to reduce stomach acid (proton pump inhibitors). ? Surgery to repair the hernia, if other treatments are not helping. If you have no symptoms, you may not need treatment. Follow these instructions at home: Lifestyle and activity ? Do not use any products that contain nicotine or tobacco. These products include cigarettes, chewing tobacco, and vaping devices, such as e-cigarettes. If you need help quitting, ask your health care provider. ? Try to achieve and maintain a healthy body weight. ? Avoid putting pressure on your abdomen. Anything that puts pressure on your abdomen increases the amount of acid that may be pushed up into your esophagus. ? Avoid bending over, especially after eating. ? Raise the head of your bed by putting blocks under the legs. This keeps your head and esophagus higher than your stomach. ? Do not wear tight clothing around your chest or stomach. ? Try not to strain when having a bowel movement, when urinating, or when lifting heavy objects. Eating and drinking ? Avoid foods that can worsen GERD symptoms. These may include: ? Fatty foods, like fried foods. ? Deuel fruits, like oranges or lemon. ? Other foods and drinks that contain acid, like orange juice or tomatoes. ? Spicy food. ? Chocolate. ? Eat frequent small meals instead of three large meals a day. This helps prevent your stomach from getting too full. ? Eat slowly. ? Do not lie down right after eating. ? Do not eat 1?2 hours before bed. ? Do not drink beverages with caffeine. These include cola, coffee, cocoa, and tea. ? Do not drink alcohol. General instructions ? Take qzpp-vpg-iormnba and prescription medicines only as told by your health care provider. ? Keep all follow-up visits. Your health care provider will want to check that any new prescribed medicines are helping your symptoms. Contact a health care provider if: ? Your symptoms are not controlled with medicines or lifestyle changes. ? You are having trouble swallowing. ? You have coughing or wheezing that will not go away. ? Your pain is getting worse. ? Your pain spreads to your arms, neck, jaw, teeth, or back. ? You feel nauseous or you vomit. Get help right away if: ? You have shortness of breath. ? You vomit blood. ? You have bright red blood in your stools. ? You have black, tarry stools. These symptoms may be an emergency. Get help right away. Call 911. ? Do not wait to see if the symptoms will go (more content not included)... [facility] 03-08-2024 Note History and Physical Patient: ARMANDO MCRAE Age: 24 years Sex: Female : 2000 Associated Diagnoses: None Author: Willie ALEX MD Subjective no changes to H & P [facility] Comment on above: Result Comment: Elec tronically Signed By: Willie ALEX MD\.br\Date and Time Signed: 03/08/24 09:08 EDT 03-08-2024 Note Progress Note-Physic tom Patient: ARMANDO MCRAE Age: 24 years Sex: Female : 2000 Associated Diagnoses: None Author: Lynn BANSAL, Queen Diya YI. Preoperative Information Anesthesia Preop Info: Time patient last ate or drank 03/07/2024 23:00:00. Anesthesia history: Patient history: None. Family history+: None. Informed consent: Including risks, benefits, and alternatives related to the, Signed by patient. Re-evaluation prior to induction: Initial evaluation reviewed: No significant change. Review of Systems Eye: Negative except as documented in history of present illness. Ear/Nose/Mouth/Throat: Negative except as documented in history of present illness. Respiratory: Negative except as documented in history of present illness. Cardiovascular: Negative except as documented in history of present illness. Gastrointestinal: Negative except as documented in history of present illness. Genitourinary: Negative except as documented in history of present illness. Hematology/Lymphatics: Negative except as documented in history of present illness. Endocrine: Negative except as documented in history of present illness. Musculoskeletal: Negative except as documented in history of present illness. Neurologic: Negative except as documented in history of present illness. Health Status Allergies: Nonallergic Reactions (Selected) Severity Not Documented Naproxen- Gastrointestinal upset. TraMADol- Nausea., Allergies (2) Active Severity Reaction traMADol Nausea naproxen Gastrointestinal upset Current medications: (Selected) Inpatient Medications Ordered Sodium Chloride 0.9% IV Tosha 1000 mL 1,000 mL: 1,000 mL, IV, 20 mL/hr, Routine, Start date 03/08/24 6:40:00 EDT, 50 hour(s), Total volume (mL): 1,000, 113.9 kg, 2.28, m2 Documented Medications Documented Adipex-P 37.5 mg Tab: 37.5 mg = 1 tab(s), Oral, Daily, Refills(s) 0 Nexplanon: Refills(s) 0 Zoloft 25 mg Tab: 25 mg = 1 tab(s), Oral, Daily, Refills(s) 0 allopurinol 300 mg Tab: 300 mg = 1 tab(s), Oral, Daily, Refills(s) 0 alprazolam 0.5 mg Tab: 0.5 mg = 1 tab(s), Oral, TID, PRN for anxiety, Refills(s) 0 levothyroxine 75 mcg (0.075 mg) Tab: 75 mcg = 1 tab(s), Oral, Daily, Refills(s) 0, Home Medications (6) Active Adipex-P 37.5 mg Tab 37.5 mg = 1 tab(s), Oral, Daily allopurinol 300 mg Tab 300 mg = 1 tab(s), Oral, Daily alprazolam 0.5 mg Tab 0.5 mg = 1 tab(s), PRN, Oral, TID levothyroxine 75 mcg (0.075 mg) Tab 75 mcg = 1 tab(s), Oral, Daily Nexplanon Zoloft 25 mg Tab 25 mg = 1 tab(s), Oral, Daily , Medications (1) Active Scheduled: (0) Continuous: (1) Sodium Chloride 0.9% 1,000 mL 1,000 mL, IV, 20 mL/hr PRN: (0) Problem list: All Problems Benign paroxysmal positional vertigo / SNOMED CT 751392128 / Confirmed Acne vulgaris / SNOMED CT 727584741 / Confirmed MARIELOS (generalized anxiety disorder) / SNOMED CT 26635428 / Confirmed Seasonal allergic reaction / SNOMED CT 0280687720 / Confirmed MDD (major depressive disorder) / SNOMED CT 5510478614 / Confirmed Insomnia / SNOMED CT 128441599 / Confirmed Gouty arthritis / SNOMED CT 036448363 / Confirmed Hypothyroidism / SNOMED CT 86211587 / Confirmed Morbid obesity / SNOMED CT 736304281 / Confirmed BMI 40.0-44.9, adult / SNOMED CT 2674073868 / Confirmed Epigastric pain / SNOMED CT 696522656 / Confirmed Right upper quadrant pain / SNOMED CT 035946858 / Confirmed Cholelithiasis / SNOMED CT 718475973 / Confirmed Resolved: None / SNOMED CT 875976901, Active Problems (13) Acne vulgaris Benign paroxysmal positional vertigo BMI 40.0-44.9, adult Cholelithiasis Epigastric pain MARIELOS (generalized anxiety disorder) Gouty arthritis Hypothyroidism Insomnia MDD (major depressive disorder) Morbid obesity Right upper quadrant pain Seasonal allergic reaction Histories Past Medical History: Resolved None ([id number]): Resolved. Family History: Asthma Brother Procedure history: None ([id number]). Social History Social & Psychosocial Habits Alcohol 02/22/2024 Risk Assessment: Denies Alcohol Use Substance Abuse 02/22/2024 Risk Assessment: Denies Substance Abuse Tobacco 02/22/2024 Risk Assessment: Denies Tobacco Use 02/22/2024 Tobacco Use: Former smoker, quit more Smokeless tobacco use: Smokeless tobacco user wi Type: Cigarettes, Vaping Started at age: 20.0 Years Stopped at age: 21 Years . Physical Examination No qualifying data available Airway: Mallampati classification: III (soft palate, base of uvula visible). Respiratory: Respirations are non-labored. Cardiovascular: Regular rhythm. Gastrointestinal: Non-distended. Review / Management Results review: No qualifying data available . Plan [place] [employer] (ASA) physical status classification: Class III. Anesthetic Preoperative Plan: Anesthesia General. [facility] Comment on above: Result Comment: Elec tronically Signed By: Lynn BANSAL, KD, Queen Suha\.br\Date and Time Signed: 03/08/24 08:21 EDT 03-04-2024 History of Present illness Narrative Associated Problem(s): MARIELOS (generalized anxiety disorder) (CMS/HCC) Symptoms worse without medication and will need to resume as soon as GI symptoms improved. Associated Problem(s): MDD (major depressive disorder), single episode, mild (HCC) (CMS/HCC) Symptoms worse without medication and will need to resume as soon as GI symptoms improved. Associated Problem(s): Calculus of gallbladder without cholecystitis without obstruction Follow with surgeon. Associated Problem(s): Right upper quadrant abdominal pain Continued symptoms and follow up with surgeon for testing. Images from the original note were not included. Subjective Patient ID: Armando Mcrae is a 24 y.o. female who presents for Follow-up (2m f/u). Follow up abdominal pain. Patient unchanged today. Continues to have pain in RUQ and right flank. Severe pain after eating and decreased PO. Seen by surgeon who wanted to take out gallbladder but insurance didn't cover. Seen another surgeon and not sure if gallbladder causing symptoms. Scheduled for EGD and CT. Pain worse with activity. Not able to twist, bend, or push due to pain. Severe nausea and hard to eat. Not able to take any medication due to GI symptoms. Depression worse without meds. Down, sad, and no motivation. Increased anxiety. Severe stress and not handling well. Nervous and worry all the time. Stressed out and overwhelmed. Thought racing and hard to clear mind. Aguilera, irritable and snapping at others. Easily upset and overreact. Review of Systems Respiratory: Negative for cough, shortness of breath and wheezing. Cardiovascular: Negative for chest pain and palpitations. Gastrointestinal: Negative for abdominal pain, diarrhea, nausea and vomiting. Genitourinary: Negative for dysuria. Objective Physical Exam Constitutional: General: She is not in acute distress. Appearance: Normal appearance. HENT: Head: Normocephalic. Right Ear: Tympanic membrane normal. Left Ear: Tympanic membrane normal. Eyes: Extraocular Movements: Extraocular movements intact. Pupils: Pupils are equal, round, and reactive to light. Cardiovascular: Rate and Rhythm: Normal rate and regular rhythm. Heart sounds: No murmur heard. No friction rub. No gallop. Pulmonary: Effort: Pulmonary effort is normal. Breath sounds: Normal breath sounds. No wheezing, rhonchi or rales. Abdominal: General: Bowel sounds are normal. There is no distension. Palpations: Abdomen is soft. Tenderness: There is no abdominal tenderness. There is no guarding or rebound. Musculoskeletal: Cervical back: Neck supple. Right lower leg: No edema. Left lower leg: No edema. Neurological: Mental Status: She is alert. Assessment/Plan Problem List Items Addressed This Visit MARIELOS (generalized anxiety disorder) (CMS/HCC) Symptoms worse without medication and will need to resume as soon as GI symptoms improved. MDD (major depressive disorder), single episode, mild (HCC) (CMS/HCC) Symptoms worse without medication and will need to resume as soon as GI symptoms improved. Calculus of gallbladder without cholecystitis without obstruction - Primary Follow with surgeon. Right upper quadrant abdominal pain Continued symptoms and follow up with surgeon for testing. documented in this encounter [facility] 02-26-2024 Note General Surgery Offi ce/Clinic Note Chief Complaint consultation for cholelithiasis HPI Staff 23 year old female presents on consultation from Dr. Naderer for cholelithiasis. Reports approximately 2 month history of RUQ pain. Reports pain is constant but waxes and wanes in intensity. Reports increased pain with consumption of solid foods and lying on right side. Denies nausea, vomiting or bowel changes. ABD US completed 01/18 with cholelithiasis. History of Present Illness 24 yo female with h/o hypothyroidism, MARIELOS, benign paroxysmal positional vertigo, MDD, morbid obesity, referred for 2 month h/o upper abd pain; patient reports pain began as intermittent upper ache, primarily epigastric; no triggers or relieving factors, no N/V or bowel changes, no fevers, no injury to area, no food triggers; pain now has become constant ache, epigastrium and RUQ; worse with eating any type of solid food, or with lying on right side; no h/o jaundice or pancreatitis; no NSAID use, or h/o ulcer disease, no bowel changes or melena; recent GB US with several small mobile stones, no wall thickening or ductal dilation; no abd operations or previous endoscopy; no asa or NSAID use; no tobacco use; no fmhx of GI malignancy or IBD. Review of Systems PHQ Score Initial Depression Screen Score: 0 SCORE ROS - Provider Constitutional: no fever, no sweats, no weight loss. Eyes: no glasses, no blurred vision, no visual loss. ENMT: no dentures, no hoarseness, no swallowing difficulties, no hearing loss, no ear infection(s), no nose bleeds. Cardiovascular: normal blood pressure, no chest pain, regular heartbeat, no heart murmur. Respiratory: no shortness of breath, no cough, no asthma, no wheezing. Gastrointestinal: no nausea, no vomiting, no diarrhea, no constipation, no blood in stool, no change in bowel habits, no abdominal pain, no hepatitis. Genitourinary: no kidney stones, no urine infection, no dysuria. Musculoskeletal: no pain, no weakness. Skin: no changing moles, no rash, no skin lumps. Neurologic: no seizures, no epilepsy, no headache. Psychiatric: no emotional or psychiatric problem. Heme/Lymph: no bleeding problems, no anemia, no blood clots, no transfusions. Allergy/Immunologic: no swollen lymph nodes/glands, no IV drug abuse. Other: Additional ROS info: Except as noted in the above Review of Systems and in the History of Present Illness, all other systems have been reviewed and are negative or noncontributory. Physical Exam Vitals & Measurements HR: 65(Peripheral) RR: 16 BP: 123/80 HT: 65 in HT: 165 cm WT: 113.9 kg WT: 250.58 lb BMI: 41.84 HEENT: normal conjunctiva, sclera clear, no scleral icterus, EOM intact, PERRLA, oral mucosa moist without lesions. Neck: trachea midline, no mass, symmetric, no thyromegaly or nodules, no adenopathy Respiratory: lungs CTA, respirations non labored. Cardiovascular: regular rate and rhythm, no murmur, no pedal edema or varicosities. Gastrointestinal: obese, soft, non distended, mild tenderness, epigastrium and RUQ no masses, no palpable hernias, diastasis recti yes, no hepatosplenomegaly; normal bs Lymphatic: no cervical adenopathy, no supraclavicular adenopathy. Musculoskeletal: normal gait, digits and nails without infection, nodes, cyanosis, clubbing. Skin: no rashes, no lesions, no ulcers, no subcutaneous nodules, induration. Psychiatric/Neuro: oriented to time, place, person, judgement normal, affect appropriate for age, insight intact, no focal deficits. Tests: , x-rays reviewed, review of old records completed , Discussed surgical options, risks, and possible complications with patient. Assessment/Plan 1. Epigastric pain (R10.13: Epigastric pain) pain not consistent with biliary colic, no evidence of cholecystitis or ductal dilation; will proceed with EGD under anesthesia for further evaluation; informed consent obtained. also obtain abd/pelvic ct scan and lfts/lipase; cbc. will call patient with results, she is to call sooner if problems/questions. Ordered: Basic Metabolic Panel CBC w/ Auto Diff CT Abdomen/Pelvis w/ Contrast Hepatic Function Panel Lipase Level OP Consult New/Estab Pt Moderate 40 Min 59340 2. Right upper quadrant pain (R10.11: Right upper quadrant pain) see # 1 Ordered: Basic Metabolic Panel CBC w/ Auto Diff CT Abdomen/Pelvis w/ Contrast Hepatic Function Panel Lipase Level OP Consult New/Estab Pt Moderate 40 Min 42761 3. Cholelithiasis (K80.20: Calculus of gallbladder without cholecystitis without obstruction) see # 1 Ordered: Basic Metabolic Panel CBC w/ Auto Diff CT Abdomen/Pelvis w/ Contrast Hepatic Function Panel Lipase Level OP Consult New/Estab Pt Moderate 40 Min 44475 4. Morbid obesity (E66.01: Morbid (severe) obesity due to excess calories) recommend diet and exercise. Ordered: Basic Metabolic Panel CBC w/ Auto Diff CT Abdomen/Pelvis w/ Contrast Hepatic Function Panel Lipase Level OP Consult New/Estab Pt (more content not included)... [facility] Comment on above: Result Comment: Elec tronically Signed By: EMERSON VILLASEÑOR, Willie Mckeon\Date and Time Signed: 02/26/24 16:19 EDT 01-31-2024 Telephone encounter Note Well aware of potential interactions and okay to fill [facility] 01-31-2024 Miscellaneous Notes Well aware of potential interactions and okay to fill documented in this encounter [facility] 01-31-2024 History of Present illness Narrative [facility] are not in network with patient's insurance. Will refer to Dr. Alex for [facility]. documented in this encounter [facility] 01-31-2024 History of Present illness Narrative General Surgery H&P Armando Mcrae 2000 Armando Mcrae is a 23 y.o. female presents with chief complaint of surgical consult (Pt presents today for a surgical consult. She states that she has gall stones that started about a month ago. She states that Dr. Bowen reccommended she gets her gallbladder removed. She states that she has constant pain in her abdomen and even drinking water upsets her stomach. ) Pt gives a strong history of biliary colic. No current abdominal pain right now but it is increasing daily how often the pain is and is increased after PO intake. Denies melena or hematochezia. Denies changes in bowel habits. Denies hx of excessive weight loss. Denies fevers, chills, or sweats. Denies nausea or vomiting. Reviewed her imaging with her and explained to her about a robotic assisted laparoscopic cholecystectomy. All questions and concerns answered. Pt would like to proceed with surgery. SUBJECTIVE: MEDICATIONS: ALLERGIES Current Outpatient Medications Medication Instructions allopurinol (ZYLOPRIM) 300 mg, Oral, Daily ALPRAZolam (XANAX) 0.5 mg, Oral, 3 times daily PRN cholecalciferol (VITAMIN D-3) 50 mcg, Oral, Daily HYDROcodone-acetaminophen ([place]) 5-325 MG tablet 1 tablet, Oral, 4 times daily PRN levothyroxine (SYNTHROID) 75 mcg, Oral, Daily before breakfast phentermine (ADIPEX-P) 37.5 mg, Oral, Daily before breakfast sertraline (ZOLOFT) 25 mg, Oral, Daily Allergies Allergen Reactions Tramadol GI intolerance and Nausea Only PAST MEDICAL HISTORY: SOCIAL HISTORY SURGICAL HISTORY: Past Medical History: Diagnosis Date Acne vulgaris Dysmenorrhea MARIELOS (generalized anxiety disorder) (CMS/[facility]) Gout, arthropathy Insomnia, persistent MDD (major depressive disorder), single episode, mild (HCC) (CMS/[facility]) Seasonal allergic rhinitis due to pollen Vitamin D deficiency Social History Tobacco Use Smoking status: Never Smokeless tobacco: Never History reviewed. No pertinent surgical history. Family History Problem Relation Name Age of Onset No Known Problems Mother No Known Problems Father Allergies Allergen Reactions Tramadol GI intolerance and Nausea Only History reviewed. No pertinent surgical history. Tobacco Use: Low Risk (01/31/2024) Patient History Smoking Tobacco Use: Never Smokeless Tobacco Use: Never Passive Exposure: Not on file Alcohol Use: Not on file Depression: Not on file Physical Activity: Not on file REVIEW OF SYMPTOMS: Review of Systems All other systems reviewed and are negative. 10 systems were reviewed. Positives noted above. Remainder are negative per CMS guidelines OBJECTIVE: Visit Vitals BP 118/68 Pulse 68 Resp 16 Ht 5' 5 Wt 245 lb LMP 01/12/2024 (Exact Date) SpO2 99% BMI 40.77 kg/m OB Status Having periods Smoking Status Never BSA 2.26 m Physical Exam Vitals reviewed. General: AAOx3, NAD Head: atraumatic normocephalic Neck: trachea midline. No masses or lymphadenopathy Heart: Regular rate and rhythm Lungs: equal chest rise and fall, non labored breathing Abdomen: soft, nontender, and non distended Ext: motor 5/5 all extremities with no gross deformities Psych: alert and oriented, behavior appropriate Patients RUQ US reviewed and discussed with patient ASSESSMENT AND PLAN: Assessment/Plan Diagnoses and all orders for this visit: Biliary colic Symptomatic cholelithiasis Patient informed of the risks of robotic assisted laparoscopic cholecystectomy procedure which include but not limited to bleeding, scarring, damage to nearby structures, chronic pain, wound healing issues, possible need for more procedures and risks of anesthesia. Patient understood risks and signed informed consent. Will schedule at patient's earliest convenience. If her insurance is not approved for [facility] then we will get her a referral flory to a local provider that is in network for her. Work note provided for patient stating her being seen today in clinic and her current workup that she is undergoing. Thank you, Kev Armstrong DO documented in this encounter [facility] 01-29-2024 Telephone encounter Note Referral in chart [facility] 01-29-2024 Miscellaneous Notes Referral in chart Patient would like referral to [facility] for gallstones. clm documented in this encounter [facility] 01-29-2024 Telephone encounter Note Patient would like referral to [facility] for gallstones. clm [facility] 10-11-2022 Evaluation note Encounter Date Diagnosis Assessment Notes October, Acute pain of right shoulder (ICD-10 - M25.511) October, Strain of right shoulder, initial encounter (ICD-10 - S46.911A) Shoulder sprain material was printed Drink plenty fluids, get plenty of rest. Take the prednisone as prescribed until gone. You may take Tylenol for pain as well. Consider using IcyHot your shoulder as well as applying ice to the shoulder 2-3 times a day. Follow-up with orthopedics if no improvement in 5 to 7 days. Off work today and tomorrow and [employer] Other Evaluation note* Diagnosis MDD (major depressive disorder), single episode, mild (HCC) (CMS/HCC)- Primary MARIELOS (generalized anxiety disorder) (CMS/HCC) Generalized anxiety disorder Gouty arthritis Gouty arthropathy, unspecified Seasonal allergic rhinitis due to pollen Morbid obesity due to excess calories (CMS/HCC) Vitamin D deficiency Annual physical exam Routine general medical examination at a health care facility MDD (major depressive disorder), single episode, mild (HCC) (CMS/HCC)- Primary MARIELOS (generalized anxiety disorder) (CMS/HCC) Generalized anxiety disorder Dysmenorrhea Labyrinthitis of both ears Morbid obesity due to excess calories (CMS/HCC) MDD (major depressive disorder), single episode, mild (HCC) (CMS/HCC)- Primary MARIELOS (generalized anxiety disorder) (CMS/HCC) Generalized anxiety disorder Morbid obesity due to excess calories (CMS/HCC) Dysmenorrhea Adult hypothyroidism (CMS/HCC) Unspecified hypothyroidism Vitamin D deficiency MDD (major depressive disorder), single episode, mild (HCC) (CMS/HCC)- Primary MARIELOS (generalized anxiety disorder) (CMS/HCC) Generalized anxiety disorder Gouty arthritis Gouty arthropathy, unspecified Morbid obesity due to excess calories (CMS/HCC) Vitamin D deficiency Adult hypothyroidism (CMS/HCC) Unspecified hypothyroidism Body mass index (BMI) 40.0-44.9, adult (CMS/HCC) Calculus of gallbladder without cholecystitis without obstruction- Primary Right upper quadrant abdominal pain MDD (major depressive disorder), single episode, mild (HCC) (CMS/HCC) MARIELOS (generalized anxiety disorder) (CMS/HCC) Generalized anxiety disorder Morbid obesity due to excess calories (CMS/HCC) [facility]* Diagnosis MDD (major depressive disorder), single episode, mild (HCC) (CMS/HCC)- Primary MARIELOS (generalized anxiety disorder) (CMS/HCC) Generalized anxiety disorder Gouty arthritis Gouty arthropathy, unspecified Seasonal allergic rhinitis due to pollen Morbid obesity due to excess calories ([facility]) Vitamin D deficiency Annual physical exam Routine general medical examination at a health care facility MDD (major depressive disorder), single episode, mild (HCC) ([facility])- Primary MARIELOS (generalized anxiety disorder) ([facility]) Generalized anxiety disorder Dysmenorrhea Labyrinthitis of both ears Morbid obesity due to excess calories ([facility]/HCC) MDD (major depressive disorder), single episode, mild (HCC) ([facility])- Primary MARIELOS (generalized anxiety disorder) ([facility]) Generalized anxiety disorder Morbid obesity due to excess calories ([facility]) Dysmenorrhea Adult hypothyroidism ([facility]) Unspecified hypothyroidism Vitamin D deficiency MDD (major depressive disorder), single episode, mild (HCC) ([facility])- Primary MARIELOS (generalized anxiety disorder) ([facility]) Generalized anxiety disorder Gouty arthritis Gouty arthropathy, unspecified Morbid obesity due to excess calories ([facility]) Vitamin D deficiency Adult hypothyroidism ([facility]) Unspecified hypothyroidism Body mass index (BMI) 40.0-44.9, adult ([facility]) Calculus of gallbladder without cholecystitis without obstruction- Primary Right upper quadrant abdominal pain MDD (major depressive disorder), single episode, mild (HCC) ([facility]) MARIELOS (generalized anxiety disorder) ([facility]) Generalized anxiety disorder Calculus of gallbladder without cholecystitis without obstruction [facility]* Diagnosis Calculus of gallbladder without cholecystitis without obstruction- Primary documented in [facility]* Diagnosis Calculus of gallbladder without cholecystitis without obstruction documented [facility]* Diagnosis Calculus of gallbladder without cholecystitis without obstruction- Primary documented [facility]* Diagnosis Biliary colic- Primary Calculus of gallbladder without mention of cholecystitis or obstruction Symptomatic cholelithiasis documented in this [facility]* Diagnosis Calculus of gallbladder without cholecystitis without obstruction- Primary Right upper quadrant abdominal pain MDD (major depressive disorder), single episode, mild (HCC) ([facility]/HCC) MARIELOS (generalized anxiety disorder) ([facility]) Generalized anxiety disorder [facility]* Diagnosis MDD (major depressive disorder), single episode, mild (HCC) ([facility]/HCC)- Primary MARIELOS (generalized anxiety disorder) ([facility]/HCC) Generalized anxiety disorder Gouty arthritis Gouty arthropathy, unspecified Seasonal allergic rhinitis due to pollen Morbid obesity due to excess calories ([facility]) Vitamin D deficiency Annual physical exam Routine general medical examination at a health care facility MDD (major depressive disorder), single episode, mild (HCC) ([facility])- Primary MARIELOS (generalized anxiety disorder) ([facility]) Generalized anxiety disorder Dysmenorrhea Labyrinthitis of both ears Morbid obesity due to excess calories ([facility]/HCC) MDD (major depressive disorder), single episode, mild (HCC) ([facility])- Primary MARIELOS (generalized anxiety disorder) ([facility] Generalized anxiety disorder Morbid obesity due to excess calories ([facility]) Dysmenorrhea Adult hypothyroidism ([facility]) Unspecified hypothyroidism Vitamin D deficiency MDD (major depressive disorder), single episode, mild (HCC) ([facility])- Primary MARIELOS (generalized anxiety disorder) ([facility]) Generalized anxiety disorder Gouty arthritis Gouty arthropathy, unspecified Morbid obesity due to excess calories ([facility]) Vitamin D deficiency Adult hypothyroidism ([facility]) Unspecified hypothyroidism Body mass index (BMI) 40.0-44.9, adult ([facility]) Calculus of gallbladder without cholecystitis without obstruction- Primary Right upper quadrant abdominal pain MDD (major depressive disorder), single episode, mild (HCC) ([facility]) MARIELOS (generalized anxiety disorder) ([facility]) Generalized anxiety disorder Hiatal hernia with GERD and esophagitis- Primary Gouty arthritis Gouty arthropathy, unspecified MDD (major depressive disorder), single episode, mild (HCC) ([facility]) MARIELOS (generalized anxiety disorder) ([facility]) Generalized anxiety disorder Calculus of gallbladder without cholecystitis without obstruction Class 3 severe obesity due to excess calories with serious comorbidity and body mass index (BMI) of 40.0 to 44.9 in adult ([facility]) Vitamin D deficiency Adult hypothyroidism ([facility]) Unspecified hypothyroidism Upper respiratory tract infection, unspecified type documented in this encounter [facility]* Diagnosis MDD (major depressive disorder), single episode, mild (HCC) ([facility])- Primary MARIELOS (generalized anxiety disorder) ([facility]) Generalized anxiety disorder Gouty arthritis Gouty arthropathy, unspecified Seasonal allergic rhinitis due to pollen Morbid obesity due to excess calories ([facility]) Vitamin D deficiency Annual physical exam Routine general medical examination at a health care facility MDD (major depressive disorder), single episode, mild (HCC) ([facility])- Primary MARIELOS (generalized anxiety disorder) ([facility]) Generalized anxiety disorder Dysmenorrhea Labyrinthitis of both ears Morbid obesity due to excess calories ([facility]/HCC) MDD (major depressive disorder), single episode, mild (HCC) ([facility])- Primary MARIELOS (generalized anxiety disorder) ([facility] Generalized anxiety disorder Morbid obesity due to excess calories ([facility]) Dysmenorrhea Adult hypothyroidism ([facility]) Unspecified hypothyroidism Vitamin D deficiency MDD (major depressive disorder), single episode, mild (HCC) ([facility])- Primary MARIELOS (generalized anxiety disorder) ([facility]) Generalized anxiety disorder Gouty arthritis Gouty arthropathy, unspecified Morbid obesity due to excess calories ([facility]) Vitamin D deficiency Adult hypothyroidism ([facility]) Unspecified hypothyroidism Body mass index (BMI) 40.0-44.9, adult ([facility]) Calculus of gallbladder without cholecystitis without obstruction- Primary Right upper quadrant abdominal pain MDD (major depressive disorder), single episode, mild (HCC) ([facility]) MARIELOS (generalized anxiety disorder) ([facility]) Generalized anxiety disorder Hiatal hernia with GERD and esophagitis- Primary Gouty arthritis Gouty arthropathy, unspecified MDD (major depressive disorder), single episode, mild (HCC) ([facility]) MARIELOS (generalized anxiety disorder) ([facility]) Generalized anxiety disorder Calculus of gallbladder without cholecystitis without obstruction Class 3 severe obesity due to excess calories with serious comorbidity and body mass index (BMI) of 40.0 to 44.9 in adult ([facility]) Vitamin D deficiency Adult hypothyroidism ([facility]) Unspecified hypothyroidism Upper respiratory tract infection, unspecified type Hiatal hernia with GERD and esophagitis- Primary Calculus of gallbladder without cholecystitis without obstruction Gouty arthritis Gouty arthropathy, unspecified Class 3 severe obesity due to excess calories with serious comorbidity and body mass index (BMI) of 40.0 to 44.9 in adult ([facility]) Adult hypothyroidism ([facility]) Unspecified hypothyroidism Chronic rhinosinusitis Unspecified sinusitis (chronic) documented in this encounter [facility]* Diagnosis MDD (major depressive disorder), single episode, mild (HCC) ([facility])- Primary MARIELOS (generalized anxiety disorder) ([facility]) Generalized anxiety disorder Gouty arthritis Gouty arthropathy, unspecified Seasonal allergic rhinitis due to pollen Morbid obesity due to excess calories ([facility]) Vitamin D deficiency Annual physical exam Routine general medical examination at a health care facility MDD (major depressive disorder), single episode, mild (HCC) ([facility])- Primary MARIELOS (generalized anxiety disorder) ([facility]) Generalized anxiety disorder Dysmenorrhea Labyrinthitis of both ears Morbid obesity due to excess calories ([facility]) MDD (major depressive disorder), single episode, mild (HCC) ([facility])- Primary MARIELOS (generalized anxiety disorder) ([facility]) Generalized anxiety disorder Morbid obesity due to excess calories ([facility]) Dysmenorrhea Adult hypothyroidism ([facility]) Unspecified hypothyroidism Vitamin D deficiency MDD (major depressive disorder), single episode, mild (HCC) ([facility])- Primary MARIELOS (generalized anxiety disorder) ([facility]) Generalized anxiety disorder Gouty arthritis Gouty arthropathy, unspecified Morbid obesity due to excess calories ([facility]) Vitamin D deficiency Adult hypothyroidism ([facility]) Unspecified hypothyroidism Body mass index (BMI) 40.0-44.9, adult ([facility]) Calculus of gallbladder without cholecystitis without obstruction- Primary Right upper quadrant abdominal pain MDD (major depressive disorder), single episode, mild (HCC) ([facility]) MARIELOS (generalized anxiety disorder) ([facility]) Generalized anxiety disorder Hiatal hernia with GERD and esophagitis- Primary Gouty arthritis Gouty arthropathy, unspecified MDD (major depressive disorder), single episode, mild (HCC) ([facility]) MARIELOS (generalized anxiety disorder) ([facility] Generalized anxiety disorder Calculus of gallbladder without cholecystitis without obstruction Class 3 severe obesity due to excess calories with serious comorbidity and body mass index (BMI) of 40.0 to 44.9 in adult ([facility]) Vitamin D deficiency Adult hypothyroidism ([facility]) Unspecified hypothyroidism Upper respiratory tract infection, unspecified type Hiatal hernia with GERD and esophagitis- Primary Calculus of gallbladder without cholecystitis without obstruction Gouty arthritis Gouty arthropathy, unspecified Class 3 severe obesity due to excess calories with serious comorbidity and body mass index (BMI) of 40.0 to 44.9 in adult ([facility]/HCC) Adult hypothyroidism ([facility]/HCC) Unspecified hypothyroidism Chronic rhinosinusitis Unspecified sinusitis (chronic) Calculus of gallbladder with chronic cholecystitis without obstruction documented in this encounter [facility] HealthcareEvaluation noteNo assessment information availableOhiohealth [facility] Work Phone: Evaluation note* Diagnosis MDD (major depressive disorder), single episode, mild (HCC) ([facility]/HCC)- Primary MARIELOS (generalized anxiety disorder) ([facility]/HCC) Generalized anxiety disorder Gouty arthritis Gouty arthropathy, unspecified Seasonal allergic rhinitis due to pollen Morbid obesity due to excess calories ([facility]) Vitamin D deficiency Annual physical exam Routine general medical examination at a health care facility MDD (major depressive disorder), single episode, mild (HCC) ([facility]/HCC)- Primary MARIELOS (generalized anxiety disorder) ([facility]) Generalized anxiety disorder Dysmenorrhea Labyrinthitis of both ears Morbid obesity due to excess calories ([facility]) MDD (major depressive disorder), single episode, mild (HCC) ([facility])- Primary MARIELOS (generalized anxiety disorder) ([facility]) Generalized anxiety disorder Morbid obesity due to excess calories ([facility]) Dysmenorrhea Adult hypothyroidism ([facility]) Unspecified hypothyroidism Vitamin D deficiency MDD (major depressive disorder), single episode, mild (HCC) ([facility])- Primary MARIELOS (generalized anxiety disorder) ([facility]) Generalized anxiety disorder Gouty arthritis Gouty arthropathy, unspecified Morbid obesity due to excess calories ([facility]) Vitamin D deficiency Adult hypothyroidism ([facility]) Unspecified hypothyroidism Body mass index (BMI) 40.0-44.9, adult ([facility]) Calculus of gallbladder without cholecystitis without obstruction- Primary Right upper quadrant abdominal pain MDD (major depressive disorder), single episode, mild (HCC) ([facility]/HCC) MARIELOS (generalized anxiety disorder) ([facility]) Generalized anxiety disorder Hiatal hernia with GERD and esophagitis- Primary Gouty arthritis Gouty arthropathy, unspecified MDD (major depressive disorder), single episode, mild (HCC) ([facility]/HCC) MARIELOS (generalized anxiety disorder) ([facility]/HCC) Generalized anxiety disorder Calculus of gallbladder without cholecystitis without obstruction Class 3 severe obesity due to excess calories with serious comorbidity and body mass index (BMI) of 40.0 to 44.9 in adult ([facility]) Vitamin D deficiency Adult hypothyroidism ([facility]) Unspecified hypothyroidism Upper respiratory tract infection, unspecified type Hiatal hernia with GERD and esophagitis- Primary Calculus of gallbladder without cholecystitis without obstruction Gouty arthritis Gouty arthropathy, unspecified Class 3 severe obesity due to excess calories with serious comorbidity and body mass index (BMI) of 40.0 to 44.9 in adult ([facility]) Adult hypothyroidism ([facility]) Unspecified hypothyroidism Chronic rhinosinusitis Unspecified sinusitis (chronic) MARIELOS (generalized anxiety disorder) ([facility])- Primary Generalized anxiety disorder Chronic rhinosinusitis Unspecified sinusitis (chronic) Adult hypothyroidism ([facility]) Unspecified hypothyroidism Gouty arthritis Gouty arthropathy, unspecified Hiatal hernia with GERD and esophagitis Calculus of gallbladder without cholecystitis without obstruction Class 3 severe obesity due to excess calories with serious comorbidity and body mass index (BMI) of 40.0 to 44.9 in adult ([facility]) documented in this encounter [facility]* Diagnosis MDD (major depressive disorder), single episode, mild (HCC) ([facility])- Primary MARIELOS (generalized anxiety disorder) ([facility]) Generalized anxiety disorder Gouty arthritis Gouty arthropathy, unspecified Seasonal allergic rhinitis due to pollen Morbid obesity due to excess calories ([facility]) Vitamin D deficiency Annual physical exam Routine general medical examination at a health care facility MDD (major depressive disorder), single episode, mild (HCC) ([facility])- Primary MARIELOS (generalized anxiety disorder) ([facility]) Generalized anxiety disorder Dysmenorrhea Labyrinthitis of both ears Morbid obesity due to excess calories ([facility]) MDD (major depressive disorder), single episode, mild (HCC) ([facility])- Primary MARIELOS (generalized anxiety disorder) ([facility]) Generalized anxiety disorder Morbid obesity due to excess calories ([facility]) Dysmenorrhea Adult hypothyroidism ([facility]) Unspecified hypothyroidism Vitamin D deficiency MDD (major depressive disorder), single episode, mild (HCC) ([facility])- Primary MARIELOS (generalized anxiety disorder) ([facility]) Generalized anxiety disorder Gouty arthritis Gouty arthropathy, unspecified Morbid obesity due to excess calories ([facility]) Vitamin D deficiency Adult hypothyroidism ([facility]) Unspecified hypothyroidism Body mass index (BMI) 40.0-44.9, adult ([facility]) Calculus of gallbladder without cholecystitis without obstruction- Primary Right upper quadrant abdominal pain MDD (major depressive disorder), single episode, mild (HCC) ([facility]) MARIELOS (generalized anxiety disorder) ([facility]) Generalized anxiety disorder Hiatal hernia with GERD and esophagitis- Primary Gouty arthritis Gouty arthropathy, unspecified MDD (major depressive disorder), single episode, mild (HCC) ([facility]) MARIELOS (generalized anxiety disorder) ([facility]) Generalized anxiety disorder Calculus of gallbladder without cholecystitis without obstruction Class 3 severe obesity due to excess calories with serious comorbidity and body mass index (BMI) of 40.0 to 44.9 in adult Vitamin D deficiency Adult hypothyroidism ([facility]) Unspecified hypothyroidism Upper respiratory tract infection, unspecified type Hiatal hernia with GERD and esophagitis- Primary Calculus of gallbladder without cholecystitis without obstruction Gouty arthritis Gouty arthropathy, unspecified Class 3 severe obesity due to excess calories with serious comorbidity and body mass index (BMI) of 40.0 to 44.9 in adult Adult hypothyroidism ([facility]) Unspecified hypothyroidism Chronic rhinosinusitis Unspecified sinusitis (chronic) MARIELOS (generalized anxiety disorder) ([facility])- Primary Generalized anxiety disorder Chronic rhinosinusitis Unspecified sinusitis (chronic) Adult hypothyroidism ([facility]) Unspecified hypothyroidism Gouty arthritis Gouty arthropathy, unspecified Hiatal hernia with GERD and esophagitis Calculus of gallbladder without cholecystitis without obstruction Class 3 severe obesity due to excess calories with serious comorbidity and body mass index (BMI) of 40.0 to 44.9 in adult MDD (major depressive disorder), single episode, mild (HCC) ([facility])- Primary MARIELOS (generalized anxiety disorder) ([facility]) Generalized anxiety disorder Gouty arthritis Gouty arthropathy, unspecified Hiatal hernia with GERD and esophagitis Adult hypothyroidism ([facility]) Unspecified hypothyroidism SOB (shortness of breath) Shortness of breath Vitamin D deficiency Class 3 severe obesity due to excess calories with serious comorbidity and body mass index (BMI) of 40.0 to 44.9 in adult documented in this encounter [facility]* Diagnosis MDD (major depressive disorder), single episode, mild- Primary MARIELOS (generalized anxiety disorder) Generalized anxiety disorder Gouty arthritis Gouty arthropathy, unspecified Seasonal allergic rhinitis due to pollen Morbid obesity due to excess calories ([facility]) Vitamin D deficiency Annual physical exam Routine general medical examination at a health care facility MDD (major depressive disorder), single episode, mild- Primary MARIELOS (generalized anxiety disorder) Generalized anxiety disorder Dysmenorrhea Labyrinthitis of both ears Morbid obesity due to excess calories ([facility]) MDD (major depressive disorder), single episode, mild- Primary MARIELOS (generalized anxiety disorder) Generalized anxiety disorder Morbid obesity due to excess calories ([facility]) Dysmenorrhea Adult hypothyroidism Unspecified hypothyroidism Vitamin D deficiency MDD (major depressive disorder), single episode, mild- Primary MARIELOS (generalized anxiety disorder) Generalized anxiety disorder Gouty arthritis Gouty arthropathy, unspecified Morbid obesity due to excess calories ([facility]) Vitamin D deficiency Adult hypothyroidism Unspecified hypothyroidism Body mass index (BMI) 40.0-44.9, adult ([facility]) Calculus of gallbladder without cholecystitis without obstruction- Primary Right upper quadrant abdominal pain MDD (major depressive disorder), single episode, mild MARIELOS (generalized anxiety disorder) Generalized anxiety disorder Hiatal hernia with GERD and esophagitis- Primary Gouty arthritis Gouty arthropathy, unspecified MDD (major depressive disorder), single episode, mild MARIELOS (generalized anxiety disorder) Generalized anxiety disorder Calculus of gallbladder without cholecystitis without obstruction Class 3 severe obesity due to excess calories with serious comorbidity and body mass index (BMI) of 40.0 to 44.9 in adult ([facility]) Vitamin D deficiency Adult hypothyroidism Unspecified hypothyroidism Upper respiratory tract infection, unspecified type Hiatal hernia with GERD and esophagitis- Primary Calculus of gallbladder without cholecystitis without obstruction Gouty arthritis Gouty arthropathy, unspecified Class 3 severe obesity due to excess calories with serious comorbidity and body mass index (BMI) of 40.0 to 44.9 in adult ([facility]) Adult hypothyroidism Unspecified hypothyroidism Chronic rhinosinusitis Unspecified sinusitis (chronic) MARIELOS (generalized anxiety disorder)- Primary Generalized anxiety disorder Chronic rhinosinusitis Unspecified sinusitis (chronic) Adult hypothyroidism Unspecified hypothyroidism Gouty arthritis Gouty arthropathy, unspecified Hiatal hernia with GERD and esophagitis Calculus of gallbladder without cholecystitis without obstruction Class 3 severe obesity due to excess calories with serious comorbidity and body mass index (BMI) of 40.0 to 44.9 in adult ([facility]) MDD (major depressive disorder), single episode, mild- Primary MARIELOS (generalized anxiety disorder) Generalized anxiety disorder Gouty arthritis Gouty arthropathy, unspecified Hiatal hernia with GERD and esophagitis Adult hypothyroidism Unspecified hypothyroidism SOB (shortness of breath) Shortness of breath Vitamin D deficiency Class 3 severe obesity due to excess calories with serious comorbidity and body mass index (BMI) of 40.0 to 44.9 in adult ([facility]) Generalized abdominal pain- Primary Abdominal pain, generalized Functional diarrhea MDD (major depressive disorder), single episode, mild MARIELOS (generalized anxiety disorder) Generalized anxiety disorder Hiatal hernia with GERD and esophagitis Gouty arthritis Gouty arthropathy, unspecified Class 3 severe obesity due to excess calories with serious comorbidity and body mass index (BMI) of 40.0 to 44.9 in adult ([facility]) Encounter for long-term (current) use of medications Encounter for long-term (current) use of other medications Adult hypothyroidism Unspecified hypothyroidism documented in this encounter [facility] HealthcareHistory general Narrative - Reported* Type Description Date Medical History mood swings Medical History anxiety Medical History [employer] Other Hospital Discharge instructions Additional Instructions 1. No driving if taking narcotic pain medication. 2. No lifting more than 20 pounds for 2 weeks. 3. May shower.[facility] Work Phone: Reason for referral (narrative)* Consultation (Routine) - Pending Review Specialty Diagnoses / Procedures Referred By Grabiel dickey Referred To Contact General Surgery Diagnoses Calculus of gallbladder without cholecystitis without obstruction Procedures DE OFFICE/OUTPATIENT [facility] 60 MINUTES Tino Bowen MD [address] [place] [address] Jessika Armstrong DO [address] [facility] [address] [place] [address] Referral ID Status Reason Start Date Expiration Date Visits Requested Visits Authorized [id number] Pending Review Specialty Services Required 01/29/2024 07/27/2024 1 1 [facility] for referral (narrative)* Consultation (Routine) - Pending Review Specialty Diagnoses / Procedures Referred By Contac t Referred To Contact General Surgery Diagnoses Calculus of gallbladder without cholecystitis without obstruction Procedures DE OFFICE/OUTPATIENT [facility] 60 MINUTES Tino Bowen MD [address] [place] [address] Willie Alex MD [address] [place] [address] Referral ID Status Reason Start Date Expiration Date Visits Requested Visits Authorized [id number] Pending Review Specialty Services Required 01/31/2024 07/29/2024 1 1 [facility] Summary Purpose Family History Relationship Condition Age at Onset Recorded Date/T christiano maternal grandmother Type 2 diabetes mellitus Unknown Renal failure Unknown Advance Directives Advance Directive Response Recorded Date/ Time Advance Directives No February 4:18pm Advance Directive Response Recorded Date/ Time Advance Directives No February 5:18pm Chief Complaint and Reason for Visit Chief Complaint Admit Date Cholelithiasis August 01, 2024 3:10pm Chief Complaint Admit Date Cholelithiasis August 01, 2024 3:10pm Cholelithiasis August 15, 2024 10: 25am Additional Source Comments INFORMATION SOURCE (unrecogn ized section and content) DATE CREATED AUTHOR 08/13/2022 [facility] DATE CREATED AUTHOR AUTHOR'S ORGANIZ ATION 03/21/2024 [facility] DATE CREATED AUTHOR AUTHOR'S ORGANIZ ATION 09/02/2024 [facility] DATE CREATED AUTHOR AUTHOR'S ORGANIZ ATION 11/15/2024 [facility] EPIC REASON FOR VISIT (unrecogniz ed section and content) Reason Onset Date Comments Med Refill 03/28/2024 Reason Comments Med Change Request Reason Comments surgical consult Pt presents today fo r a surgical consult. She states that she has gall stones that started about a month ago. She states that Dr. Bowen reccommended she gets her gallbladder removed. She states that she has constant pain in her abdomen and even drinking water upsets her stomach. Reason Comments Follow-up 2m f/u Reason Comments Follow-up 3m Reason Comments Follow-up 1 m Reason Comments Consult Gallbladder- Saw Dr Armstrong. Started back in Jan. Really bad stomach pains. Insurance did not cover previous surgeon. Saw another surgeon with [facility] who did an EGD and further testing. Said she just had acid reflux and did not want to do any surgery. PCP than sent patient here. Currently about 25-30min. After eats the pain flares up. No nausea or vomiting. Specialty Diagnoses / Procedures Referred By Contac t Referred To Contact General Surgery Diagnoses Calculus of gallbladder without cholecystitis without obstruction Procedures DE OFFICE/OUTPATIENT [facility] 60 MINUTES Tino Bowen MD [address] [place] [address] Phone: tel: fax: Natanael Swanson, DO [address] [address] Phone: tel: fax: Referral ID Status Reason Start Date Expiration Date V isits Requested Visits Authorized [id number] Closed Specialty Services Required 07/11/2024 01/07/2025 1 1 Reason Comments Follow-up Reason Comments Follow-up 1m f/u Care Teams (unrecognized sec tion and content) Job Boss Relationship Specialty Start Date End Date Tino Bowen MD [address] [place] [address] PCP - General Family Medicine 07/11/23 Job Boss Relationship Specialty Start Date End Date Tino Bowen MD [address] [place] [address] PCP - General Family Medicine 07/11/23 Job Boss Relationship Specialty Start Date End Date Tino Bowen MD [address] [place] [address] PCP - General Family Medicine 07/11/23 Job Boss Relationship Specialty Start Date End Date Naderer, Tino, MD [address] [place] [address] PCP - General Family Medicine 07/11/23 Job Boss Relationship Specialty Start Date End Date Tino Bowen MD [address] [place] [address] PCP - General Family Medicine 07/11/23 Job Boss Relationship Specialty Start Date End Date Tino Bowen MD [address] [place] [address] PCP - General Family Medicine 07/11/23 Job Boss Relationship Specialty Start Date End Date Tino Bowen MD [address] [place] [address] PCP - General Family Medicine 07/11/23 Job Boss Relationship Specialty Start Date End Date Tino Bowen MD [address] [place] [address] PCP - General Family Medicine 07/11/23 Job Boss Relationship Specialty Start Date End Date Tino Bowen MD [address] [place] [address] PCP - General Family Medicine 07/11/23 Job Boss Relationship Specialty Start Date End Date Tino Bowen MD [address] [place] [address] PCP - General Family Medicine 07/11/23 Job Boss Relationship Specialty Start Date End Date Tino Bowen MD [address] [place] [phone] PCP - General Family Medicine 07/11/23 Job Boss Relationship Specialty Start Date End Date Tino Bowen MD [address] [place] [address] PCP - General Family Medicine 07/11/23 Job Boss Relationship Specialty Start Date End Date Tino Bowen MD [address] [place] [address] PCP - General Family Medicine 07/11/23 Team Status: Active Member Role Status Dates Tino Bowen MD Primary Care Provider Active Team Status: Inactive Member Role Status Dates Mark Perry MD Attending Provider Active Sta rt: August 01, 2024 End: August 01, 2024 Tino Bowen MD Primary Care Provider Active S tart: August 01, 2024 End: August 01, 2024 Job Boss Relationship Specialty Start Date End Date Tino Bowen MD [address] [place] [address] PCP - General Family Medicine 07/11/23 Job Boss Relationship Specialty Start Date End Date Tino Bowen MD [address] [place] [address] PCP - General Family Medicine 07/11/23 Job Boss Relationship Specialty Start Date End Date Tino Bowen MD [address] [place] [address] PCP - General Family Medicine 07/11/23 Job Boss Relationship Specialty Start Date End Date Tino Bowen MD [address] [place] [address] PCP - General Family Medicine 07/11/23 Team Status: Inactive Member Role Status Dates Mark Perry MD Attending Provider Active Sta rt: August 15, 2024 End: August 15, 2024 Tino Bowen MD Primary Care Provider Active S tart: August 15, 2024 End: August 15, 2024 Job Boss Relationship Specialty Start Date End Date Tino Bowen MD [address] [place] [address] PCP - General Family Medicine 07/11/23 Tino Bowen MD [address] [place] [address] PCP - [employer] 09/03/24 Job Boss Relationship Specialty Start Date End Date Tino Bowen MD [address] [place] [address] PCP - General Family Medicine 07/11/23 Tino Bowen MD [address] [place] [address] PCP - [employer] 09/03/24 Job Boss Relationship Specialty Start Date End Date Tino Bowen MD [address] [place] [address] PCP - General Family Medicine 07/11/23 Tino Bowen MD [address] [place] [address] PCP - [employer] 09/03/24 Job Boss Relationship Specialty Start Date End Date Naderer, Tino, MD [address] [place] [address] PCP - General Family Medicine 07/11/23 Tino Bowen MD [address] [place] [address] PCP - [facility] 09/03/24 Goals (unrecognized section and content) Goals may be documented in a n alternate section FOR RECORDS PERTAINING TO PATIENTS WHO ARE OR HAVE BEEN ENROLLED IN A CHEMICAL DEPENDENCY/SUBSTANCEABUSE PROGRAM, SOME INFORMATION MAY BE OMITTED. This clinical summary was aggregated from multiple sources. Caution should be exercised in using it in the provision of clinical care. This summary normalizes information from multiple sources, and as a consequence, information in this document may materially change the coding, format and clinical context of patient data. In addition, data may be omitted in some cases. CLINICAL DECISIONS SHOULD BE BASED ON THE PRIMARY CLINICAL RECORDS. [employer] [facility] provides no warranty or guarantee of the accuracy or completeness of information in this document.
[2024-12-25 11:59] LABS: Hematocrit 40.2 % (36.0-48.0); Hemoglobin 13.4 g/dL (12.0-16.0); Immature Granulocytes Abs Auto 0.04 10^3/uL (0.00-0.03); Immature Granulocytes Pct Auto 0.3 % (0.0-0.5); Lymphocytes Absolute Auto 3.4 10^3/uL (1.2-3.8); Mean Corpuscular HGB Conc 33.3 g/dL (29.9-35.2); Mean Corpuscular Hemoglobin 27.4 pg (26.7-34.0); Mean Corpuscular Volume 82.2 fL (81.0-99.0); Platelet Count 293 10^3/uL (150-450); Red Blood Count 4.89 10^6/uL (4.20-5.40); White Blood Count 12.6 10^3/uL (4.0-11.0)
[2024-12-25 13:35] LABS: Alanine Aminotransferase 51 U/L (14-59); Albumin Globulin Ratio 0.9; Albumin Level 3.6 g/dL (3.4-5.0); Alkaline Phosphatase 82 U/L (46-116); Amylase 41 U/L (25-115); Anion Gap 12.7; Aspartate Amino Transferase 25 U/L (15-37); Blood Urea Nitrogen 14.0 mg/dL (7.0-18.0); Calcium 9.2 mg/dL (8.5-10.1); Carbon Dioxide 26.7 mmol/L (21.0-32.0); Chloride 103 mmol/L (98-107); Cholesterol 121 mg/dL (<=200); Estimated GFR (African America >60 (>=60 mL/min/1.73m^2); Estimated GFR (Non-African Ame >60 (>=60 mL/min/1.73m^2); Globulin 4.1 g/dL; Glucose 109 mg/dL (74-106); HDL Cholesterol 40 mg/dL (40-60); Lipase 27.0 U/L (16.0-77.0); Potassium 3.4 mmol/L (3.5-5.1); Sodium 139 mmol/L (136-145); Thyroid Stimulating Hormone 3.974 uIU/mL (0.358-3.740); Total Protein 7.7 g/dL (6.4-8.2); Triglycerides 122 mg/dL (<=150); VLDL CHOLESTEROL 24.4 mg/dL
== END 2024-12-25 11:25 | disposition home or self-care (01) ==
LOC: LAB 11:25
PROVIDERS: PCP Family Medicine; Visit Provider Family Medicine
DX: R10.84 Generalized abdominal pain (principal); E66.813 Obesity, class 3; E66.01 Morbid (severe) obesity due to excess calories; Z68.41 Body mass index [BMI] 40.0-44.9, adult; Z79.899 Other long term (current) drug therapy; E03.9 Hypothyroidism, unspecified
CPT/HCPCS: 36415; 80048; 80061; 80076; 82150; 83036; 83690; 84439; 84443; 85025

== ENCOUNTER 2025-05-16 09:50 | Outpatient (OUT) | payer BC, SELFPAY ==
--- OUTSIDE RECORDS SUMMARY | 2025-05-09 04:39 | XMS_ITS | Continuity of Care Document ---
Author Organization [facility] Address [address] [place] [address] Phone Care Team Providers Care Net Web Application Developer Name Role Phone Tino Lagos MD Primary Care Provider Tino Lagos MD Attending Provider Care Teams Patient Care Team Team Status: Active Member Role/Relationship Status Dates Tino Lagos MD Primary Care Provider Active Patient Care Team Team Status: Inactive Member Role/Relationship Status Dates Tino Lagos MD Primary Care Provider Active S tart: May 09, 2025 End: May 09, 2025Mar TIMA Lagosttending ProviderActiveStart: May 09, 2025 End: May 09, 2025 Chief Complaint and Reason for Visit Chief Complaint Admit Date 3m May 09, 2025 8 :52am Allergies, Adverse Reactions, Alerts Allergen Type Severity Reaction Last Updated Verified Status tramadol Adverse Reaction Unknown Gastrointestinal Upset May 09, 2025 9:09am Yes Active Social History Smoking Status Status Start Date End Date Date of Observa tion Never smoked tobacco (finding) August 15, 2024 10:51am Observation Status Observation Response Date of Response Legal Sex Female (finding) Sex Assigned At BirthFemaleSeptember 1999 Family History Relationship Condition Age at Onset Recorded Date/T christiano maternal grandmother Type 2 diabetes mellitus Unknown Renal failureUnknown Problems Active Problems Problem Diagnosis/Recorded Date Onset Date Stat us Class 3 severe obesity due t o excess calories with serious comorbidity and body mass index (BMI) of 40.0 to 44.9 in adult February 05, 2025 8:03am Unknown Active Generalized anxiety disorder August 01, 2024 3:43p m Unknown Active Dysmenorrhea February 04, 2025 1:47pm Unknown A ctive Gouty arthritis August 01, 2024 3:42pm Unknown Active Adult hypothyroidism February 05, 2025 8:01am Unknow n Active MDD (major depressive disord er), single episode, mild February 05, 2025 8:02am Unknown Active Hiatal hernia with GERD and esophagitis February 04, 2025 1:49pm Unknown Active Chronic rhinosinusitis February 05, 2025 8:02am Unkn own Active Vitamin D deficiency February 04, 2025 1:49pm Unknow n Active Inactive/Resolved Problems Problem Diagnosis/Recorded Date Onset Date Stat us 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 body mass index (BMI) of 40.0 to 44.9 in adult February 04, 2025 1:47pm Unknown Re solved Other acute postprocedural pain August 15, 2024 11:53 am Unknown Resolved SOB (shortness of breath) February 04, 2025 1:49pm U nknown Resolved Generalized abdominal pain February 05, 2025 8:01am Unknown Resolved Insomnia due to mental condition February 05, 2025 8 :02am Unknown Resolved Medications Medication Status Dose Units Route Directions Qty Days Refills S tart Date Stop Date End Date Reason(s) Instructions Adherence Albuterol Sulfate 90 mcg/actuation HFA aerosol inhaler Active 2 PUFF INHALATION Every 4 hours a s needed for wheezing August 01, 2024 12:00amUnknownAllopurinol 300 mg wwthznCqyedk891CYHSTeslg August 01, 2024 12:00amFreeTextSig: TAKE 1 TABLET BY MOUTH EVERY DAY Oral; Note: Source Status: Taking; Refills: 2; Qty: 30 Each; Provider: JESSI HOPE Complies with drug therapyCholecalciferol (Vitamin D3) (Vitamin D3) 50 mcg (2,000 unit) mzqgxkUrsbdc51HMRSRYhxxaXtepiwzi 2024 12:00amComplies with drug therapyLevothyroxine 75 mcg vwwelcYiykar15QCWHSKhzpxIcqwxkno 2024 12:00amComplies with drug therapyMontelukast 10 mg kdolkpUhwgxd95WRIOWxqoi August 01, 2024 12:00amComplies with drug therapyPantoprazole 40 mg tablet,delayed release (DR/EC)Gslksqqganse10GLFTJgozy dailyFebruary 2024 12:00amSept2024 8:25amPhentermine 37.5 mg cdtivfAxwbuqdtgmqd56.5MGPO DailyFebr2024 12:00amSept2024 8:18amLorazepam 0.5 mg tabletDiscontinued0.5MGPOThree times daily as needed for anxietyFebruary 2024 12:00amSept2024 7:39amFreeTextSig: TAKE 1 TABLET BY MOUTH THREE TIMES A DAY NEEDED Oral; Note: Source Status: Taking; Refills: 0; Qty: 30 Each; Provider: JESSI MARCHydroxyzine Hcl 25 mg ihsxffEddxjw50SHMQQlbm times daily as needed for anxietyFebr2024 12:00amFreeTextSig: TAKE 1 TABLET BY MOUTH FOUR TIMES A DAY NEEDED Oral; Note: Source Status: Taking; Refills: 1; Qty: 60 Each; Provider: JESSI HOPEComplies with drug therapyMultivitamin (Daily Multi-Vitamin) mfmgsyOfgnzp1JQNSQQfwvbSnzrb 2024 11:00pmComplies with drug therapyHydrocodone-Acetaminophen 5-325 mg urfppqNiycbbjqvewk0PCIWJW2N as needed for fqib3897Dmkzq 2024Sept2024 7:38amOther acute postprocedural pain Other acute postprocedural painSertraline 50 mg wiyfzoLclcwl80DUMPXvpubQtgfammch 1st, 2025 11:00pmComplies with drug therapyCholestyramine (With Sugar) (Questran) 4 gram powderDiscontinuedEACHPOTwice dailySept2024 11:00pm February 05, 2025 8:18amBacillus Coagulans-Inulin 1 billion-250 cell-mg capsuleActiveCAPPODailySept2024 11:00pmUnknownAlprazolam (Xanax) 0.5 mg tabletActive0.5MGPOThree times dailySept2024 11:00pmComplies with drug therapyEsomeprazole Magnesium (Nexium) 40 mg capsule,delayed release(DR/EC) Dnqwmouhxleo62QLGIToadj465Keoelcbeh 2nd, 2025 11:00pmSept2024 2:28pm Esomeprazole Magnesium (Nexium) 40 mg capsule,delayed release(DR/EC)Discontinued 51MAASWayns113Acdvahtog 3rd, 2025 2:28pmDece2024 9:10am Immunizations Immunization Event Date Not Given Reason Dose Number 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 [employer] Lot Number Reason(s) Given Vaccine Information Statement (VIS) Detail Administration Location COVID-19 mRNA-1273 (Moderna) November 19, 2020 COVID-19 mRNA-1273 (Moderna)December 17, 2020 Medical Equipment Device Date Implanted Device Details contraceptive implant January 18, 2024 Vital Signs Vital Reading Result Reference Range Collection Date/Time Height 64 [in_i] May 09, 2025 9:80zmJbtrzq584.57 kgce2024 9:08amBody Ltjjelyjbom05.9 [degF]97.6-99.0May 09, 2025 9:08amHeart Rate87 /qon13-113 May 09, 2025 9:08amRespiratory rate20 /wjy67-69XdopnswpMay 09, 2025 9:08am Oxygen saturation by Pulse qmadlgne24 %95-100May 09, 2025 9:08amBP Tqpdqbvf077 mm[Hg]100-140May 09, 2025 9:08amBP Obxzoctik99 mm[Hg]60-100 May 09, 2025 9:08amBMI (Body Mass Index)44.1 kg/y5VqaorzfrMay 09, 2025 9:08am Advance Directives Advance Directive Response Recorded Date/ Time Advance Directives No February 4:18pm Insurance Providers Guarantor Adriana Mcrae Address [address] [place] [id number] Info.Home Phone: Coverage Status Update:2024 Payer Group Member ID Coverage Type Subscriber Relationship to Subscriber Effective Date Expiration Date Shari AGUILAR [id number] L Kluding Id: [id number] [facility] [place] [address] Home Phone: Email: DECLINE 16[employer] Medicaid [id number] L Kluding Id: [id number] [address] [facility] [place] [address] Home Phone: Email: [facility] [id number] L Kluding Id: [id number] [address] [facility] [place] [address] Home Phone: Email: DECLINE 16Self Encounters Encounter Location(s) Arrival/Admit Date Discharge/Departure Date Discharge/Departure Disposition Provider(s) Departed Physician/ Provider Office Visit -[facility] Family Medicine Kike May 09, 2025 8:52am May 09, 2025 9:39am Discharged to home care or self care (routine discharge) Tino Lagos MD Plan of Treatment Future Tests Future scheduled test information is unavailable Pending Tests Test Name Ordered Date Scheduled Date Comprehensive Metabolic Panel May 09, 2025 9:32am Future Visits Future appointment information is unavailable Future Procedures Procedure Name Ordered Date Scheduled Date A1C with Estimated Average Glu May 09 9:32am Complete Blood Count Auto DiffDecemb2024 9:32amLipid PanelDecember 2024 9:32amFree T4 (Free Thyroxine)May 09, 2025 9:33amThyroid Stimulating HormoneDecemb2024 9:32am Future Medications Future medication information is unavailable Patient Instructions Patient instructions are unavailable
[2025-05-16 10:17] LABS: Hematocrit 41.6 % (36.0-48.0); Hemoglobin 13.5 g/dL (12.0-16.0); Immature Granulocytes Abs Auto 0.03 10^3/uL (0.00-0.03); Immature Granulocytes Pct Auto 0.2 % (0.0-0.5); Lymphocytes Absolute Auto 2.9 10^3/uL (1.2-3.8); Mean Corpuscular HGB Conc 32.5 g/dL (29.9-35.2); Mean Corpuscular Hemoglobin 27.2 pg (26.7-34.0); Mean Corpuscular Volume 83.7 fL (81.0-99.0); Platelet Count 305 10^3/uL (150-450); Red Blood Count 4.97 10^6/uL (4.20-5.40); White Blood Count 12.3 10^3/uL (4.0-11.0)
[2025-05-16 10:52] LABS: Alanine Aminotransferase 47 U/L (14-59); Albumin Globulin Ratio 0.9; Albumin Level 3.8 g/dL (3.4-5.0); Alkaline Phosphatase 76 U/L (46-116); Anion Gap 13.6; Aspartate Amino Transferase 25 U/L (15-37); Blood Urea Nitrogen 13.0 mg/dL (7.0-18.0); Calcium 9.0 mg/dL (8.5-10.1); Carbon Dioxide 28.0 mmol/L (21.0-32.0); Chloride 104 mmol/L (98-107); Cholesterol 125 mg/dL (<=200); Estimated GFR (African America >60 (>=60 mL/min/1.73m^2); Estimated GFR (Non-African Ame >60 (>=60 mL/min/1.73m^2); Globulin 4.1 g/dL; Glucose 107 mg/dL (74-106); HDL Cholesterol 39 mg/dL (40-60); Potassium 3.6 mmol/L (3.5-5.1); Sodium 142 mmol/L (136-145); Thyroid Stimulating Hormone 2.149 uIU/mL (0.358-3.740); Total Protein 7.9 g/dL (6.4-8.2); Triglycerides 131 mg/dL (<=150); VLDL CHOLESTEROL 26.2 mg/dL
== END 2025-05-16 09:51 | disposition home or self-care (01) ==
LOC: LAB 09:51
PROVIDERS: PCP Family Medicine; Visit Provider Family Medicine
DX: Z00.00 Encounter for general adult medical examination without abnormal findings (principal); E03.9 Hypothyroidism, unspecified
CPT/HCPCS: 36415; 80053; 80061; 83036; 84439; 84443; 85025